=== PATIENT | female | born 1950 | race Caucasian/White ===

== ENCOUNTER 2020-04-21 12:29 | Observation (INO) | payer MEDICARE ==
[2020-04-21] MEDS ORDERED: SODIUM CHLORIDE 0.9% 1,000 ML IV STA (12:53)
[2020-04-21] MEDS ORDERED: TRIMETHOBENZAMIDE 100 MG/ML 2 ML VIAL IM STA (12:54)
--- NOTE | 2020-04-21 13:12 | ED ---
Dizziness HPI - General Chief Complaint: Syncope Stated Complaint: Near syncope Time Seen by Provider: 04/21/20 12:35 Source: patient Mode of arrival: ambulatory Limitations: no limitations - History of Present Illness Initial Comments: Patient is a 69-year-old female with past medical history of hypertension presents emergency department after she almost had a syncopal episode at home. She states she was earlier cutting grass and pulling weeds. She felt very faint and the head and therefore went inside. She was nauseated and started having episodes of dry heaving. She got a cool rag to put on her head is she felt extremely heated. She then sat down in the chair and continued to have nausea, dry heaving with some left-sided chest pain and left hand numbness. She denies any medical problems. Does not take any medications. Denies headaches or visual changes. No neck pain. Denies any recent fevers or chills. No cough or shortness of breath. Denies any abdominal pain or changes in her bowel or bladder habits. She has never had a cardiac workup. No other alleviating, precipitating or modifying factors - Related Data Previous Rx's Medication Instructions Recorded Aspirin 81 mg PO DAILY #30 chew 04/22/20 Atorvastatin [Lipitor] 40 mg PO HS #30 tab 04/22/20 Losartan [Cozaar] 25 mg PO DAILY #30 tab 04/22/20 Metoprolol Succinate (ER) [Toprol 50 mg PO HS #30 tab.er.24h 04/22/20 XL] Nitroglycerin Sl Tabs [Nitrostat] 0.4 mg SUBLINGUAL Q5M PRN #25 tab 04/22/20 Allergies Allergy/AdvReac Type Severity Reaction Status Date / Time No Known Allergies Allergy Verified 04/21/20 13:17 Review of Systems ROS Statement: Those systems with pertinent positive or pertinent negative responses have been documented in the HPI. ROS Other: All systems not noted in ROS Statement are negative. Past Medical History Past Medical History: Hypertension History of Any Multi-Drug Resistant Organisms: None Reported Past Surgical History: No Surgical Hx Reported Past Psychological History: No Psychological Hx Reported Smoking Status: Never smoker Past Alcohol Use History: Daily Past Drug Use History: None Reported - Past Family History Mother Family Medical History: Unable to Obtain General Exam Limitations: no limitations General appearance: alert, in no apparent distress Head exam: Present: atraumatic, normocephalic, normal inspection Eye exam: Present: normal appearance, PERRL, EOMI. Absent: scleral icterus, con junctival injection, periorbital swelling ENT exam: Present: normal exam, mucous membranes moist Neck exam: Present: normal inspection. Absent: tenderness, meningismus, lymphadenopathy Respiratory exam: Present: normal lung sounds bilaterally. Absent: respiratory distress, wheezes, rales, rhonchi, stridor Cardiovascular Exam: Present: normal rhythm, tachycardia, normal heart sounds. Absent: systolic murmur, diastolic murmur, rubs, gallop, clicks GI/Abdominal exam: Present: soft, normal bowel sounds. Absent: distended, tenderness, guarding, rebound, rigid Extremities exam: Present: normal inspection, full ROM, normal capillary refill. Absent: tenderness, pedal edema, joint swelling, calf tenderness Back exam: Present: normal inspection Neurological exam: Present: alert, oriented X3, CN II-XII intact Psychiatric exam: Present: normal affect, normal mood Skin exam: Present: warm, intact, normal color, diaphoretic. Absent: rash Course Vital Signs 04/21/20 04/21/20 04/21/20 12:32 12:45 13:00 Temperature 98 F Pulse Rate 118 H 125 H 112 H Respiratory 18 32 H 12 Rate Blood Pressure 124/74 134/86 O2 Sat by Pulse 100 95 Oximetry 04/21/20 04/21/20 04/21/20 13:30 13:53 14:00 Temperature Pulse Rate 113 H 113 H 95 Respiratory 18 14 Rate Blood Pressure 131/91 144/90 O2 Sat by Pulse 99 Oximetry 04/21/20 04/21/20 04/21/20 14:30 14:49 15:00 Temperature Pulse Rate 89 96 87 Respiratory 10 L 12 21 Rate Blood Pressure 161/103 147/95 147/95 O2 Sat by Pulse 98 97 97 Oximetry 04/21/20 04/21/20 04/21/20 15:30 16:00 16:30 Temperature Pulse Rate 90 83 87 Respiratory 23 17 16 Rate Blood Pressure 146/89 150/100 154/89 O2 Sat by Pulse 97 97 96 Oximetry 04/21/20 04/21/20 04/21/20 17:00 17:30 18:00 Temperature Pulse Rate 81 81 90 Respiratory 9 L 17 17 Rate Blood Pressure 165/95 159/92 173/98 O2 Sat by Pulse 98 97 97 Oximetry 04/21/20 18:11 Temperature 98 F Pulse Rate 90 Respiratory 17 Rate Blood Pressure 173/98 O2 Sat by Pulse 97 Oximetry EKG Findings - EKG Comments: EKG Findings:: EKG demonstrates a sinus tachycardia with a ventricular rate of 125. AK interval of 140. QRS 94. QTC 44. S1, Q3 T3 present. No acute ST segment elevations or depressions concerning for ischemic changes. Prolonged QTC Medical Decision Making - Medical Decision Making Arrival the patient is placed into room 1. A thorough history and physical exam was performed. She is hooked up to continuous pulse ox and cardiac monitoring. Peripheral IV is established. She was given a liter bolus of normal saline. I also provided her with 200 mg IM Tigan. Laboratory studies were conducted and the patient went for chest x-ray. Laboratory studies are unremarkable for an elevated troponin of 0.083. The patient has no contra indications to heparin. We did discuss results and recommendation for hepatization for which she did agree. Patient was given a full dose aspirin. Chest x-ray is negative for any acute process. I did call and discuss the case with Dr. Irene who accepted admission for the patient. I also notified Dr. Arechiga at 1525 PM. He does present to the emergency room and evaluate the patient himself. Patient is currently awaiting a bed on the floor - Lab Data Result diagrams: 04/22/20 10:53 04/22/20 10:53 Lab Results 04/21/20 04/21/20 04/21/20 Range/Units 13:28 13:28 13:28 WBC 9.4 (3.8-10.6) k/uL RBC 5.60 H (3.80-5.40) m/uL Hgb 15.8 (11.4-16.0) gm/dL Hct 49.7 H (34.0-46.0) % MCV 88.6 (80.0-100.0) fL MCH 28.3 (25.0-35.0) pg MCHC 31.9 (31.0-37.0) g/dL RDW 13.9 (11.5-15.5) % Plt Count 195 (150-450) k/uL Neutrophils % 77 % Lymphocytes % 16 % Monocytes % 5 % Eosinophils % 2 % Basophils % 1 % Neutrophils # 7.2 (1.3-7.7) k/uL Lymphocytes # 1.5 (1.0-4.8) k/uL Monocytes # 0.5 (0-1.0) k/uL Eosinophils # 0.1 (0-0.7) k/uL Basophils # 0.1 (0-0.2) k/uL PT 9.7 (9.0-12.0) sec INR 0.9 (<1.2) APTT 22.7 (22.0-30.0) sec D-Dimer 0.29 (<0.60) mg/L FEU Sodium (137-145) mmol/L Potassium (3.5-5.1) mmol/L Chloride (98-107) mmol/L Carbon Dioxide (22-30) mmol/L Anion Gap mmol/L BUN (7-17) mg/dL Creatinine (0.52-1.04) mg/dL Est GFR (CKD-EPI)AfAm (>60 ml/min/1.73 sqM) Est GFR (CKD-EPI)NonAf (>60 ml/min/1.73 sqM) Glucose (74-99) mg/dL Calcium (8.4-10.2) mg/dL Total Bilirubin (0.2-1.3) mg/dL AST (14-36) U/L ALT (4-34) U/L Alkaline Phosphatase (38-126) U/L Creatine Kinase (30-135) U/L Troponin I (0.000-0.034) ng/mL Total Protein (6.3-8.2) g/dL Albumin (3.5-5.0) g/dL TSH (0.465-4.680) mIU/L Urine Color Yellow Urine Appearance Clear (Clear) Urine pH 6.5 (5.0-8.0) Ur Specific [place] 1.013 (1.001-1.035) Urine Protein Trace H (Negative) Urine Glucose (UA) Negative (Negative) Urine Ketones Negative (Negative) Urine Blood Negative (Negative) Urine Nitrite Negative (Negative) Urine Bilirubin Negative (Negative) Urine Urobilinogen <2.0 (<2.0) mg/dL Ur Leukocyte Esterase Moderate H (Negative) Urine RBC <1 (0-5) /hpf Urine WBC 2 (0-5) /hpf Ur Squamous Epith Cells 1 (0-4) /hpf Hyaline Casts 11 H (0-2) /lpf Granular Casts 4 (0) /lpf Urine Mucus Rare H (None) /hpf 04/21/20 04/21/20 Range/Units 13:28 13:28 WBC (3.8-10.6) k/uL RBC (3.80-5.40) m/uL Hgb (11.4-16.0) gm/dL Hct (34.0-46.0) % MCV (80.0-100.0) fL MCH (25.0-35.0) pg MCHC (31.0-37.0) g/dL RDW (11.5-15.5) % Plt Count (150-450) k/uL Neutrophils % % Lymphocytes % % Monocytes % % Eosinophils % % Basophils % % Neutrophils # (1.3-7.7) k/uL Lymphocytes # (1.0-4.8) k/uL Monocytes # (0-1.0) k/uL Eosinophils # (0-0.7) k/uL Basophils # (0-0.2) k/uL PT (9.0-12.0) sec INR (<1.2) APTT (22.0-30.0) sec D-Dimer (<0.60) mg/L FEU Sodium 140 (137-145) mmol/L Potassium 3.8 (3.5-5.1) mmol/L Chloride 108 H (98-107) mmol/L Carbon Dioxide 22 (22-30) mmol/L Anion Gap 10 mmol/L BUN 14 (7-17) mg/dL Creatinine 1.01 (0.52-1.04) mg/dL Est GFR (CKD-EPI)AfAm 65 (>60 ml/min/1.73 sqM) Est GFR (CKD-EPI)NonAf 57 (>60 ml/min/1.73 sqM) Glucose 96 (74-99) mg/dL Calcium 9.6 (8.4-10.2) mg/dL Total Bilirubin 0.7 (0.2-1.3) mg/dL AST 31 (14-36) U/L ALT 20 (4-34) U/L Alkaline Phosphatase 89 (38-126) U/L Creatine Kinase 40 (30-135) U/L Troponin I 0.083 H* (0.000-0.034) ng/mL Total Protein 7.1 (6.3-8.2) g/dL Albumin 4.2 (3.5-5.0) g/dL TSH 2.170 (0.465-4.680) mIU/L Urine Color Urine Appearance (Clear) Urine pH (5.0-8.0) Ur Specific [place] (1.001-1.035) Urine Protein (Negative) Urine Glucose (UA) (Negative) Urine Ketones (Negative) Urine Blood (Negative) Urine Nitrite (Negative) Urine Bilirubin (Negative) Urine Urobilinogen (<2.0) mg/dL Ur Leukocyte Esterase (Negative) Urine RBC (0-5) /hpf Urine WBC (0-5) /hpf Ur Squamous Epith Cells (0-4) /hpf Hyaline Casts (0-2) /lpf Granular Casts (0) /lpf Urine Mucus (None) /hpf Critical Care Time Critical Care Time: Yes Critical Care Time: 32 minutes Disposition Clinical Impression: Chest pain, NSTEMI (non-ST elevated myocardial infarction) Disposition: ADMITTED IP TO THIS [facility] Condition: Stable Is patient prescribed a controlled substance at d/c from ED?: No Decision to Admit Reason: Admit from EC Decision Date: 04/21/20 Decision Time: 15:11
[2020-04-21 13:36] LABS: Basophils # (A) 0.1 k/uL (0-0.2); Basophils % (A) 1 %; Eosinophils # (A) 0.1 k/uL (0-0.7); Eosinophils % (A) 2 %; HCT 49.7 % (34.0-46.0); HGB 15.8 gm/dL (11.4-16.0); Lymphocytes # (A) 1.5 k/uL (1.0-4.8); Lymphocytes % (A) 16 %; MCH 28.3 pg (25.0-35.0); MCHC 31.9 g/dL (31.0-37.0); MCV 88.6 fL (80.0-100.0); Mean Platelet Volume 9.1; Monocytes # (A) 0.5 k/uL (0-1.0); Monocytes % (A) 5 %; Neutrophils # (A) 7.2 k/uL (1.3-7.7); Neutrophils % (A) 77 %; Platelet Count 195 k/uL (150-450); RDW 13.9 % (11.5-15.5); WBC 9.4 k/uL (3.8-10.6)
[2020-04-21 13:49] LABS: Albumin 4.2 g/dL (3.5-5.0); Calcium 9.6 mg/dL (8.4-10.2); Potassium 3.8 mmol/L (3.5-5.1); Total Bilirubin 0.7 mg/dL (0.2-1.3); Total Protein 7.1 g/dL (6.3-8.2)
[2020-04-21 13:50] LABS: D-Dimer 0.29 mg/L FEU (<0.60); INR 0.9 (<1.2); Partial Thromboplastin Time 22.7 sec (22.0-30.0); Prothrombin Time 9.7 sec (9.0-12.0)
[2020-04-21 14:00] LABS: Appearance,Urine Clear (Clear); Bilirubin,Urine Negative (Negative); Blood,Urine Negative (Negative); Color,Urine Yellow; Glucose,Urine (UA) Negative (Negative); Granular Casts,Urine 4 /lpf (0); Hyaline Casts,Urine 11 /lpf (0-2); Ketones,Urine Negative (Negative); Leukocyte Esterase,Urine Moderate (Negative); Mucus,Urine Rare /hpf; Nitrite,Urine Negative (Negative); PH, Urine 6.5 (5.0-8.0); Protein,Urine Trace (Negative); RBC,Urine <1 /hpf (0-5); Specific Gravity,Urine 1.013 (1.001-1.035); Squamous Epithelial Cell,Urine 1 /hpf (0-4); Urobilinogen,Urine <2.0 mg/dL (<2.0); WBC,Urine 2 /hpf (0-5)
--- NOTE | 2020-04-21 14:27 | XR ---
EXAMINATION TYPE: XR chest 2V DATE OF EXAM: 04/21/2020 COMPARISON: NONE HISTORY: Shortness of breath TECHNIQUE: Frontal and lateral views of the chest are obtained. FINDINGS: Scattered senescent parenchymal changes noted. Hyperinflation compatible with COPD. No evidence for infiltrate. No evidence for atelectasis. Heart size is stable. Mediastinal structures are stable and grossly unremarkable. No evidence for hilar prominence. Degenerative changes dorsal spine. IMPRESSION: 1. No evidence for acute pulmonary disease.
[2020-04-21] MEDS ORDERED: HEPARIN SODIUM,PORCINE 5,000 UNIT/ML 1 ML VIAL IV PRN (14:32)
[2020-04-21] MEDS ORDERED: HEPARIN SODIUM,PORCINE 5,000 UNIT/ML 1 ML VIAL IV ONE (14:32)
[2020-04-21] MEDS ORDERED: HEPARIN SOD,PORK IN 0.45% NACL 25,000 UNIT in 0.45% NACL 1 250ML.BAG IV SCH (14:45)
[2020-04-21] MEDS ORDERED: NALOXONE 0.4 MG/ML 1 ML VIAL IV PRN (15:11)
[2020-04-21] MEDS ORDERED: ASPIRIN 81 MG PO STA (15:12)
[2020-04-21] MEDS ORDERED: SODIUM CHLORIDE 0.9% 1,000 ML IV SCH (15:15)
[2020-04-21] MEDS ORDERED: NITROGLYCERIN OINT 1 INCH/GM PACKET TOPICAL STA (17:18)
--- NOTE | 2020-04-21 17:21 | P.HPIM ---
History of Present Illness H&P Date: 04/21/20 Chief Complaint: Chest discomfort History of presenting complaint: This is a pleasant 69-year-old patient has not followed with the family doctor for 5 years. Was diagnosed with hypertension and stopped taking her medications. Today she cut the grass and then came back and side in the nearly passed out. [place] nauseated started dry heaving. Also, some chest discomfort th at lasts for short time. No radiation. Was having/hot flashes. No perspiration. She did have some heartburn before going into contact grass. Initial troponin was 0.083 and the ER. Denies any chest pain currently. Laying in bed. Review of systems: GEN.: Tired EYES: None HEENT: None NECK: None RESPIRATORY: None CARDIOVASCULAR: As above GASTROINTESTINAL: None GENITOURINARY: None MUSCULOSKELETAL: [Some joint pains LYMPHATICS: None HEMATOLOGICAL: None PSYCHIATRY: None NEUROLOGICAL: None Past medical history to include: Hypertension patient stopped taking medications Social history: Lives alone. No smoking. Alcohol occasionally Physical examination: VITAL SIGNS: 98, 118, 18, 124/74, 100% on room air GENERAL: [BMI 30.9, laying in bed, awake. EYES: Pupils equal. Conjunctiva normal. HEENT: External appearance of nose and ears normal, oral cavity grossly normal. NECK: JVD not raised; masses not palpable. HEART: First and second heart sounds are normal; no edema. LUNGS: Respiratory rate normal; clear to auscultation. ABDOMEN: Soft, nontender, liver spleen not palpable, no masses palpable. PSYCH: Alert and oriented x3; mood and affect normal. NEUROLOGICAL: Cranial nerves grossly intact; no facial asymmetry, power and sensation grossly intact. LYMPHATICS: No lymph nodes palpable in the axilla and neck INVESTIGATIONS, reviewed in the clinical context: White count 9.4 hemoglobin 15.8 platelets 195 potassium 3.8 creatinine 1.01 Troponin I 0.083, 0.354 TSH 2.1 EKG tracing personally reviewed by me-sinus rhythm Q waves in lead 3 and aVF Chest x-ray film personally reviewed by me-cardiomegaly, portable Assessment: -Acute non-ST elevation myocardial infarction -Essential hypertension -Obesity BMI 30.9 -IV heparin monitoring Plan: Patient is put on IV heparin. Started the patient on beta haydee Lipitor and aspirin. Cartilage was informed. Will need a cardiac catheterization. Care was discussed with the patient. Questions were answered. We will do a 2-D echocardiogram and lipid profile. Past Medical History Past Medical History: Hypertension History of Any Multi-Drug Resistant Organisms: None Reported Past Surgical History: No Surgical Hx Reported Past Psychological History: No Psychological Hx Reported Smoking Status: Never smoker Past Alcohol Use History: Daily Past Drug Use History: None Reported Medications and Allergies Home Medications Medication Instructions Recorded Confirmed Type No Known Home Medications 04/21/20 04/21/20 History Allergies Allergy/AdvReac Type Severity Reaction Status Date / Time No Known Allergies Allergy Verified 04/21/20 13:17 Physical Exam Vitals: Vital Signs Temp Pulse Resp BP Pulse Ox 04/21/20 14:49 96 12 147/95 97 04/21/20 13:53 113 H 04/21/20 13:30 113 H 18 131/91 04/21/20 13:00 112 H 12 134/86 95 04/21/20 12:45 125 H 32 H 04/21/20 12:32 98 F 118 H 18 124/74 100 Intake and Output 04/21/20 04/21/20 04/21/20 06:59 14:59 22:59 Other: Weight 81.647 kg Results CBC & Chem 7: 04/21/20 13:28 04/21/20 13:28 Labs: Abnormal Lab Results - Last 24 Hours (Table) 04/21/20 04/21/20 04/21/20 Range/Units 13:28 13:28 13:28 RBC 5.60 H (3.80-5.40) m/uL Hct 49.7 H (34.0-46.0) % Chloride 108 H (98-107) mmol/L Troponin I (0.000-0.034) ng/mL Urine Protein Trace H (Negative) Ur Leukocyte Esterase Moderate H (Negative) Hyaline Casts 11 H (0-2) /lpf Urine Mucus Rare H (None) /hpf 04/21/20 04/21/20 Range/Units 13:28 16:08 RBC (3.80-5.40) m/uL Hct (34.0-46.0) % Chloride (98-107) mmol/L Troponin I 0.083 H* 0.354 H* (0.000-0.034) ng/mL Urine Protein (Negative) Ur Leukocyte Esterase (Negative) Hyaline Casts (0-2) /lpf Urine Mucus (None) /hpf
--- NOTE | 2020-04-21 20:10 | CONS ---
CONSULTATION CHIEF COMPLAINT: Chest tightness. This is a 69-year-old lady with history of hypertension who has not been taking her of herself, has not been taking any medications regularly. She came into hospital having had an episode of chest tightness, nausea and diaphoresis after she was out cutting her grass and then walked into the house. She had an episode of chest tightness a few days ago, and this is the second episode. She came to the ER, where she was found to be in sinus tachycardia and the troponins were mildly elevated. She denies leg edema, PND or orthopnea. There is no history of coronary artery disease or congestive heart failure. There is no family history of premature coronary artery disease. She is not a smoker. Drinks alcohol every day. MEDICATIONS: None. ALLERGIES: NONE. FAMILY HISTORY: Negative for premature coronary artery disease. SOCIAL HISTORY: Negative for smoking. REVIEW OF SYSTEMS: HEENT is unremarkable. CARDIAC: As described above. RESPIRATORY: As described above. GI: Negative. GENITOURINARY: Negative. ALLERGY: Negative. IMMUNOLOGY: Negative. SKIN: Negative. MUSCULOSKELETAL: DERMATOLOGY: Negative. CONSTITUTIONAL: Negative. ONCOLOGICAL: Negative. ENCAPSULATOR: Negative. Rest of system review is not relevant. PHYSICAL EXAMINATION: Comfortable at rest. Vital signs are stable. Blood pressure is elevated. Heart rate is elevated. There is no jugular venous distention. Carotid upstroke is normal. There is no bruit. Chest exam reveals good air entry bilaterally. Heart exam reveals first and second heart sounds. No gallop. No murmur. No rub. peripheral pulses are felt. ENCAPSULATOR exam does not reveal focal neurological deficits. ASSESSMENT: Acute fwb-[id number]-elevation myocardial infarction. PLAN: for cardiac catheterization tomorrow. In the meantime, will treat her with aspirin, intravenous heparin, nitrates, beta haydee MMODL / IJN: [id number] /
[2020-04-21] MEDS ORDERED: METOPROLOL TARTRATE 25 MG TAB PO SCH (21:00)
[2020-04-21] MEDS ORDERED: METOPROLOL SUCCINATE (ER) 50 MG TAB.ER.24H PO SCH (21:00)
[2020-04-21] MEDS ORDERED: ATORVASTATIN 40 MG TAB PO SCH (21:00)
[2020-04-21] MEDS ORDERED: ACETAMINOPHEN TAB 325 MG TAB PO PRN (22:51)
[2020-04-22 07:55] VITALS: TEMP 97.9
[2020-04-22] MEDS ORDERED: SODIUM CHLORIDE 0.9% 1,000 ML in EMPTY BAG 1 BAG IV ONE (08:09)
[2020-04-22] MEDS ORDERED: ALPRAZolam 0.5 MG TAB PO PRN (08:09)
[2020-04-22] MEDS ORDERED: ALPRAZolam 0.25 MG TAB PO PRN (08:09)
[2020-04-22] MEDS ORDERED: ATORVASTATIN 80 MG TAB PO STA (08:09)
[2020-04-22] MEDS ORDERED: NITROGLYCERIN SL TABS 0.4 MG TAB SUBLINGUAL PRN (08:09)
[2020-04-22] MEDS ORDERED: ASPIRIN 325 MG TAB PO STA (08:09)
[2020-04-22] MEDS ORDERED: ASPIRIN 81 MG PO SCH (09:00)
[2020-04-22] MEDS ORDERED: ASPIRIN 325 MG TAB PO SCH (09:00)
[2020-04-22] MEDS ORDERED: fentaNYL (PF) 50 MCG/ML 2 ML AMP ONE (09:01)
[2020-04-22] MEDS ORDERED: IV FLUID CONTINUATION 950 ML IV ONE (09:03)
[2020-04-22] MEDS ORDERED: fentaNYL (PF) 50 MCG/ML 2 ML AMP IVP ONE (09:05)
[2020-04-22] MEDS ORDERED: MIDAZOLAM 2 MG/2 ML VIAL IVP ONE (09:05)
[2020-04-22] MEDS ORDERED: LIDOCAINE 1% INJ 10MG/ML (20 ML MDV) SQ ONE (09:08)
[2020-04-22] MEDS ORDERED: IOPAMIDOL-370 125ML BTL INJ ONE (09:24)
[2020-04-22] MEDS ORDERED: RX INFO: IV CONTRAST WAS GIVEN 1 EACH MISC MISCELLANE PRN (09:33)
--- NOTE | 2020-04-22 09:47 | ECHOF ---
Referral Reason:Acute SC MEASUREMENTS -------- HEIGHT: 162.6 cm WEIGHT: 81.6 kg BP: IVSd: 1.4 cm (0.6 - 1.1) LVIDd: 3.5 cm (3.9 - 5.3) LVPWd: 1.5 cm (0.6 - 1.1) EDV(Teich): 51 ml IVSs: 1.5 cm LVIDs: 1.4 cm LVPWs: 1.6 cm %IVS Thck: 7 % ESV(Teich): 6 ml EF(Teich): 89 % %FS: 59 % SV(Teich): 46 ml RVIDd: 2.8 cm (< 3.3) IVC: 12.12 mm LALs A4C: 4.3 cm LAAs A4C: 9.1 cm LAESV A-L A4C: 17 ml LAESV MOD A4C: 15 ml LALs A2C: 4.7 cm LAAs A2C: 14.5 cm LAESV A-L A2C: 38 ml LAESV MOD A2C: 35 ml LAESV(A-L): 26 ml LAESV Index (A-L): 14.01 ml/m Ao Diam: 3.5 cm (2.0 - 3.7) LA Diam: 3.2 cm (2.7 - 3.8) AV Cusp: 2.2 cm (1.5 - 2.6) EPSS: 0.8 cm MV E Dejna: 1.00 m/s MV DecT: 133 ms MV Dec Isabela: 7.5 m/s MV A Dejan: 1.42 m/s MV E/A Ratio: 0.70 MV PHT: 39 ms MR Vmax: 1.03 m/s MR maxP.27 mmHg AV Vmax: 1.09 m/s AV maxP.71 mmHg TR Vmax: 1.22 m/s TR maxP.99 mmHg RAP: 5.00 mmHg RVSP: 10.99 mmHg MV EF SLOPE: 51.88 mm/s (70 - 150) MV EXCURSION: 14.92 mm (> 18.000) FINDINGS -------- This was a technically adequate study. The left ventricular size is normal. There is moderate concentric left ventricular hypertrophy. O verall left ventricular systolic function is normal with, an EF between 55 - 60 %. Normal LAP. Grad e 1 Diastolic Dysfunction. The right ventricle is normal in size. The left atrial size is normal. Normal LA size by volume 22+/-6 ml/m2. The right atrial size is normal. Interatrial and interventricular septum intact. The aortic valve is trileaflet and appears structurally normal. The mitral valve is normal. There is trace mitral regurgitation. The tricuspid valve appears structurally normal. Trace tricuspid regurgitation present. Right romy tricular systolic pressure is normal at < 35 mmHg. There is no pulmonic regurgitation present. The aortic root size is normal. Normal inferior vena cava with normal inspiratory collapse consistent with estimated right atrial pre ssure of 5 mmHg. There is no pericardial effusion. CONCLUSIONS -------- 1. The left ventricular size is normal. 2. There is moderate concentric left ventricular hypertrophy. 3. Overall left ventricular systolic function is normal with, an EF between 55 - 60 %. 4. Normal LAP. Grade 1 Diastolic Dysfunction. 5. There is trace mitral regurgitation. 6. Trace tricuspid regurgitation present. 7. There is no pericardial effusion. [employer]: Ashley Williamson, [facility]
[2020-04-22 10:28] VITALS: RESP 16
[2020-04-22] MEDS ORDERED: LOSARTAN 25 MG TAB PO SCH (11:13)
[2020-04-22 11:29] LABS: Basophils # (A) 0.1 k/uL (0-0.2); Basophils % (A) 1 %; Eosinophils # (A) 0.1 k/uL (0-0.7); Eosinophils % (A) 1 %; HCT 41.7 % (34.0-46.0); HGB 13.2 gm/dL (11.4-16.0); Lymphocytes # (A) 1.8 k/uL (1.0-4.8); Lymphocytes % (A) 26 %; MCH 28.5 pg (25.0-35.0); MCHC 31.7 g/dL (31.0-37.0); MCV 89.8 fL (80.0-100.0); Monocytes # (A) 0.4 k/uL (0-1.0); Monocytes % (A) 5 %; Neutrophils # (A) 4.5 k/uL (1.3-7.7); Neutrophils % (A) 66 %; Platelet Count 144 k/uL (150-450); RBC 4.64 m/uL (3.80-5.40); WBC 6.9 k/uL (3.8-10.6)
[2020-04-22 11:38] LABS: Calcium 8.5 mg/dL (8.4-10.2); Potassium 4.3 mmol/L (3.5-5.1)
--- NOTE | 2020-04-22 12:15 | CC ---
CARDIAC CATHETERIZATION REPORT INDICATION: Acute non ST-segment elevation ND. PROCEDURE NOTE: After obtaining informed consent, left heart catheterization and coronary angiogram were performed via the right femoral artery using standard Zeus catheters. The patient tolerated the procedure well without any obvious immediate complications. A femoral angiogram was performed and decision was made for manual hemostasis. Patient received moderate conscious sedation and total sedation time was 17 minutes. FINDINGS: HEMODYNAMICS: Left ventricular end-diastolic pressure is 16 mm. There is no significant gradient across the aortic valve. LEFT VENTRICULOGRAM: Not performed. ANGIOGRAPHIC DATA: LEFT MAIN CORONARY ARTERY: Left main coronary artery is a normal-sized vessel and is free of stenosis. Divides into left anterior descending coronary artery and circumflex coronary artery. LEFT ANTERIOR DESCENDING CORONARY ARTERY: LAD and its branches, circumflex coronary artery and its branches are free of significant stenosis. RIGHT CORONARY ARTERY: Right coronary artery is a large dominant vessel and is free of significant disease. CONCLUSIONS: Normal coronary arteries. PLAN: The exact etiology for troponin elevation is undetermined. The patient has uncontrolled hypertension. We will treat it aggressively. Will follow the echo results. Hopefully she can be discharged home in the morning. MMODL / IJN: [id number] /
[2020-04-22 12:23] LABS: INR 0.9 (<1.2); Partial Thromboplastin Time 26.7 sec (22.0-30.0); Prothrombin Time 9.9 sec (9.0-12.0)
[2020-04-22 16:36] VITALS: BP 148/80; PULSE 79
--- NOTE | 2020-04-22 22:25 | P.DS ---
Providers Date of admission: 04/21/20 15:15 Expected date of discharge: 04/22/20 Attending physician: Curtis Irene Consults: 04/21/20 15:11 Consult Physician Urgent Consulting Provider: [facility] Consult Reason/Comments: acute chest pain, NSTEMI Do you want consulting provider notified?: Yes Primary care physician: [facility] Course: Chief Complaint: Chest discomfort History of presenting complaint: This is a pleasant 69-year-old patient has not followed with the family doctor for 5 years. Was diagnosed with hypertension and stopped taking her medications. Today she cut the grass and then came back and side in the nearly passed out. [place] nauseated started dry heaving. Also, some chest discomfort that lasts for short time. No radiation. Was having/hot flashes. No perspiration. She did have some heartburn before going into contact grass. Initial troponin was 0.083 and the ER. Denies any chest pain currently. Laying in bed. Today-underwent cardiac catheterization. Coronary arteries normal. Possible patient may have had a plaque rupture. With a small area of infarct. 2-D echo results noted. No wall motion abnormality. Results were discussed in detail with the patient and daughter the bedside. Risk factor modification was discussed. Questions answered. Antihypertensive started Discussion and discharge planning more than 35 minutes Consultation: Dr. Jona Arechiga from cardiology Physical examination: VITAL SIGNS: 97.9, 68, 16, 140/85, GENERAL: [BMI 30.9, laying in bed, awake. EYES: Pupils equal. Conjunctiva normal. NECK: JVD not raised; masses not palpable. HEART: First and second heart sounds are normal; no edema. LUNGS: Respiratory rate normal; clear to auscultation. ABDOMEN: Soft, nontender, liver spleen not palpable, no masses palpable. PSYCH: Alert and oriented x3; mood and affect normal. INVESTIGATIONS, reviewed in the clinical context: White count 9.4 hemoglobin 15.8 platelets 195 potassium 3.8 creatinine 1.01 Troponin I 0.083, 0.354 TSH 2.1 EKG tracing personally reviewed by me-sinus rhythm Q waves in lead 3 and aVF Chest x-ray film personally reviewed by me-cardiomegaly, portable 2-D echocardiogram-EF 55-60%, moderate concentric LVH Assessment: -Acute non-ST elevation myocardial infarction-possibly from plaque rupture -Essential hypertension -Obesity BMI 30.9 -IV heparin monitoring -Cardiac catheterization with normal coronaries -Hypertensive heart disease Disposition: Home Patient Condition at Discharge: Stable Plan - Discharge Summary Discharge Rx Participant: No New Discharge Prescriptions: New Aspirin 81 mg PO DAILY #30 chew Losartan [Cozaar] 25 mg PO DAILY #30 tab Atorvastatin [Lipitor] 40 mg PO HS #30 tab Nitroglycerin Sl Tabs [Nitrostat] 0.4 mg SUBLINGUAL Q5M PRN #25 tab PRN Reason: Chest Pain Metoprolol Succinate (ER) [Toprol XL] 50 mg PO HS #30 tab.er.24h Discharge Medication List Aspirin 81 mg PO DAILY #30 chew 04/22/20 [Rx] Atorvastatin [Lipitor] 40 mg PO HS #30 tab 04/22/20 [Rx] Losartan [Cozaar] 25 mg PO DAILY #30 tab 04/22/20 [Rx] Metoprolol Succinate (ER) [Toprol XL] 50 mg PO HS #30 tab.er.24h 04/22/20 [Rx] Nitroglycerin Sl Tabs [Nitrostat] 0.4 mg SUBLINGUAL Q5M PRN #25 tab 04/22/20 [Rx] Follow up Appointment(s)/Referral(s): Chintan Fritz MD [Primary Care Provider] - 1 Week (Please call and schedule follow up appointment on Saturday. Office closed at this time. ) Mason Arechiga MD [STAFF PHYSICIAN] - 05/02/20 9:45 am Patient Instructions/Handouts: Left Heart Catheterization (DC), How to Stop Smoking (DC), Heart Healthy Diet (DC), Hypertension (DC) Activity/Diet/Wound Care/Special Instructions: CARDIAC CATH 1. Support your puncture site by applying firm, steady pressure whenever you cough, laugh, sneeze or bear down to have a bowel movement (2-day restriction). 2. Watch for any excessive bruising, active bleeding, a firm knot forming under your skin, extreme tenderness and signs of infection (redness, swelling, fever). 3. Shower daily, do not soak puncture in a tub bath, jacuzzi, pool, [place] etc. for 1 week. This is to prevent risk of infection. 4. Drink plenty of fluids the day of and day after your procedure to flush contrast dye out of your kidneys. 5. Take all medications as directed. Never stop any new medication without your physicians OK. 6. No driving for 2 days after procedure. 7. 10- pound weight lifting restriction for 1 week. 8. Low sodium/low fat diet. 9. Activity limited until follow up appointment with your construction analyst. In case of any problems, please call [facility] [place] @ [phone]. Discharge Disposition: HOME SELF-CARE
[2020-04-23] MEDS ORDERED: ASPIRIN 325 MG TAB PO SCH (09:00)
[2020-04-23] MEDS ORDERED: LOSARTAN 25 MG TAB PO SCH (09:00)
[2020-04-23] MEDS ORDERED: ASPIRIN 81 MG PO SCH (09:00)
== END 2020-04-22 18:10 | disposition home or self-care (01) ==
LOC: EC 12:29 → 3SCARD 15:15
PROVIDERS: ADMIT Hospitalist; ATTEND Hospitalist
DX: I21.4 Non-ST elevation (NSTEMI) myocardial infarction (principal); R55 Syncope and collapse; I10 Essential (primary) hypertension; I11.9 Hypertensive heart disease without heart failure; E66.9 Obesity, unspecified; Z68.30 Body mass index [BMI] 30.0-30.9, adult; Z91.14 Patient's other noncompliance with medication regimen; Z79.82 Long term (current) use of aspirin; Z79.899 Other long term (current) drug therapy
CPT/HCPCS: 96366 ×3; 93005 ×2; 96376; 96361; 96365; 96372; 99285; 36415; 93306; 93458; 85379; 80061; 80053; 80048; 84443; 82550; 84484; 85025 ×2; 85610 ×2; 85730 ×2; 81001; 71046; G0378 ×2; C1769 ×2; C1894; J2250; J1644 ×2; J3250; J2001; J3010; Q9967

== ENCOUNTER 2020-05-08 13:38 | Emergency (ER) | payer MEDICARE ==
[2020-05-08 13:45] VITALS: RESP 18; TEMP 98.4
--- NOTE | 2020-05-08 13:58 | ED ---
General Adult HPI - General Chief complaint: Chest Pain Stated complaint: chest pain Time Seen by Provider: 05/08/20 13:49 Source: patient Mode of arrival: ambulatory Limitations: no limitations - History of Present Illness Initial comments: Dictation was produced using SinglePlatform dictation software. please excuse any grammatical, word or spelling errors. This patient was cared for during a federal and state declared state of emergency secondary to Covid 19 Chief Complaint: 69-year-old female with past medical history of hypertension, myocardial infarction presents today with chest tightness. History of Present Illness: It is a 69-year-old female she presents today with chest tightness that began at 9 AM this morning. One week ago patient was admitted to the hospital for same complaint. At that time she was evaluated by cardiology and had a cardiac catheterization performed. She did not have any stents placed during that time. She is been sluggish consuming discharge from the hospital week ago. She is concerned about her symptoms today decided come to the emergency department. Patient denies any radiation of symptoms to her shoulders. No associated diaphoresis. She does report that she does have some associated nausea. The ROS documented in this emergency department record has been reviewed and confirmed by me. Those systems with pertinent positive or negative responses have been documented in the HPI. All other systems are other negative and/or noncontributory. PHYSICAL EXAM: General Impression: Alert and oriented x3, not in acute distress HEENT: Normocephalic atraumatic, extra-ocular movements intact, pupils equal and reactive to light bilaterally, mucous membranes moist. Cardiovascular: Heart regular rate and rhythm Chest: Able to complete full sentences, no retractions, no tachypnea Abdomen: abdomen soft, non-tender, non-distended, no organomegaly Musculoskeletal: Pulses present and equal in all extremities, no peripheral edema Motor: no focal deficits noted Neurological: CN II-XII grossly intact, no focal motor or sensory deficits noted Skin: Intact with no visualized rashes Psych: Normal affect and mood ED course: 69-year-old female presents with symptoms concerning for ACS. Signs upon arrival are within acceptable limits. Patient was seen 1 week ago and admitted to the hospital where she had cardiac cath, echocardiogram performed. She did not have any stent placement performed at that time. Cath report was reviewed. Patient had normal coronary artery angiograms. There is no obvious cause for patient's elevated troponin. Echocardiogram. Mostly unremarkable except for some trace regurgitation with mitral and tricuspid. Chart review shows that patient was here in our hospital 2 weeks ago. Her troponin was elevated 0.377 and decreased 2.083. She had a d-dimer performed upon initial evaluation of 0.29. Laboratory evaluation obtained. CBC unremarkable. Coag panel is negative. Metabolic panel is unremarkable. Troponin is negative. Creatinine is elevated which is above her baseline. Chest x-ray is nonacute. Disposition options were discussed with patient. She understands that it's difficult to exclude acute coronary syndrome with only one troponin. However she would like to be discharged. Patient was given another disposition options of waiting for a 3 hour troponin in the emergency department. She would prefer to be discharge and to follow-up with her primary care physician. Patient understands that we have not ruled out acute coronary syndrome with reasonable certainty if we do not have a second troponin. Nonetheless patient is low risk given recent cardiac catheterization and is negative and recent negative cardiac echocardiogram. Patient like some steroid for her ALLERGY-type symptoms. Patient is agreeable with plan. She knows to return or seek immediate medical attention if her symptoms acutely worsen. EKG interpretation: Ventricular rate 74, normal sinus rhythm, ID interval 1:30, QRS 96, QTC 448. No ID prolongation, no QTC prolongation, no ST or T-wave changes noted. Overall, this EKG is unremarkable - Related Data Home Medications Medication Instructions Recorded Confirmed Cholecalciferol [Vitamin D3 (25 1,000 unit PO DAILY 05/08/20 05/08/20 Mcg = 1000 Iu)] Losartan [Cozaar] 25 mg PO BID 05/08/20 05/08/20 Metoprolol Succinate (ER) [Toprol 50 mg PO HS 05/08/20 05/08/20 XL] Previous Rx's Medication Instructions Recorded Aspirin 81 mg PO DAILY #30 chew 04/22/20 Atorvastatin [Lipitor] 40 mg PO HS #30 tab 04/22/20 Nitroglycerin Sl Tabs [Nitrostat] 0.4 mg SUBLINGUAL Q5M PRN #25 tab 04/22/20 Allergies Allergy/AdvReac Type Severity Reaction Status Date / Time No Known Allergies Allergy Verified 05/08/20 15:04 Review of Systems ROS Statement: Those systems with pertinent positive or pertinent negative responses have been documented in the HPI. ROS Other: All systems not noted in ROS Statement are negative. Past Medical History Past Medical History: Hypertension, Myocardial Infarction ([place]) History of Any Multi-Drug Resistant Organisms: None Reported Past Surgical History: Heart Catheterization Past Psychological History: No Psychological Hx Reported Smoking Status: Never smoker Past Alcohol Use History: Occasional Past Drug Use History: None Reported - Past Family History Mother Family Medical History: Unable to Obtain General Exam Limitations: no limitations Course Vital Signs 05/08/20 05/08/20 13:42 15:01 Temperature 98.4 F Pulse Rate 85 84 Respiratory 18 18 Rate Blood Pressure 160/85 151/91 O2 Sat by Pulse 98 96 Oximetry Medical Decision Making - Lab Data Result diagrams: 05/08/20 14:03 05/08/20 14:03 Lab Results 05/08/20 05/08/20 05/08/20 Range/Units 14:03 14:03 14:03 WBC 8.1 (3.8-10.6) k/uL RBC 4.81 (3.80-5.40) m/uL Hgb 13.9 (11.4-16.0) gm/dL Hct 42.6 (34.0-46.0) % MCV 88.4 (80.0-100.0) fL MCH 28.8 (25.0-35.0) pg MCHC 32.6 (31.0-37.0) g/dL RDW 13.9 (11.5-15.5) % Plt Count 217 (150-450) k/uL Neutrophils % 66 % Lymphocytes % 23 % Monocytes % 6 % Eosinophils % 2 % Basophils % 1 % Neutrophils # 5.4 (1.3-7.7) k/uL Lymphocytes # 1.9 (1.0-4.8) k/uL Monocytes # 0.5 (0-1.0) k/uL Eosinophils # 0.2 (0-0.7) k/uL Basophils # 0.1 (0-0.2) k/uL PT 9.7 (9.0-12.0) sec INR 0.9 (<1.2) APTT 23.6 (22.0-30.0) sec Sodium 137 (137-145) mmol/L Potassium 4.2 (3.5-5.1) mmol/L Chloride 106 (98-107) mmol/L Carbon Dioxide 24 (22-30) mmol/L Anion Gap 7 mmol/L BUN 25 H (7-17) mg/dL Creatinine 1.47 H (0.52-1.04) mg/dL Est GFR (CKD-EPI)AfAm 41 (>60 ml/min/1.73 sqM) Est GFR (CKD-EPI)NonAf 36 (>60 ml/min/1.73 sqM) Glucose 107 H (74-99) mg/dL Calcium 9.3 (8.4-10.2) mg/dL Magnesium 2.0 (1.6-2.3) mg/dL Total Bilirubin 0.7 (0.2-1.3) mg/dL AST 31 (14-36) U/L ALT 27 (4-34) U/L Alkaline Phosphatase 91 (38-126) U/L Creatine Kinase 43 (30-135) U/L CK-MB (CK-2) (0.0-2.4) ng/mL Troponin I (0.000-0.034) ng/mL NT-Pro-B Natriuret Pep pg/mL Total Protein 6.6 (6.3-8.2) g/dL Albumin 3.9 (3.5-5.0) g/dL 05/08/20 05/08/20 Range/Units 14:03 14:03 WBC (3.8-10.6) k/uL RBC (3.80-5.40) m/uL Hgb (11.4-16.0) gm/dL Hct (34.0-46.0) % MCV (80.0-100.0) fL MCH (25.0-35.0) pg MCHC (31.0-37.0) g/dL RDW (11.5-15.5) % Plt Count (150-450) k/uL Neutrophils % % Lymphocytes % % Monocytes % % Eosinophils % % Basophils % % Neutrophils # (1.3-7.7) k/uL Lymphocytes # (1.0-4.8) k/uL Monocytes # (0-1.0) k/uL Eosinophils # (0-0.7) k/uL Basophils # (0-0.2) k/uL PT (9.0-12.0) sec INR (<1.2) APTT (22.0-30.0) sec Sodium (137-145) mmol/L Potassium (3.5-5.1) mmol/L Chloride (98-107) mmol/L Carbon Dioxide (22-30) mmol/L Anion Gap mmol/L BUN (7-17) mg/dL Creatinine (0.52-1.04) mg/dL Est GFR (CKD-EPI)AfAm (>60 ml/min/1.73 sqM) Est GFR (CKD-EPI)NonAf (>60 ml/min/1.73 sqM) Glucose (74-99) mg/dL Calcium (8.4-10.2) mg/dL Magnesium (1.6-2.3) mg/dL Total Bilirubin (0.2-1.3) mg/dL AST (14-36) U/L ALT (4-34) U/L Alkaline Phosphatase (38-126) U/L Creatine Kinase (30-135) U/L CK-MB (CK-2) 0.7 (0.0-2.4) ng/mL Troponin I <0.012 (0.000-0.034) ng/mL NT-Pro-B Natriuret Pep 125 pg/mL Total Protein (6.3-8.2) g/dL Albumin (3.5-5.0) g/dL Disposition Clinical Impression: Chest tightness Disposition: HOME SELF-CARE Condition: Good Instructions (If sedation given, give patient instructions): Chest Pain (ED) Is patient prescribed a controlled substance at d/c from ED?: No Referrals: Chintan Fritz MD [Primary Care Provider] - 1-2 days Time of Disposition: 15:41
[2020-05-08 14:23] LABS: Basophils # (A) 0.1 k/uL (0-0.2); Basophils % (A) 1 %; Eosinophils # (A) 0.2 k/uL (0-0.7); Eosinophils % (A) 2 %; HCT 42.6 % (34.0-46.0); HGB 13.9 gm/dL (11.4-16.0); Lymphocytes # (A) 1.9 k/uL (1.0-4.8); Lymphocytes % (A) 23 %; MCH 28.8 pg (25.0-35.0); MCHC 32.6 g/dL (31.0-37.0); MCV 88.4 fL (80.0-100.0); Mean Platelet Volume 9.1; Monocytes # (A) 0.5 k/uL (0-1.0); Monocytes % (A) 6 %; Neutrophils # (A) 5.4 k/uL (1.3-7.7); Neutrophils % (A) 66 %; Platelet Count 217 k/uL (150-450); RBC 4.81 m/uL (3.80-5.40); RDW 13.9 % (11.5-15.5); WBC 8.1 k/uL (3.8-10.6)
--- NOTE | 2020-05-08 14:29 | XR ---
EXAMINATION TYPE: XR chest 2V DATE OF EXAM: 05/08/2020 COMPARISON: 04/21/2020 HISTORY: Chest pain TECHNIQUE: 2 views FINDINGS: Heart is normal. Lungs are clear of infiltrate. Costophrenic angles are clear. There are ch est leads. Bony thorax is intact. IMPRESSION: No active cardiopulmonary disease. Normal heart.
[2020-05-08 14:31] LABS: INR 0.9 (<1.2); Partial Thromboplastin Time 23.6 sec (22.0-30.0); Prothrombin Time 9.7 sec (9.0-12.0)
[2020-05-08 14:32] LABS: Albumin 3.9 g/dL (3.5-5.0); Calcium 9.3 mg/dL (8.4-10.2); Potassium 4.2 mmol/L (3.5-5.1); Total Bilirubin 0.7 mg/dL (0.2-1.3); Total Protein 6.6 g/dL (6.3-8.2)
[2020-05-08 14:54] LABS: Creatine Kinase MB 0.7 ng/mL (0.0-2.4); Troponin I <0.012 ng/mL (0.000-0.034)
[2020-05-08 15:03] VITALS: PULSE 84
[2020-05-08 15:04] VITALS: BP 151/91
[2020-05-08] MEDS ORDERED: DEXAMETHASONE SOD PHOSPHATE 10 MG/ML 1 ML VIAL IV STA (15:42)
[2020-05-08] MEDS ORDERED: ASPIRIN 81 MG PO STA (15:42)
== END 2020-05-08 15:55 | disposition home or self-care (01) ==
LOC: EC 13:38
DX: R07.89 Other chest pain (principal); I10 Essential (primary) hypertension; R79.89 Other specified abnormal findings of blood chemistry; I25.2 Old myocardial infarction; Z79.899 Other long term (current) drug therapy
CPT/HCPCS: 36415; 93005; 83880; 80053; 82550; 82553; 83735; 84484; 85025; 85610; 85730; 71046; 99285; 96374; J1100

== ENCOUNTER → 2020-06-17 | Outpatient (CLI) | payer MEDICARE ==
--- NOTE | 2020-06-17 16:08 | US ---
EXAMINATION TYPE: US carotid duplex BILAT DATE OF EXAM: 06/17/2020 COMPARISON: NONE CLINICAL HISTORY: 70-year-old female R42 dizziness. No history of stroke, NE, dizzy TECHNIQUE: Carotid duplex ultrasound examination. Indirect Doppler criteria was utilized. FINDINGS: EXAM MEASUREMENTS: RIGHT: Peak Systolic Velocity (PSV) cm/sec ----- Right CCA: 86.1 ----- Right ICA: 76.4 ----- Right ECA: 107.9 ICA/CCA ratio: 0.9 RIGHT: End Diastole cm/sec ----- Right CCA: 25.6 ----- Right ICA: 25.8 ----- Right ECA: 27.2 LEFT: Peak Systolic Velocity (PSV) cm/sec ----- Left CCA: 91.9 ----- Left ICA: 91.3 ----- Left ECA: 61.7 ICA/CCA ratio: 1.0 LEFT: End Diastole cm/sec ----- Left CCA: 29.9 ----- Left ICA: 40.7 ----- Left ECA: 15.4 VERTEBRALS (direction of flow): Right Vertebral: Antegrade Left Vertebral: Antegrade Rhythm: Normal Loss Prevention Manager notes: Mild homogeneous plaque seen with no significant stenosis IMPRESSION: No hemodynamically significant internal carotid artery stenosis on either side. Criteria for Assigning % of Stenosis / Diameter reduction (Estimation based on the indirect measurements of the internal carotid artery velocities (ICA PSV). 1. Normal (no stenosis)=ICA PSV < 125 cm/s: ratio < 2.0: ICA EDV<40 cm/s. 2. Less than 50% stenosis=ICA PSV < 125 cm/s: ratio < 2.0: ICA EDV<40 cm/s. 3. 50 to 69% stenosis=ICA PSV of 125 to 230 cm/s: ration 2.0 ? 4.0: ICA EDV 40-100 cm/s. 4. Greater than 70% stenosis to near occlusion= ICA PSV > 230 cm/s: ratio > 4.0: ICA EDV > 100 cm/s. 5. Near occlusion= ICA PSV velocities may be low or undetectable: variable ratio and ICA EDV. 6. Total occlusion=unable to detect flow.
== END | disposition home or self-care (01) ==
LOC: RADUSWWP 15:33
PROVIDERS: ATTEND Family Medicine
DX: R42 Dizziness and giddiness (principal)
CPT/HCPCS: 93880

== ENCOUNTER 2020-11-11 12:36 | Emergency (ER) | payer MEDICARE ==
[2020-11-11 13:16] VITALS: TEMP 98.4
--- NOTE | 2020-11-11 13:17 | ED ---
General Adult HPI - General Source: patient, RN notes reviewed Mode of arrival: ambulatory Limitations: no limitations <Baltazar Evans - Last Filed: 11/11/20 13:14> <Lillie Linder - Last Filed: 11/11/20 17:10> - General Stated complaint: Hypertensive, abn EKG Time Seen by Provider: 11/11/20 13:10 - History of Present Illness Initial comments: This a 70-year-old female presents emergency Department chief complaint of hypertension. 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 Patient states that she was told her blood pressure medications were messed up. She was given 2 Prescription for losartan and metoprolol. Patient states that she went for recheck today in which she stopped at a pharmacy blood pressure was elevated and went to urgent care and sent here Patient was sent here for further evaluation. She states she feels slightly dizzy but otherwise no other complaints. (Baltazar Evans) 70-year-old feel presents today for chief complaint of elevated blood pressure reading. Patient states that on Saturday she was at her six-month follow-up with her dowel machine operator after an N STEMI. Patient states that she was told her blood pressure medications were not cracked and they were represcribed. Patient states that she was given a prescription for losartan and metoprolol. Patient states she was told to recheck it so she went to [facility] she states that the BP was high then she went to urgent care and was sent here for further evaluation. Pt states she feels "woozy", like a brain fog, but denies sensation room is spinning, presyncope, syncope, nausea, vomiting, abdominal pain, jaw pain, vision changes weakness sensation deficits, speech changes, difficulty ambulating. Patient appears well nontoxic on my history taking. (Lillie Linder) - Related Data Home Medications Medication Instructions Recorded Confirmed Cholecalciferol [Vitamin D3 (25 1,000 unit PO DAILY 05/08/20 05/08/20 Mcg = 1000 Iu)] Losartan [Cozaar] 25 mg PO BID 05/08/20 05/08/20 Metoprolol Succinate (ER) [Toprol 50 mg PO HS 05/08/20 05/08/20 XL] Previous Rx's Medication Instructions Recorded Aspirin 81 mg PO DAILY #30 chew 04/22/20 Atorvastatin [Lipitor] 40 mg PO HS #30 tab 04/22/20 Nitroglycerin Sl Tabs [Nitrostat] 0.4 mg SUBLINGUAL Q5M PRN #25 tab 04/22/20 Allergies Allergy/AdvReac Type Severity Reaction Status Date / Time No Known Allergies Allergy Verified 11/11/20 13:15 Review of Systems ROS Other: All systems not noted in ROS Statement are negative. <Baltazar Evans - Last Filed: 11/11/20 13:14> ROS Other: All systems not noted in ROS Statement are negative. <Lillie Linder - Last Filed: 11/11/20 17:10> ROS Statement: Those systems with pertinent positive or pertinent negative responses have been documented in the HPI. Past Medical History Past Medical History: Hypertension, Myocardial Infarction ([place]) History of Any Multi-Drug Resistant Organisms: None Reported Past Surgical History: Heart Catheterization Past Psychological History: No Psychological Hx Reported Smoking Status: Never smoker Past Alcohol Use History: Occasional Past Drug Use History: None Reported - Past Family History Mother Family Medical History: Unable to Obtain <Baltazar Evans - Last Filed: 11/11/20 13:14> General Exam General appearance: alert, in no apparent distress Head exam: Present: atraumatic, normocephalic, normal inspection Neck exam: Present: normal inspection, full ROM. Absent: tenderness, meningismus, lymphadenopathy Respiratory exam: Present: normal lung sounds bilaterally. Absent: respiratory distress, wheezes, rales, rhonchi, stridor Cardiovascular Exam: Present: regular rate, normal rhythm, normal heart sounds. Absent: systolic murmur, diastolic murmur, rubs, gallop, clicks <Baltazar Evans - Last Filed: 11/11/20 13:14> <Lillie Linder - Last Filed: 11/11/20 17:10> - General Exam Comments Initial Comments: General: The patient is awake and alert, in no distress, and does not appear acutely ill. Eye: Pupils are equal, round and reactive to light, extra-ocular movements are intact. No nystagmus. There is normal conjunctiva bilaterally. No signs of icterus. Ears, nose, mouth and throat: There are moist mucous membranes and no oral lesions. Neck: The neck is supple, there is no tenderness or JVD. Cardiovascular: There is a regular rate and rhythm. No murmur, rub or gallop is appreciated. Respiratory: Lungs are clear to auscultation, respirations are non-labored, breath sounds are equal. No wheezes, stridor, rales, or rhonchi. Gastrointestinal: Soft, non-distended, non-tender abdomen without masses or organomegaly noted. There is no rebound or guarding present. No pulsatile masses Musculoskeletal: Normal ROM, no tenderness. Strength 5/5. Sensation intact. Radial and Dp pulses equal bilaterally 2+. Neurological: A&O x 3. CN II-XII intact, There are no obvious motor or sensory deficits. Coordination appears grossly intact. Speech is normal. Skin: Skin is warm and dry and no rashes or lesions are noted. No LE edema or calf pain, Psychiatric: Cooperative, appropriate mood & affect, normal judgment. (Lillie Linder) Course <Lillie Linder - Last Filed: 11/11/20 17:10> Vital Signs 11/11/20 11/11/20 11/11/20 13:12 14:46 15:31 Temperature 98.4 F Pulse Rate 79 73 69 Respiratory 20 18 18 Rate Blood Pressure 168/108 157/97 149/80 O2 Sat by Pulse 97 97 98 Oximetry - Reevaluation(s) Reevaluation #1: daughter bedside states patient never had a heart attack, she has past chest pain with clean cath. 11/11/20 15:24 (Lillie Linder) EKG Findings - EKG Comments: EKG Findings:: Ventricular rate 77 bpm, IN interval 140 ms with QRS duration 90 ms the QT/QTC 408/461. This is normal sinus with a partial right bundle branch block which is evident no ST elevation or depression. nonspecific T-wave changes. <Lillie Linder - Last Filed: 11/11/20 17:10> Medical Decision Making - Lab Data Result diagrams: 11/11/20 13:30 11/11/20 13:30 <Lillie Linder - Last Filed: 11/11/20 17:10> - Medical Decision Making Labs stable. overall asymptomatic beside "brain fog" no severe headaches, stroke like symptoms. no chest pain or dyspnea. no extremity findings. or urinary changes. no pulsatile masses and pulses are WNL. CXR clear. troponin (-). pt will be discharged with pcp f/u, home monitoring of BP. Dr Brand agreeable to care plan. (Lillie Linder) - Lab Data Lab Results 11/11/20 11/11/20 11/11/20 Range/Units 13:30 13:30 13:30 WBC 8.2 (3.8-10.6) k/uL RBC 5.05 (3.80-5.40) m/uL Hgb 14.9 (11.4-16.0) gm/dL Hct 43.8 (34.0-46.0) % MCV 86.8 (80.0-100.0) fL MCH 29.4 (25.0-35.0) pg MCHC 33.9 (31.0-37.0) g/dL RDW 14.3 (11.5-15.5) % Plt Count 231 (150-450) k/uL MPV 9.0 Neutrophils % 68 % Lymphocytes % 22 % Monocytes % 6 % Eosinophils % 2 % Basophils % 1 % Neutrophils # 5.5 (1.3-7.7) k/uL Lymphocytes # 1.8 (1.0-4.8) k/uL Monocytes # 0.5 (0-1.0) k/uL Eosinophils # 0.2 (0-0.7) k/uL Basophils # 0.1 (0-0.2) k/uL Sodium 140 (137-145) mmol/L Potassium 4.8 (3.5-5.1) mmol/L Chloride 106 (98-107) mmol/L Carbon Dioxide 26 (22-30) mmol/L Anion Gap 8 mmol/L BUN 23 H (7-17) mg/dL Creatinine 1.03 (0.52-1.04) mg/dL Est GFR (CKD-EPI)AfAm 63 (>60 ml/min/1.73 sqM) Est GFR (CKD-EPI)NonAf 55 (>60 ml/min/1.73 sqM) Glucose 93 (74-99) mg/dL Calcium 9.6 (8.4-10.2) mg/dL Magnesium 2.2 (1.6-2.3) mg/dL Total Bilirubin 0.6 (0.2-1.3) mg/dL AST 24 (14-36) U/L ALT 19 (4-34) U/L Alkaline Phosphatase 95 (38-126) U/L Troponin I <0.012 (0.000-0.034) ng/mL Total Protein 7.0 (6.3-8.2) g/dL Albumin 4.3 (3.5-5.0) g/dL Disposition <Baltazar Evans - Last Filed: 11/11/20 13:14> Is patient prescribed a controlled substance at d/c from ED?: No Time of Disposition: 15:25 <Lillie Linder - Last Filed: 11/11/20 17:10> Clinical Impression: Elevated blood pressure reading Disposition: HOME SELF-CARE Condition: Good Instructions (If sedation given, give patient instructions): Heart Healthy Diet (ED), Hypertension (ED) Additional Instructions: Please use medication as discussed. Please follow-up with family doctor in the next 2 days. Keep blood pressure log at home as discussed :) Please return to emergency room if the symptoms increase or worsen or for any other concerns. Referrals: Chintan Fritz MD [Primary Care Provider] - 1-2 days
[2020-11-11 13:53] LABS: Basophils # (A) 0.1 k/uL (0-0.2); Basophils % (A) 1 %; Eosinophils # (A) 0.2 k/uL (0-0.7); Eosinophils % (A) 2 %; HCT 43.8 % (34.0-46.0); HGB 14.9 gm/dL (11.4-16.0); Lymphocytes # (A) 1.8 k/uL (1.0-4.8); Lymphocytes % (A) 22 %; MCH 29.4 pg (25.0-35.0); MCHC 33.9 g/dL (31.0-37.0); MCV 86.8 fL (80.0-100.0); Monocytes # (A) 0.5 k/uL (0-1.0); Monocytes % (A) 6 %; Neutrophils # (A) 5.5 k/uL (1.3-7.7); Neutrophils % (A) 68 %; Platelet Count 231 k/uL (150-450); RBC 5.05 m/uL (3.80-5.40); RDW 14.3 % (11.5-15.5); WBC 8.2 k/uL (3.8-10.6)
[2020-11-11 14:04] LABS: Albumin 4.3 g/dL (3.5-5.0); Calcium 9.6 mg/dL (8.4-10.2); Magnesium 2.2 mg/dL (1.6-2.3); Potassium 4.8 mmol/L (3.5-5.1); Total Bilirubin 0.6 mg/dL (0.2-1.3)
[2020-11-11] MEDS ORDERED: hydrALAZINE HCL 20 MG/ML 1 ML VIAL IVP STA (14:28)
[2020-11-11 14:48] VITALS: RESP 18
[2020-11-11 15:33] VITALS: BP 149/80; PULSE 69
--- NOTE | 2020-11-11 15:57 | XR ---
EXAMINATION TYPE: XR chest 2V DATE OF EXAM: 11/11/2020 COMPARISON: 05/08/2020 HISTORY: 70 year-old female elevated blood pressure, hypertension TECHNIQUE: PA and lateral views FINDINGS: Heart normal size. Aorta and pulmonary vasculature within normal limits. Some strandy atelectasis of the right midlung. Prominent epicardial fat pad at the cardiac apex. Moderate to large sized hiatal h ernia noted. IMPRESSION: Some strandy atelectasis. No acute cardiopulmonary process. Moderate to large sized hiatal hernia not ed.
== END 2020-11-11 15:37 | disposition home or self-care (01) ==
LOC: EC 12:36
DX: I10 Essential (primary) hypertension (principal); I25.2 Old myocardial infarction; Z79.82 Long term (current) use of aspirin
CPT/HCPCS: 36415; 71046; 80053; 83735; 84484; 85025; 93005; 99284

== ENCOUNTER 2020-12-27 12:12 | Inpatient (IN) | payer MEDICARE ==
[2020-12-27] MEDS ORDERED: ASPIRIN 81 MG PO STA (12:39)
[2020-12-27] MEDS ORDERED: NITROGLYCERIN OINT 1 INCH/GM PACKET TOPICAL STA (12:39)
--- NOTE | 2020-12-27 12:42 | ED ---
General Adult HPI - General Chief complaint: Chest Pain Stated complaint: Chest Pain Time Seen by Provider: 12/27/20 12:15 Source: patient, EMS, RN notes reviewed, old records reviewed Mode of arrival: EMS Limitations: no limitations - History of Present Illness Initial comments: This is a 70-year-old female presents emergency Department with a past medical history significant for a heart attack last April as well as high blood pressure. Patient states today after mowing her small lawn she started having chest pain that radiated to her jaw she became very short of breath. Patient states she had already taken a full aspirin today and she took one nitroglycerin. Patient states it made her nauseated but didn't seem to take away the pain. Patient got Zofran in the ambulance on the way here for the nausea. Patient denies any recent fever chills or cough per patient denies any abdominal pain patient denies any vomiting diarrhea. Patient denies any pain with deep breathing. Patient states currently she has no chest pain at all - Related Data Home Medications Medication Instructions Recorded Confirmed Cholecalciferol [Vitamin D3 (25 1,000 unit PO DAILY 05/08/20 05/08/20 Mcg = 1000 Iu)] Losartan [Cozaar] 25 mg PO BID 05/08/20 05/08/20 Metoprolol Succinate (ER) [Toprol 50 mg PO HS 05/08/20 05/08/20 XL] Previous Rx's Medication Instructions Recorded Aspirin 81 mg PO DAILY #30 chew 04/22/20 Atorvastatin [Lipitor] 40 mg PO HS #30 tab 04/22/20 Nitroglycerin Sl Tabs [Nitrostat] 0.4 mg SUBLINGUAL Q5M PRN #25 tab 04/22/20 Allergies Allergy/AdvReac Type Severity Reaction Status Date / Time No Known Allergies Allergy Verified 11/11/20 13:15 Review of Systems ROS Statement: Those systems with pertinent positive or pertinent negative responses have been documented in the HPI. ROS Other: All systems not noted in ROS Statement are negative. Past Medical History Past Medical History: Hypertension, Myocardial Infarction (NM) History of Any Multi-Drug Resistant Organisms: None Reported Past Surgical History: Heart Catheterization Past Psychological History: No Psychological Hx Reported Smoking Status: Former smoker Past Alcohol Use History: Occasional Past Drug Use History: None Reported - Past Family History Mother Family Medical History: Unable to Obtain General Exam - General Exam Comments Initial Comments: GENERAL: Patient is well-developed and well-nourished. Patient is nontoxic and well- hydrated and is in mild distress. ENT: Neck is soft and supple. No significant lymphadenopathy is noted. Oropharynx is clear. Moist mucous membranes. Neck has full range of motion without eliciting any pain. EYES: The sclera were anicteric and conjunctiva were pink and moist. Extraocular movements were intact and pupils were equal round and reactive to light. Eyelids were unremarkable. PULMONARY: Unlabored respirations. Good breath sounds bilaterally. No audible rales rhonchi or wheezing was noted. CARDIOVASCULAR: There is a regular rate and rhythm without any murmurs gallops or rubs. ABDOMEN: Soft and nontender with normal bowel sounds. SKIN: Skin is clear with no lesions or rashes and otherwise unremarkable. NEUROLOGIC: Patient is alert and oriented x3. Cranial nerves II through XII are grossly intact. Motor and sensory are also intact. Normal speech, volume and content. Symmetrical smile. MUSCULOSKELETAL: Normal extremities with adequate strength and full range of motion. No lower extremity swelling or edema. No calf tenderness. LYMPHATICS: No significant lymphadenopathy is noted PSYCHIATRIC: Normal psychiatric evaluation. Limitations: no limitations Course Vital Signs 12/27/20 12/27/20 12/27/20 12:15 12:30 13:00 Temperature 98.0 F Pulse Rate 93 94 91 Respiratory 18 20 18 Rate Blood Pressure 112/83 115/79 116/73 O2 Sat by Pulse 96 94 L 94 L Oximetry 12/27/20 13:30 Temperature Pulse Rate 88 Respiratory 19 Rate Blood Pressure 121/78 O2 Sat by Pulse 94 L Oximetry Medical Decision Making - Medical Decision Making EKG shows normal sinus rhythm at 89 bpm [place] interval is 142 QRS is 94 QT interval 386 QTC is 469. Patient's EKG shows no ST segment elevation or depression. Chest x-ray shows no acute abnormality. I started the patient on heparin. Patient remained chest pain-free in the emergency department. Patient was diagnosed unstable angina. I spoke with [facility] and he agreed with the patient admitted the patient I wrote admitting orders I continued heparin Nitropaste for and I consult cardiology. - Lab Data Result diagrams: 12/27/20 12:50 12/27/20 12:50 Lab Results 12/27/20 12/27/20 12/27/20 Range/Units 12:50 12:50 12:50 WBC 7.3 (3.8-10.6) k/uL RBC 4.89 (3.80-5.40) m/uL Hgb 14.1 (11.4-16.0) gm/dL Hct 42.7 (34.0-46.0) % MCV 87.4 (80.0-100.0) fL MCH 28.9 (25.0-35.0) pg MCHC 33.1 (31.0-37.0) g/dL RDW 14.5 (11.5-15.5) % Plt Count 199 (150-450) k/uL MPV 9.0 Neutrophils % 63 % Lymphocytes % 26 % Monocytes % 7 % Eosinophils % 2 % Basophils % 0 % Neutrophils # 4.6 (1.3-7.7) k/uL Lymphocytes # 1.9 (1.0-4.8) k/uL Monocytes # 0.5 (0-1.0) k/uL Eosinophils # 0.2 (0-0.7) k/uL Basophils # 0.0 (0-0.2) k/uL Sodium 137 (137-145) mmol/L Potassium 4.2 (3.5-5.1) mmol/L Chloride 106 (98-107) mmol/L Carbon Dioxide 22 (22-30) mmol/L Anion Gap 9 mmol/L BUN 19 H (7-17) mg/dL Creatinine 1.03 (0.52-1.04) mg/dL Est GFR (CKD-EPI)AfAm 63 (>60 ml/min/1.73 sqM) Est GFR (CKD-EPI)NonAf 55 (>60 ml/min/1.73 sqM) Glucose 92 (74-99) mg/dL Calcium 9.2 (8.4-10.2) mg/dL Magnesium 2.0 (1.6-2.3) mg/dL Total Bilirubin 0.6 (0.2-1.3) mg/dL AST 28 (14-36) U/L ALT 18 (4-34) U/L Alkaline Phosphatase 90 (38-126) U/L Troponin I <0.012 (0.000-0.034) ng/mL Total Protein 6.4 (6.3-8.2) g/dL Albumin 3.9 (3.5-5.0) g/dL Critical Care Time Critical Care Time: Yes Total Critical Care Time: 35 Disposition Clinical Impression: Unstable angina pectoris Disposition: ADMITTED IP TO THIS HOSP Referrals: Chintan Fritz MD [Primary Care Provider] - 1-2 days Time of Disposition: 14:21
[2020-12-27 13:15] LABS: Basophils % (A) 0 %; Eosinophils # (A) 0.2 k/uL (0-0.7); Eosinophils % (A) 2 %; HCT 42.7 % (34.0-46.0); HGB 14.1 gm/dL (11.4-16.0); Lymphocytes # (A) 1.9 k/uL (1.0-4.8); Lymphocytes % (A) 26 %; MCH 28.9 pg (25.0-35.0); MCHC 33.1 g/dL (31.0-37.0); MCV 87.4 fL (80.0-100.0); Monocytes # (A) 0.5 k/uL (0-1.0); Monocytes % (A) 7 %; Neutrophils # (A) 4.6 k/uL (1.3-7.7); Neutrophils % (A) 63 %; Platelet Count 199 k/uL (150-450); RBC 4.89 m/uL (3.80-5.40); RDW 14.5 % (11.5-15.5); WBC 7.3 k/uL (3.8-10.6)
[2020-12-27 13:25] LABS: Albumin 3.9 g/dL (3.5-5.0); Calcium 9.2 mg/dL (8.4-10.2); Potassium 4.2 mmol/L (3.5-5.1); Total Bilirubin 0.6 mg/dL (0.2-1.3); Total Protein 6.4 g/dL (6.3-8.2)
--- NOTE | 2020-12-27 13:53 | XR ---
EXAMINATION TYPE: XR chest 2V DATE OF EXAM: 12/27/2020 COMPARISON: NONE HISTORY: 70 year-old chest pain TECHNIQUE: PA and lateral views FINDINGS: Mild cardiomegaly. Atherosclerotic aorta. Mild bibasilar strandy air space opacities atelectasis or p neumonitis. No pneumothorax or pleural effusion. Large hiatal hernia. IMPRESSION: Mild strandy bibasilar airspace opacities suggestive of atelectasis or pneumonitis. 2. Mild cardiomegaly and atherosclerotic aorta. 3. Large hiatal hernia.
[2020-12-27] MEDS ORDERED: HEPARIN SODIUM 1,000 UN/ML (10ML VL) IV STA (14:15)
[2020-12-27] MEDS ORDERED: HEPARIN SOD,PORK IN 0.45% NACL 25,000 UNIT in 0.45% NACL 1 250ML.BAG IV SCH (14:15)
[2020-12-27] MEDS ORDERED: NITROGLYCERIN SL TABS 0.4 MG TAB SUBLINGUAL PRN (14:21)
[2020-12-27 14:25] LABS: INR 0.9 (<1.2); Prothrombin Time 9.6 sec (9.0-12.0)
[2020-12-27 14:30] LABS: Partial Thromboplastin Time 20.1 sec (22.0-30.0)
--- NOTE | 2020-12-27 17:44 | P.HPIM ---
<Curtis Lopes - Last Filed: 12/27/20 17:27> History of Present Illness H&P Date: 12/27/20 History of Presenting Illness: Patient is a 70-year-old female with a past medical history of CAD with previous MT and hypertension. She presented to the emergency department with a chief complaint of chest pain radiating up into her jaw. Patient reports she was out cutting her grass and having a typical normal day. Patient reports when she was finished she went inside got a glass of water and sat down on the couch. Patient reports it is when she sat down that she began to feel very lightheaded accompanied by shortness of breath and mild chest pain/tightness that radiated up into her neck and jaw. Patient reports this is the exact same way she felt when she had her previous heart attack back in April 2020. Patient reports she took one sublingual nitroglycerin and called EMS for transport to hospital. She was seen and fully evaluated in the emergency department. A chest x-ray was obtained revealing mild strandy bibasilar airspace opacities suggestive of atelectasis versus pneumonitis, a large hiatal hernia and mild cardiomegaly with atherosclerotic aorta. An EKG was completed revealing normal sinus rhythm at 89 bpm showing no noted signs of T-wave abnormalities, ST elevation or depression revealing no signs of acute ischemia. Initial troponin < 0.012 with repeat troponin elevating to 0.035. Patient was given aspirin 324 mg by mouth 1 dose along with heparin bolus followed by infusion. Patient admitted under our services for NSTEMI and cardiology has been consulted. Patient denies having any headache, changes in her vision or hearing, tinnitus, palpitations, abdominal pain, nausea, vomiting, or experiencing any numbness/tingling/weakness/swelling in her extremities. Review of systems: Pertinent positives and negatives as discussed in HPI, a complete review of systems was performed and all other systems are negative. Patient reports awakening today feeling great states that she was outside cutting the grass Physical exam: General: non toxic, no distress, appears at stated age Derm: warm, dry Head: atraumatic, normocephalic, symmetric Eyes: EOMI, no lid lag, anicteric sclera Mouth: no lip lesion, mucus membranes moist Cardiovascular: S1-S2 normal with regular rate and rhythm. No murmurs, gallops, or rubs noted. Posterior tibial pulses palpated bilaterally. Cap refill less than 2 seconds. Lungs: Respirations even, regular, and unlabored on room air. Lungs clear to auscultation bilaterally with no wheezes, rhonchi, or rales noted. No accessory muscle usage. Abdominal: soft, nontender to palpation, no guarding, no appreciable organomegaly Ext: no gross muscle atrophy, no edema, no contractures Neuro: GCS 15. Speech clear. CN II-XI grossly intact, no focal neuro deficits Psych: Alert, oriented, appropriate affect Assessment and Plan of Care: NSTEMI -EKG was completed revealing normal sinus rhythm at 89 bpm showing no noted signs of T-wave abnormalities, ST elevation or depression revealing no signs of acute ischemia. -Initial troponin < 0.012 with repeat troponin elevating to 0.035, will trend -Cardiology consult -Telemetry monitoring -Cardiac diet, nothing by mouth at midnight for possible cardiac cath -Continue heparin, pharmacy to dose. -Aspirin, atorvastatin, and metoprolol -Continuation of daily medications including: Losartan and PRN sublingual nitro glycerin -Lipid profile with a.m. labs. -Echocardiogram Hypertension Monitor vital signs and continue daily medication management.- The patient is admitted with an anticipated greater than 2 midnight stay for evaluation of NSTEMI. CODE STATUS: Full code DVT prophylaxis: Heparin Discussed with: Patient and RN Anticipated discharge date: Clinical course to determine Anticipated discharge place: Home A total of 45 minutes was spent on the care of this complex patient more than 50% of the time was spent in counseling and care coordination. Past Medical History Past Medical History: Hypertension, Myocardial Infarction (MT) History of Any Multi-Drug Resistant Organisms: None Reported Past Surgical History: Heart Catheterization Past Psychological History: No Psychological Hx Reported Smoking Status: Former smoker Past Alcohol Use History: Occasional Past Drug Use History: None Reported - Past Family History Mother Family Medical History: Unable to Obtain Medications and Allergies Home Medications Medication Instructions Recorded Confirmed Type Cholecalciferol [Vitamin D3 (25 25 mcg PO DAILY 05/08/20 12/27/20 History Mcg = 1000 Iu)] Metoprolol Succinate (ER) [Toprol 50 mg PO DAILY 05/08/20 12/27/20 History XL] Losartan [Cozaar] 50 mg PO DAILY 12/27/20 12/27/20 History Nitroglycerin Sl Tabs [Nitrostat] 0.4 mg SL Q5M PRN 05/25/21 05/25/21 History Allergies Allergy/AdvReac Type Severity Reaction Status Date / Time No Known Allergies Allergy Verified 12/27/20 14:19 Physical Exam Vitals: Vital Signs Temp Pulse Resp BP Pulse Ox 12/27/20 14:51 83 18 121/90 96 12/27/20 13:30 88 19 121/78 94 L 12/27/20 13:00 91 18 116/73 94 L 12/27/20 12:30 94 20 115/79 94 L 12/27/20 12:15 98.0 F 93 18 112/83 96 Intake and Output 12/27/20 12/27/20 12/27/20 06:59 14:59 22:59 Other: Weight 86.183 kg Results CBC & Chem 7: 12/27/20 12:50 12/27/20 12:50 Labs: Abnormal Lab Results - Last 24 Hours (Table) 12/27/20 12/27/20 Range/Units 12:50 14:00 APTT 20.1 L (22.0-30.0) sec BUN 19 H (7-17) mg/dL <Dania Willard - Last Filed: 12/27/20 18:50> Physical Exam Osteopathic Statement: *. No significant issues noted on an osteopathic structural exam other than those noted in the History and Physical/Consult. Vitals: Vital Signs Temp Pulse Resp BP Pulse Ox 12/27/20 18:19 75 16 122/73 96 12/27/20 17:00 84 16 124/75 96 12/27/20 16:00 84 7 L 127/83 93 L 12/27/20 15:30 77 15 95 12/27/20 15:00 75 13 95 12/27/20 14:51 83 18 121/90 96 12/27/20 13:30 88 19 121/78 94 L 12/27/20 13:00 91 18 116/73 94 L 12/27/20 12:30 94 20 115/79 94 L 12/27/20 12:15 98.0 F 93 18 112/83 96 Intake and Output 12/27/20 12/27/20 12/27/20 06:59 14:59 22:59 Other: Weight 86.183 kg Results CBC & Chem 7: 12/27/20 12:50 12/27/20 12:50 Labs: Abnormal Lab Results - Last 24 Hours (Table) 12/27/20 12/27/20 12/27/20 Range/Units 12:50 14:00 15:55 APTT 20.1 L (22.0-30.0) sec BUN 19 H (7-17) mg/dL Troponin I 0.035 H* (0.000-0.034) ng/mL Assessment and Plan Assessment: Patient seen and evaluated by me independently. Patient was also seen by ALEX, the original author of this note. I am in agreement with the subjective, physical exam, and assessment and plan as documented with the addition/changes of my exam and assessment below. Gen: awake, alert HEENT: normocephalic, atraumatic, good hearing acuity, moist mucous membranes Resp: good air exchange, breathing comfortably with no accessory muscle use CVS: good distal perfusion x 4, GI: soft, NTTP, ND : no SPT, no CVAT, corrales catheter not present MSK: no pitting edema, no clubbing Neuro: non-focal, moving all extremities Psych: cooperative, euthymic mood Plan: Cardiology consult Trend troponins Heparin drip Aspirin, statin Nitro when necessary Patient has non-STEMI, likely will require left heart cath
[2020-12-27] MEDS: NITROGLYCERIN OINT 1 INCH/GM PACKET TOPICAL SCH ×2 (18:19→23:36)
[2020-12-27] MEDS: ATORVASTATIN 40 MG TAB PO SCH (20:47)
[2020-12-28] MEDS: NITROGLYCERIN OINT 1 INCH/GM PACKET TOPICAL SCH ×3 (06:03→17:14)
[2020-12-28 07:29] LABS: HCT 35.9 % (34.0-46.0); HGB 12.3 gm/dL (11.4-16.0); MCH 29.8 pg (25.0-35.0); MCHC 34.2 g/dL (31.0-37.0); Mean Platelet Volume 8.4; Platelet Count 172 k/uL (150-450); RBC 4.13 m/uL (3.80-5.40); RDW 14.5 % (11.5-15.5); WBC 7.4 k/uL (3.8-10.6)
[2020-12-28] MEDS ORDERED: ACETAMINOPHEN TAB 325 MG TAB PO PRN (07:37)
[2020-12-28] MEDS: CHOLECALCIFEROL 25 MCG (1000 IU) TABLET PO SCH (07:49)
[2020-12-28] MEDS: LOSARTAN 50 MG TAB PO SCH (07:50)
[2020-12-28] MEDS: METOPROLOL SUCCINATE (ER) 50 MG TAB.ER.24H PO SCH (07:50)
[2020-12-28 08:09] LABS: Calcium 8.6 mg/dL (8.4-10.2); Potassium 4.3 mmol/L (3.5-5.1)
[2020-12-28] MEDS ORDERED: ASPIRIN 325 MG TAB PO SCH (09:00)
--- NOTE | 2020-12-28 11:01 | ECHOF ---
Referral Reason:NSTEMI MEASUREMENTS -------- HEIGHT: 162.6 cm WEIGHT: 88.5 kg BP: 119/64 IVSd: 1.2 cm (0.6 - 1.1) LVIDd: 4.2 cm (3.9 - 5.3) LVPWd: 1.3 cm (0.6 - 1.1) EDV(Teich): 80 ml IVSs: 1.4 cm LVIDs: 3.5 cm LVPWs: 0.9 cm %IVS Thck: 24 % ESV(Teich): 51 ml EF(Teich): 37 % %FS: 18 % SV(Teich): 30 ml RVIDd: 3.2 cm (< 3.3) LALs A4C: 5.0 cm LAAs A4C: 14.4 cm LAESV A-L A4C: 35 ml LAESV MOD A4C: 33 ml LALs A2C: 5.0 cm LAAs A2C: 17.6 cm LAESV A-L A2C: 52 ml LAESV MOD A2C: 50 ml LAESV(A-L): 43 ml LAESV Index (A-L): 22.12 ml/m Ao Diam: 3.3 cm (2.0 - 3.7) AV Cusp: 1.6 cm (1.5 - 2.6) EPSS: 0.4 cm MV E Dejan: 0.52 m/s MV DecT: 226 ms MV Dec [place]: 2.3 m/s MV A Dejan: 0.55 m/s MV E/A Ratio: 0.93 MV PHT: 65 ms TR Vmax: 1.66 m/s TR maxP.07 mmHg RAP: 5.00 mmHg RVSP: 16.07 mmHg MV EF SLOPE: 109.08 mm/s (70 - 150) MV EXCURSION: 17.70 mm (> 18.000) FINDINGS -------- Sinus rhythm. This was a technically good study. LV size, wall thickness and systolic function are normal, with an EF greater than 55%. The left romy tricular size is normal. The right ventricle is normal in size. Normal LA size by volume 22+/-6 ml/m2. The right atrial size is normal. The aortic valve is trileaflet, and appears structurally normal. No aortic stenosis or regurgitation. Mild mitral regurgitation is present. Mild tricuspid regurgitation present. Right ventricular systolic pressure is normal at < 35 mmHg. There is no pulmonic regurgitation present. There is no pericardial effusion. CONCLUSIONS -------- 1. LV size, wall thickness and systolic function are normal, with an EF greater than 55%. 2. The left ventricular size is normal. 3. The right ventricle is normal in size. 4. Normal LA size by volume 22+/-6 ml/m2. 5. The right atrial size is normal. 6. The aortic valve is trileaflet, and appears structurally normal. No aortic stenosis or regurgitati on. 7. Mild mitral regurgitation is present. 8. Mild tricuspid regurgitation present. 9. Right ventricular systolic pressure is normal at < 35 mmHg. 10. There is no pericardial effusion. FERMENTER CHAMPAGNE: Trupti Barnhart RDCS
[2020-12-28 12:09] LABS: Chol/HDL Ratio 3.16; LDL Cholesterol,Calculated 72.8 mg/dL (0.0-131.0); VLDL Calculation 20.2 mg/dL (5.00-40.00)
--- NOTE | 2020-12-28 13:11 | P.PN ---
Subjective Progress Note Date: 12/28/20 Patient is doing fairly well today. She denies any chest pain. No acute events overnight reported by nursing staff. Objective - Vital Signs Vital signs: Vital Signs Temp 97.4 F L 12/28/20 12:00 Pulse 76 12/28/20 12:00 Resp 18 12/28/20 12:00 BP 111/67 12/28/20 12:00 Pulse Ox 96 12/28/20 12:00 Intake & Output 12/27/20 12/28/20 12/28/20 18:59 06:59 18:59 Intake Total 73.645 420 Balance 73.645 420 Weight 86.183 kg 88.6 kg Intake: Intake, IV Titration 73.645 Amount Heparin Sod,Pork in 0.45% 73.645 NaCl 25,000 unit In 0.45 % NaCl 1 250ml.bag @ 11.6 UNITS/KG/HR 9.997 mls/hr IV .Q24H ANETTE Rx#: [id number] Oral 420 Other: Voiding Method Toilet # Voids 1 - Exam General: The patient is awake and alert, in no distress Eye: there is normal conjunctiva bilaterally. Neck: The neck is supple, there is no JVD. Cardiovascular: Normal S1-S2, no S3-S4, no murmurs. Respiratory: Lungs clear to auscultation bilaterally Gastrointestinal: Abdomen is soft, nontender Musculoskeletal: There is no pedal edema. Neurological:. Speech is normal. Skin: Skin is warm and dry - Labs CBC & Chem 7: 12/28/20 06:56 12/28/20 06:56 Labs: Abnormal Lab Results - Last 24 Hours (Table) 12/27/20 12/27/20 12/27/20 Range/Units 12:50 14:00 15:55 APTT 20.1 L (22.0-30.0) sec Chloride (98-107) mmol/L BUN 19 H (7-17) mg/dL Glucose (74-99) mg/dL Troponin I 0.035 H* (0.000-0.034) ng/mL 12/27/20 12/27/20 12/28/20 Range/Units 19:30 20:44 06:56 APTT 64.5 H (22.0-30.0) sec Chloride 110 H (98-107) mmol/L BUN 19 H (7-17) mg/dL Glucose 103 H (74-99) mg/dL Troponin I 0.036 H* (0.000-0.034) ng/mL 12/28/20 Range/Units 06:56 APTT 64.3 H (22.0-30.0) sec Chloride (98-107) mmol/L BUN (7-17) mg/dL Glucose (74-99) mg/dL Troponin I (0.000-0.034) ng/mL Assessment and Plan Assessment: Patient is a 70-year-old female with a past medical history of CAD with previous DE and hypertension. She presented to the emergency department with a chief complaint of chest pain radiating up into her jaw. She was fully evaluated in the emergency department. A chest x-ray was obtained revealing mild strandy bibasilar airspace opacities suggestive of atelectasis versus pneumonitis, a large hiatal hernia and mild cardiomegaly with atherosclerotic aorta. An EKG was completed revealing normal sinus rhythm at 89 bpm showing no noted signs of T-wave abnormalities, ST elevation or depression revealing no signs of acute ischemia. Initial troponin < 0.012 with repeat troponin elevating to 0.035. Patient was given aspirin 324 mg by mouth 1 dose along with heparin bolus followed by infusion. Patient admitted under our services for NSTEMI and cardiology has been consulted. Assessment and Plan of Care: NSTEMI -Continue optimal medical management, IV heparin, awaiting cardiology recommendations. -Echocardiogram showed preserved ejection fraction of 55% and no significant wall motion abnormalities Hyperlipidemia -Cholesterol level within acceptable range. Total cholesterol 136, LDL 72 Hypertension -Continue home regimen
--- NOTE | 2020-12-28 13:21 | P.CRDCN ---
History of Present Illness History of present illness: HISTORY OF PRESENTING ILLNESS This is a pleasant 70-year-old female past medical history significant for hypertension. She follows in the office with Dr. Arechiga. We have been asked to see in consultation for chest pain and elevated troponins. Yesterday morning she was doing yard work and cutting her grass. She was outside doing this for approximately 2 hours and she went to sit down in her back. He one drink some water. Upon sitting down she started feeling dizzy and short of breath. She had no real chest discomfort however she states it felt like it was hard to take a breath. She sat there for a couple of minutes and then started becoming nauseated. She does have a prescription for nitroglycerin so she went in the house and took one tablet. She became scared and called EMS. On arrival to the emergency department her symptoms had subsided. She had a similar type episode occur last year April. At that time she had troponin elevation underwent cardiac catheterization revealing normal coronary arteries. Etiology for elevated troponin of undetermined. Possibly related to small vessel ischemia. However at the time she also had severely uncontrolled hypertension. The patient states instructed to limit adjustments to her medication regimen she has been feeling great and the previous 6 months up until yesterday morning. DIAGNOSTICS EKG reveals sinus mechanism, incomplete right bundle branch block and non- specific flat T-waves inferiorly. Telemetry tracings indicate sinus mechanism. Chest xray mild bibasilar opacities and large hiatal hernia. Laboratory reviewed, WBC 7.4, hemoglobin 12.3, platelets 172, sodium 139, potassium 4.3, creatinine 1.01, magnesium 2.0, initial troponin negative then 0.035 and 0.036. Current cardiac medications include losartan 50 mg daily and Toprol 50 mg daily. Most recent echocardiogram obtained April 2020 revealed preserved LV systolic function with ejection fraction 55-60%, moderate concentric LVH, grade 1 diastolic dysfunction and trace tricuspid regurgitation. REVIEW OF SYSTEMS At the time of my exam: CONSTITUTIONAL: Denies fever or chills. CARDIOVASCULAR: Denies chest pain, shortness of breath, orthopnea, PND or palpitations. RESPIRATORY: Denies cough. GASTROINTESTINAL: Denies abdominal pain, diarrhea, constipation, nausea or vomiting. MUSCULOSKELETAL: Denies myalgias. NEUROLOGIC: Denies numbness, tingling, headacbe or weakness. ENDOCRINE: Denies fatigue, weight change, polydipsia or polyurina. GENITOURINARY: Denies burning, hematuria or urgency with micturation. HEMATOLOGIC: Denies history of anemia or bleeding. PHYSICAL EXAMINATION Blood pressure 119/73 heart rate 80 afebrile and maintaining oxygen saturation on room air. CONSTITUTIONAL: No apparent distress. HEENT: Head is normocephalic. Pupils are equal, round. Sclerae anicteric. Mucous membranes of the mouth are moist. No JVD. No carotid bruit. CHEST EXAMINATION: Lungs are clear to auscultation. No chest wall tenderness is noted on palpation or with deep breathing. HEART EXAMINATION: Regular rate and rhythm. S1, S2 heard. No murmurs, gallops or rub. ABDOMEN: Soft, nontender. Positive bowel sounds. EXTREMITIES: 2+ peripheral pulses, no lower extremity edema and no calf tenderness. NEUROLOGIC EXAMINATION: Patient is awake, alert and oriented x3. ASSESSMENT Chest pain and shortness of breath Hypertension PLAN Troponin elevation not indicative of an acute coronary event. No typical rise and fall pattern. Unclear etiology. Could be related to myocardial injury with no evidence of of ischemic damage per echo and ekg. Possibly due to vasospasm or microvascular ischemia. Obtain 2-D echocardiogram and Doppler study to assess cardiac structure and function. Continue maximum medical therapy and continue to monitor for another 24 hours. Thank you kindly for this consultation. Nurse Practitioner note has been reviewed, I agree with a documented findings and plan of care. Patient was seen and examined. Past Medical History Past Medical History: Hypertension, Myocardial Infarction ([place]) Last Myocardial Infarction Date:: 04/2020 History of Any Multi-Drug Resistant Organisms: None Reported Past Surgical History: Heart Catheterization Past Anesthesia/Blood Transfusion Reactions: No Reported Reaction Past Psychological History: No Psychological Hx Reported Smoking Status: Former smoker Past Alcohol Use History: Occasional Past Drug Use History: None Reported - Past Family History Mother Family Medical History: Unable to Obtain Additional Family Medical History / Comment(s): Low blood pressure Father Family Medical History: COPD Medications and Allergies Home Medications Medication Instructions Recorded Confirmed Type Cholecalciferol [Vitamin D3 (25 25 mcg PO DAILY 05/08/20 12/27/20 History Mcg = 1000 Iu)] Metoprolol Succinate (ER) [Toprol 50 mg PO DAILY 05/08/20 12/27/20 History XL] Losartan [Cozaar] 50 mg PO DAILY 12/27/20 12/27/20 History Nitroglycerin Sl Tabs [Nitrostat] 0.4 mg SL Q5M PRN 12/27/20 12/27/20 History Allergies Allergy/AdvReac Type Severity Reaction Status Date / Time No Known Allergies Allergy Verified 12/27/20 14:19 Physical Exam Vitals: Vital Signs Temp Pulse Pulse Resp BP BP Pulse Ox 12/28/20 07:52 97.5 F L 80 18 119/73 95 12/28/20 04:00 97.4 F L 83 16 119/64 93 L 12/28/20 00:00 98.2 F 79 16 115/67 94 L 12/27/20 19:52 97.7 F 78 16 125/77 92 L 12/27/20 18:19 75 16 122/73 96 12/27/20 17:00 84 16 124/75 96 12/27/20 16:00 84 7 L 127/83 93 L 12/27/20 15:30 77 15 95 12/27/20 15:00 75 13 95 12/27/20 14:51 83 18 121/90 96 12/27/20 13:30 88 19 121/78 94 L 12/27/20 13:00 91 18 116/73 94 L 12/27/20 12:30 94 20 115/79 94 L 12/27/20 12:15 98.0 F 93 18 112/83 96 Intake and Output 12/27/20 12/28/20 12/28/20 22:59 06:59 14:59 Intake Total 73.645 Balance 73.645 Intake: Intake, IV Titration 73.645 Amount Heparin Sod,Pork in 0.45% 73.645 NaCl 25,000 unit In 0.45 % NaCl 1 250ml.bag @ 11.6 UNITS/KG/HR 9.997 mls/hr IV .Q24H [facility] Rx#: [id number] Other: Voiding Method Toilet Toilet # Voids 1 1 Weight 86.183 kg 88.6 kg Results 12/28/20 06:56 12/28/20 06:56 Cardiac Enzymes 12/27/20 12/27/20 12/27/20 Range/Units 12:50 12:50 15:55 AST 28 (14-36) U/L Troponin I <0.012 0.035 H* (0.000-0.034) ng/mL 12/27/20 Range/Units 19:30 AST (14-36) U/L Troponin I 0.036 H* (0.000-0.034) ng/mL Coagulation 12/27/20 12/27/20 12/28/20 Range/Units 14:00 20:44 06:56 PT 9.6 (9.0-12.0) sec APTT 20.1 L 64.5 H 64.3 H (22.0-30.0) sec CBC 12/27/20 12/28/20 Range/Units 12:50 06:56 WBC 7.3 7.4 (3.8-10.6) k/uL RBC 4.89 4.13 (3.80-5.40) m/uL Hgb 14.1 12.3 (11.4-16.0) gm/dL Hct 42.7 35.9 (34.0-46.0) % Plt Count 199 172 (150-450) k/uL Comprehensive Metabolic Panel 12/27/20 Range/Units 12:50 Sodium 137 (137-145) mmol/L Potassium 4.2 (3.5-5.1) mmol/L Chloride 106 (98-107) mmol/L Carbon Dioxide 22 (22-30) mmol/L BUN 19 H (7-17) mg/dL Creatinine 1.03 (0.52-1.04) mg/dL Glucose 92 (74-99) mg/dL Calcium 9.2 (8.4-10.2) mg/dL AST 28 (14-36) U/L ALT 18 (4-34) U/L Alkaline Phosphatase 90 (38-126) U/L Total Protein 6.4 (6.3-8.2) g/dL Albumin 3.9 (3.5-5.0) g/dL Current Medications Generic Name Dose Route Start Last Admin Trade Name Freq PRN Reason Stop Dose Admin Acetaminophen 650 mg 12/28/20 07:37 12/28/20 07:49 Acetaminophen Tab 325 Mg Tab PO 650 mg Q6HR PRN Administration Fever and/ or Pain Aspirin 325 mg 12/28/20 09:00 12/28/20 07:49 Aspirin 325 Mg Tab PO 325 mg DAILY ANETTE Administration Atorvastatin Calcium 40 mg 12/27/20 21:00 12/27/20 20:47 Atorvastatin 40 Mg Tab PO 40 mg HS ANETTE Administration Cholecalciferol 25 mcg 12/28/20 09:00 12/28/20 07:49 Cholecalciferol 25 Mcg (1000 Iu) Tablet PO 25 mcg DAILY ANETTE Administration Heparin Sodium/Sodium Chloride 250 mls @ 9.997 mls/hr 12/27/20 14:15 12/27/20 22:22 25,000 unit/ Sodium Chloride IV 11.6 units/kg/hr .Q24H ANETTE 9.997 mls/hr Titration Protocol 11.6 UNITS/KG/HR Losartan Potassium 50 mg 12/28/20 09:00 12/28/20 07:50 Losartan 50 Mg Tab PO 50 mg DAILY ANETTE Administration Metoprolol Succinate 50 mg 12/28/20 09:00 12/28/20 07:50 Metoprolol Succinate (Er) 50 Mg Tab.Er.24h PO 50 mg DAILY ANETTE Administration Nitroglycerin 0.4 mg 12/27/20 14:21 Nitroglycerin Sl Tabs 0.4 Mg Tab SUBLINGUAL Q5M PRN Chest Pain Nitroglycerin 1 inch 12/27/20 18:00 12/28/20 06:03 Nitroglycerin Oint 1 Inch/Gm Packet TOPICAL 1 inch Q6HR ANETTE Administration Intake and Output 12/27/20 12/28/20 12/28/20 22:59 06:59 14:59 Intake Total 73.645 Balance 73.645 Intake: Intake, IV Titration 73.645 Amount Heparin Sod,Pork in 0.45% 73.645 NaCl 25,000 unit In 0.45 % NaCl 1 250ml.bag @ 11.6 UNITS/KG/HR 9.997 mls/hr IV .Q24H [facility] Rx#: [id number] Other: Voiding Method Toilet Toilet # Voids 1 1 Weight 86.183 kg 88.6 kg 12/28/20 06:56 12/27/20 12:50
[2020-12-28] MEDS: ATORVASTATIN 40 MG TAB PO SCH (20:47)
[2020-12-29] MEDS: NITROGLYCERIN OINT 1 INCH/GM PACKET TOPICAL SCH ×3 (02:08→11:44)
[2020-12-29 08:00] VITALS: RESP 18; TEMP 97.7
[2020-12-29 08:05] VITALS: PULSE 71
[2020-12-29] MEDS: CHOLECALCIFEROL 25 MCG (1000 IU) TABLET PO SCH (08:10)
[2020-12-29] MEDS: LOSARTAN 50 MG TAB PO SCH (08:10)
[2020-12-29] MEDS: METOPROLOL SUCCINATE (ER) 50 MG TAB.ER.24H PO SCH (08:10)
[2020-12-29] MEDS ORDERED: ASPIRIN 81 MG PO SCH (09:00)
--- NOTE | 2020-12-29 09:05 | P.DS ---
Providers Date of admission: 12/28/20 23:19 Expected date of discharge: 12/29/20 Attending physician: Dania Willard MD Consults: 12/27/20 14:21 Consult Physician Urgent Consulting Provider: [facility] Consult Reason/Comments: Unstable angina Do you want consulting provider notified?: Yes Primary care physician: [facility] Course: Patient is a 70-year-old female with a past medical history noted below. She presented to the emergency department with a chief complaint of chest pain radiating up into her jaw. She was fully evaluated in the emergency department. A chest x-ray was obtained revealing mild strandy bibasilar airspace opacities suggestive of atelectasis versus pneumonitis, a large hiatal hernia and mild cardiomegaly with atherosclerotic aorta. An EKG was completed revealing normal sinus rhythm at 89 bpm showing no noted signs of T-wave abnormalities, ST elevation or depression revealing no signs of acute ischemia. Initial troponin < 0.012 with repeat troponin elevating to 0.035. Patient was given aspirin 324 mg by mouth 1 dose along with heparin bolus followed by infusion. Patient admitted under our services for NSTEMI and cardiology has been consulted. NSTEMI -Treated with medical management and IV heparin -Echocardiogram showed preserved ejection fraction of 55% and no significant wall motion abnormalities -Seen and evaluated by cardiology, thought to be less likely an acute coronary event. -Patient had a left heart catheterization in April 2020 showing normal coronary arteries Hyperlipidemia -Cholesterol level within acceptable range. Total cholesterol 136, LDL 72 -Started on Lipitor 20 mg daily Hypertension -Blood pressure not well controlled. Home dose of losartan increased to 50 mg twice daily Patient will be discharged home in a stable condition. For further details about this hospitalization please refer to the electronic chart. Time spent on discharge > 30 minutes including counseling and coordination of care Plan - Discharge Summary Discharge Rx Participant: No New Discharge Prescriptions: New Losartan [Cozaar] 50 mg PO BID #60 tab Atorvastatin Calcium [Lipitor] 20 mg PO HS #30 tab Aspirin 81 mg PO DAILY #30 chew Continue Cholecalciferol [Vitamin D3 (25 Mcg = 1000 Iu)] 25 mcg PO DAILY Metoprolol Succinate (ER) [Toprol XL] 50 mg PO DAILY Nitroglycerin Sl Tabs [Nitrostat] 0.4 mg SL Q5M PRN PRN Reason: Chest Pain Discontinued Losartan [Cozaar] 50 mg PO DAILY Discharge Medication List Cholecalciferol [Vitamin D3 (25 Mcg = 1000 Iu)] 25 mcg PO DAILY 05/08/20 [History] Metoprolol Succinate (ER) [Toprol XL] 50 mg PO DAILY 05/08/20 [History] Nitroglycerin Sl Tabs [Nitrostat] 0.4 mg SL Q5M PRN 12/27/20 [History] Aspirin 81 mg PO DAILY #30 chew 12/29/20 [Rx] Atorvastatin Calcium [Lipitor] 20 mg PO HS #30 tab 12/29/20 [Rx] Losartan [Cozaar] 50 mg PO BID #60 tab 12/29/20 [Rx] Follow up Appointment(s)/Referral(s): Chintan Fritz MD [Primary Care Provider] - 1-2 days Mason Arechiga MD [Family Provider] - 1 Week Patient Instructions/Handouts: Angina (DC) Discharge Disposition: HOME SELF-CARE
--- NOTE | 2020-12-29 09:55 | P.PN ---
Subjective Progress Note Date: 12/29/20 Principal diagnosis: abnormal cardiac enzymes this is a very pleasant 70-year-old female patient who sees Dr. Arechiga is significant for hypertension and dyslipidemia who was admitted to the hospital with chest discomfort and shortness of breath. She underwent a heart catheterization less than a year ago and that revealed normal coronaries. I did review the heart catheterization by myself and that showed no evidence of obstructive CAD but the patient does have small arteries likely related to a component of coronary vasospasm. The patient was seen this morning. She is asymptomatic. She would like to go home. I am adding oral nitrates to the current medical regimen Objective - Vital Signs Vital signs: Vital Signs Temp 97.7 F 12/29/20 07:57 Pulse 71 12/29/20 08:00 Resp 18 12/29/20 08:00 BP 163/88 12/29/20 07:57 Pulse Ox 96 12/29/20 07:57 Intake & Output 12/28/20 12/29/20 12/29/20 18:59 06:59 18:59 Intake Total 600 360 Balance 600 360 Weight 87.3 kg Intake: Oral 600 360 Other: Voiding Method Toilet # Voids 2 - Constitutional General appearance: Present: no acute distress - Respiratory Respiratory: bilateral: CTA - Cardiovascular Rhythm: regular Heart sounds: normal: S1, S2 - Labs CBC & Chem 7: 12/28/20 06:56 12/28/20 06:56 Assessment and Plan Assessment: assessment Chest discomfort which has resolved Hypertension Dyslipidemia Plan Continue the current medical regimen Add oral nitrates The patient would like to go home
[2020-12-29 10:29] VITALS: BP 158/88
[2020-12-30] MEDS ORDERED: ISOSORBIDE MONONITRATE ER 30 MG TAB.ER.24H PO SCH (09:00)
== END 2020-12-29 12:36 | disposition home or self-care (01) | DRG 282 ==
LOC: EC 12:12 → 6NMEDSUR 15:00 → 3SCARD 18:20 → OBSVTOIN 12-28 23:19
PROVIDERS: ADMIT Internal Medicine; ATTEND Internal Medicine
DX: I21.4 Non-ST elevation (NSTEMI) myocardial infarction (principal); I25.110 Atherosclerotic heart disease of native coronary artery with unstable angina pectoris; I25.111 Atherosclerotic heart disease of native coronary artery with angina pectoris with documented spasm; I25.2 Old myocardial infarction; K44.9 Diaphragmatic hernia without obstruction or gangrene; I10 Essential (primary) hypertension; I45.19 Other right bundle-branch block; E78.5 Hyperlipidemia, unspecified; Z79.899 Other long term (current) drug therapy; Z87.891 Personal history of nicotine dependence; Z79.82 Long term (current) use of aspirin; Z20.822 Contact with and (suspected) exposure to COVID-19; R11.0 Nausea
CPT/HCPCS: 36415; 71046; 80048; 80053; 80061; 83735; 84484; 85025; 85027; 85610; 85730; 87635; 93005; 93306; 99291

== ENCOUNTER 2022-06-26 05:32 | Day surgery (SDC) | payer MEDICARE ==
[2022-06-22 15:58] VITALS: BMI 33.5
[2022-06-26] MEDS ORDERED: LIDOCAINE 1% (10MG/ML) FOR IV START INTRADERMA PRN (05:44)
[2022-06-26] MEDS ORDERED: LACTATED RINGERS 1,000 ML IV SCH (05:44)
[2022-06-26 05:56] VITALS: RESP 18; TEMP 97.8
[2022-06-26] MEDS ORDERED: LACTATED RINGERS 1,000 ML IV ONE (05:56)
[2022-06-26] MEDS ORDERED: PROPOFOL 10 MG/ML 20 ML VIAL IV ONE (06:33)
[2022-06-26] MEDS ORDERED: LIDOCAINE 2% INJ 20 MG/ML (2 ML VIAL) ONE (06:33)
--- NOTE | 2022-06-26 06:58 | P.PCN ---
Date of Procedure: 06/26/22 Procedure(s) Performed: Brief history: Patient is a pleasant 69-year-old white female scheduled for an elective upper endoscopy as well as colonoscopy as a part of evaluation of Iron deficiency anemia. Patient denies any GI symptoms. She had EGD or colonoscopy. Procedure performed: Esophagogastroduodenoscopy with biopsy Colonoscopy with snare polypectomy Preoperative diagnosis: Iron deficiency anemia. Anesthesia: MAC Procedure: After informed consent was obtained from the patient was brought into the endoscopy unit and IV sedation was administered by anesthesia under continuous monitoring. Initially upper endoscopy was done. The Olympus GF 160 video endoscope was inserted inserted into the mouth and esophagus intubated without any difficulty and was gradually advanced into the stomach and duodenum and carefully examined. The bulb and second part of the duodenum appeared normal. Biopsies were done from the duodenum to rule out celiac disease. The scope was then withdrawn into the stomach adequately insufflated with air and upon careful examination the antrum had scattered erosions and biopsies were done from this area. The body, cardia and fundus appeared normal. The scope was then withdrawn into the esophagus. Moderate to large size hiatal hernia noted. The diaphragmatic impression was located at 40 cm to the incisors and there were multiple Virgil erosions at the diaphragmatic impression. The GE junction was located at 33 cm to the incisors. It appeared regular with no erythema erosions or ulcerations. Rest of the esophagus appeared normal. Patient tolerated the procedure well. At this time the patient continued to remain sedation. Initial digital rectal examination was normal. Olympus CF 160 video colonoscope was then inserted into the rectum and gradually advanced to the cecum without any difficulty. Careful examination was performed as the scope was gradually being withdrawn. The prep was excellent. The cecum, appeared normal. Ascending colon there was a 1 cm broad-based polyp removed by snare polypectomy. Rest of the ascending colon, tr ansverse colon, descending colon appeared normal. The sigmoid colon there was another 1 cm polyp removed by snare polypectomy. Diffuse diverticulosis seen. Rest of the sigmoid colon and rectum appeared normal. Retroflexion was performed in the rectum and no lesions were noted. Patient tolerated the procedure well. Impression: 1. Upper endoscopy revealed erosive antral gastritis, moderate to large hiatal hernia with Erosions 2. Colonoscopy revealed 1 cm ascending colon polyp and 1 cm sigmoid: Polyp status post polypectomy and scattered diffuse diverticulosis Recommendations: Findings of this examination were discussed with the patient as well as her family. She was advised to follow with the biopsy results. The biopsy results adenoma she can have a repeat colonoscopy in 3 years.
[2022-06-26 07:26] VITALS: BP 154/90; PULSE 68
== END 2022-06-26 07:53 | disposition home or self-care (01) ==
LOC: ORWHC2ENDO 05:32
PROVIDERS: ATTEND Internal Medicine Gastroenterology
DX: Z12.11 Encounter for screening for malignant neoplasm of colon (principal); D12.5 Benign neoplasm of sigmoid colon; K29.50 Unspecified chronic gastritis without bleeding; K31.89 Other diseases of stomach and duodenum; K44.9 Diaphragmatic hernia without obstruction or gangrene; K57.30 Diverticulosis of large intestine without perforation or abscess without bleeding; Z79.899 Other long term (current) drug therapy
CPT/HCPCS: 88305; 45385; 43239; J2704; J2001

== ENCOUNTER 2022-12-20 10:37 | Emergency (ER) | payer MEDICARE ==
[2022-12-20 10:52] VITALS: RESP 18
--- NOTE | 2022-12-20 11:38 | ED ---
General Adult HPI - General Chief complaint: Dizziness Stated complaint: Dizziness,SOB Time Seen by Provider: 12/20/22 11:03 Source: patient, EMS, RN notes reviewed Mode of arrival: EMS Limitations: no limitations - History of Present Illness Initial comments: Patient is a 72-year-old female presenting to the emergency room via EMS from her primary care provider's office for complaints of "fogginess in the head," dizziness with near fall in which she was guided to the ground without any loss of consciousness, nausea without vomiting and palpitations. She also reports hypertension at the physician's office but heart rate and blood pressure are stable upon arrival to the emergency room. She denies any palpitations or dizziness at this time but reports that her head does feel foggy still and not her head is "under water". She denies any chest pain, shortness of breath, abdominal pain, diarrhea, flank pain, headache, blurred or double vision, localized weakness, fevers or chills. She has a past medical history significant for hypertension, hyperlipidemia, sleep apnea with CPAP usage and CAD with MO. - Related Data Home Medications Medication Instructions Recorded Confirmed Metoprolol Succinate (ER) [Toprol 50 mg PO DAILY 05/08/20 12/25/22 XL] Nitroglycerin Sl Tabs [Nitrostat] 0.4 mg SL Q5M PRN 12/27/20 12/25/22 Ferrous Sulfate [Feosol] 325 mg PO DAILY 06/22/22 12/25/22 Isosorbide Mononitrate ER [Imdur] 30 mg PO DAILY 06/22/22 12/25/22 Cholecalciferol [Vitamin D3 (25 50 mcg PO DAILY 12/20/22 12/25/22 Mcg = 1000 Iu)] Atorvastatin [Lipitor] 20 mg PO HS 12/25/22 12/25/22 Previous Rx's Medication Instructions Recorded Losartan [Cozaar] 50 mg PO BID #60 tab 12/29/20 Allergies Allergy/AdvReac Type Severity Reaction Status Date / Time No Known Allergies Allergy Verified 12/25/22 13:14 Review of Systems ROS Statement: Those systems with pertinent positive or pertinent negative responses have been documented in the HPI. ROS Other: All systems not noted in ROS Statement are negative. Past Medical History Past Medical History: Hyperlipidemia, Hypertension, Myocardial Infarction (MO), Sleep Apnea/CPAP/BIPAP Additional Past Medical History / Comment(s): uses cpap Last Myocardial Infarction Date:: 04/2020 History of Any Multi-Drug Resistant Organisms: None Reported Past Surgical History: Heart Catheterization Past Anesthesia/Blood Transfusion Reactions: No Reported Reaction Additional Past Anesthesia/Blood Transfusion Reaction / Comment(s): no known of hx blood transfusion Past Psychological History: No Psychological Hx Reported Smoking Status: Former smoker Past Alcohol Use History: Occasional Past Drug Use History: None Reported - Past Family History Mother Additional Family Medical History / Comment(s): Low blood pressure Father Family Medical History: COPD General Exam - General Exam Comments Initial Comments: GENERAL: No acute distress, well developed, well nourished. HEENT: Normocephalic, atraumatic. Pupils equal, round, reactive to light. Moist mucous membranes. No nystagmus. LUNGS: No respiratory distress. Clear to auscultation, no adventitious sounds, no use of accessory muscles. HEART: Regular rate and rhythm without murmur, rub, or gallop. ABDOMEN: Normal bowel sounds. Soft, non-tender, non-distended. BACK: Normal inspection. EXTREMITIES: No edema. No tenderness. Moves all extremities. NEUROLOGIC: Alert & oriented x 3. CN II-XII grossly intact. No focal weakness. Gait steady. PSYCHIATRIC: Normal affect and behavior. DERMATOLOGIC: Skin intact, without rashes or lesions noted. Limitations: no limitations Course Vital Signs 12/20/22 12/20/22 12/20/22 10:48 11:52 12:51 Pulse Rate 92 96 75 Pulse Rate [ Left Sitting Pulse Oximetery ] Pulse Rate [ Left Standing Pulse Oximetery ] Pulse Rate [ Left Supine Pulse Oximetery ] Respiratory 18 18 18 Rate Blood Pressure 135/89 133/89 144/96 Blood Pressure [Right Arm Sitting] Blood Pressure [Right Arm Standing] Blood Pressure [Right Arm Supine] O2 Sat by Pulse 95 96 94 L Oximetry 12/20/22 12/20/22 12/20/22 13:43 13:57 14:40 Pulse Rate 71 73 Pulse Rate [ 71 Left Sitting Pulse Oximetery ] Pulse Rate [ 86 Left Standing Pulse Oximetery ] Pulse Rate [ 74 Left Supine Pulse Oximetery ] Respiratory 18 18 Rate Blood Pressure 141/80 158/92 Blood Pressure 151/91 [Right Arm Sitting] Blood Pressure 138/108 [Right Arm Standing] Blood Pressure 148/86 [Right Arm Supine] O2 Sat by Pulse 96 97 96 Oximetry Medical Decision Making - Medical Decision Making Was pt. sent in by a medical professional or institution ([facility], [employer], urgent care, hospital, or senior living...) When possible be specific @ -No Did you speak to anyone other than the patient for history (EMS, parent, family, police, friend...)? What history was obtained from this source @ -Yes, spoke to nurse to obtain history from EMS. Did you review nursing and triage notes (agree or disagree)? Why? @ -I reviewed and agree with nursing and triage notes Were old charts reviewed (outside hosp., previous admission, EMS record, old EKG, old radiological studies, urgent care reports/EKG's, senior living records)? Report findings @ -Yes, I reviewed previous EKG on file. Differential Diagnosis (chest pain, altered mental status, abdominal pain women, abdominal pain men, vaginal bleeding, weakness, fever, dyspnea, syncope, headache, dizziness, GI bleed, back pain, seizure, CVA, palpatations, mental health, musculoskeletal)? @ -Differential Dizziness: Benign paroxysmal positional Vertigo, Menieres disease, otitis media, acoustic neuroma, vertebrobasilar insufficiency, cerebellar stroke, encephalitis, hypovolemic, arrhythmia, coronary artery syndrome, anemia, this is not meant to be an all-inclusive list EKG interpreted by me (3pts min.). @ -Sinus rhythm with bundle branch block, ventricular rate 86 bpm, IN interval 106 name of, QRS duration 90 ms, QT/QTC 391/435 ms, PRT axis 24, 3, 3 X-rays interpreted by me (1pt min.). @ -Chest x-ray: No acute cardiopulmonary process. No pleural effusion, consoli dation, infiltration. Hiatal hernia noted by radiologist. CT interpreted by me (1pt min.). @ -CT of the brain without contrast: No acute intracranial process. No intracranial hemorrhage, mass or acute ischemia. U/S interpreted by me (1pt. min.). @ -None done What testing was considered but not performed or refused? (CT, X-rays, U/S, labs)? Why? @ -None What meds were considered but not given or refused? Why? @ -No Did you discuss the management of the patient with other professionals (professionals i.e. , PA, [employer], lab, RT, psych nurse, director of social media marketing, vendor management associate, teacher, disability hearing officer, skilled nursing case manager)? Give summary @ -Yes, case discussed with Dr. Sanchez for possible observation admission and monitoring regarding dizziness and persistent lightheadedness. Per admission team in the setting of other lack of associated symptoms stable labs, normal orthostatic, normal EKG and no acute abnormalities CT brain. Was smoking cessation discussed for >3mins.? @ -No Was critical care preformed (if so, how long)? @ -No Were there social determinants of health that impacted care today? How? (Homelessness, low income, unemployed, alcoholism, drug addiction, transportation, low edu. Level, literacy, decrease access to med. care, usp, rehab)? @ -No Was there de-escalation of care discussed even if they declined (Discuss DNR or withdrawal of care, Hospice)? DNR status @ -No What co-morbidities impacted this encounter? (DM, HTN, Smoking, COPD, CAD, Cancer, CVA, ARF, Chemo, Hep., AIDS, mental health diagnosis, sleep apnea, morbid obesity)? @ -None Was patient admitted / discharged? Hospital course, mention meds given and route, prescriptions, significant lab abnormalities, going to OR and other p ertinent info. @ --72 year-old female presenting to the emergency room via EMS from her primary care provider's office for complaints of "fogginess in the head," dizziness with near fall in which she was guided to the ground without any loss of consciousness, nausea without vomiting and palpitations. She also reports hypertension at the physician's office but heart rate and blood pressure are stable upon arrival to the emergency room. Will start workup for dizziness and near syncope with EKG, CT of brain, CBC, CMP, urinalysis, lactic acid, coags and chest x-ray. Chest x-ray without any acute cardiopulmonary process, hiatal hernia noted. CT of the brain without any acute intracranial process. EKG shows sinus rhythm with bundle branch block. Laboratory studies show normal CBC and coags. Sodium slightly low 136 BUN elevated at 20 with normal creatinine. 1 L fluid bolus for mild dehydration ordered remaining electrolytes and liver function and alkaline phosphate all normal. Lactic acid normal at 1.4 urinalysis with trace leukocyte esterase and trace protein no bacteria, ketones or blood. Orthostatic blood pressures negative. Chest x-ray and CT of the brain both negative. Spoke with Dr. angle lemus regarding patient presentation and workup with direction to the emergency room from primary care office for further evaluation and treatment. Recommended possible observation stay for further monitoring per hospitalist transmission worker no admission criteria or observation criteria met advised recommend discharge home with close follow-up and friend or family member to stay with patient for 24 hours. Spoke with patient regarding these recommendations and workup results. Patient is agreeable for discharge home. She states that she will contact a friend to stay with her for 24 hours. Advised slow position changes, staying well hydrated. Strict return parameters to the emergency room discussed. Questions and concerns answered. Will discharge home in stable condition with slow position changes and good oral hydration for dizziness and dehydration advising follow-up with primary care provider. Undiagnosed new problem with uncertain prognosis? @ -No Drug Therapy requiring intensive monitoring for toxicity (Heparin, Nitro, Insulin, Cardizem)? @ -No Were any procedures done? @ -No Diagnosis/symptom? @ -Dizziness Acute, or Chronic, or Acute on Chronic? @ -Acute Uncomplicated (without systemic symptoms) or Complicated (systemic symptoms)? @ -Uncomplicated Side effects of treatment? @ -No Exacerbation, Progression, or Severe Exacerbation? @ -No Poses a threat to life or bodily function? How? (Chest pain, USA, MO, pneumonia, PE, COPD, DKA, ARF, appy, cholecystitis, CVA, Diverticulitis, Homicidal, Suicidal, threat to staff... and all critical care pts) @ -No. Diagnosis/symptom? @ -Dehydration Acute, or Chronic, or Acute on Chronic? @ -Acute Uncomplicated (without systemic symptoms) or Complicated (systemic symptoms)? @ -Uncomplicated Side effects of treatment? @ -none Exacerbation, Progression, or Severe Exacerbation] @ -no Poses a threat to life or bodily function? @ -no Case discussed with Dr. Sim - Lab Data Result diagrams: 12/20/22 11:52 12/20/22 11:52 Lab Results 12/20/22 12/20/22 12/20/22 Range/Units 11:52 11:52 11:52 WBC 5.5 (3.8-10.6) k/uL RBC 4.71 (3.80-5.40) m/uL Hgb 13.8 (11.4-16.0) gm/dL Hct 41.5 (34.0-46.0) % MCV 88.1 (80.0-100.0) fL MCH 29.4 (25.0-35.0) pg MCHC 33.4 (31.0-37.0) g/dL RDW 13.6 (11.5-15.5) % Plt Count 190 (150-450) k/uL MPV 9.5 Neutrophils % 63 % Lymphocytes % 25 % Monocytes % 6 % Eosinophils % 3 % Basophils % 1 % Neutrophils # 3.5 (1.3-7.7) k/uL Lymphocytes # 1.4 (1.0-4.8) k/uL Monocytes # 0.4 (0-1.0) k/uL Eosinophils # 0.2 (0-0.7) k/uL Basophils # 0.0 (0-0.2) k/uL PT 10.7 (9.0-12.0) sec INR 1.0 (<1.2) Sodium 136 L (137-145) mmol/L Potassium 4.1 (3.5-5.1) mmol/L Chloride 103 (98-107) mmol/L Carbon Dioxide 25 (22-30) mmol/L Anion Gap 8 mmol/L BUN 20 H (7-17) mg/dL Creatinine 0.98 (0.52-1.04) mg/dL Est GFR (CKD-EPI)AfAm 66 (>60 ml/min/1.73 sqM) Est GFR (CKD-EPI)NonAf 57 (>60 ml/min/1.73 sqM) Glucose 96 (74-99) mg/dL Plasma Lactic Acid [place] (0.7-2.0) mmol/L Calcium 8.4 (8.4-10.2) mg/dL Total Bilirubin 0.8 (0.2-1.3) mg/dL AST 24 (14-36) U/L ALT 21 (4-34) U/L Alkaline Phosphatase 103 (38-126) U/L Troponin I (0.000-0.034) ng/mL Total Protein 5.9 L (6.3-8.2) g/dL Albumin 3.4 L (3.5-5.0) g/dL Urine Color Urine Appearance (Clear) Urine pH (5.0-8.0) Ur Specific [place]da (1.001-1.035) Urine Protein (Negative) Urine Glucose (UA) (Negative) Urine Ketones (Negative) Urine Blood (Negative) Urine Nitrite (Negative) Urine Bilirubin (Negative) Urine Urobilinogen (<2.0) mg/dL Ur Leukocyte Esterase (Negative) Urine RBC (0-5) /hpf Urine WBC (0-5) /hpf Ur Squamous Epith Cells (0-4) /hpf Urine Mucus (None) /hpf 12/20/22 12/20/22 12/20/22 Range/Units 11:52 12:06 12:51 WBC (3.8-10.6) k/uL RBC (3.80-5.40) m/uL Hgb (11.4-16.0) gm/dL Hct (34.0-46.0) % MCV (80.0-100.0) fL MCH (25.0-35.0) pg MCHC (31.0-37.0) g/dL RDW (11.5-15.5) % Plt Count (150-450) k/uL MPV Neutrophils % % Lymphocytes % % Monocytes % % Eosinophils % % Basophils % % Neutrophils # (1.3-7.7) k/uL Lymphocytes # (1.0-4.8) k/uL Monocytes # (0-1.0) k/uL Eosinophils # (0-0.7) k/uL Basophils # (0-0.2) k/uL PT (9.0-12.0) sec INR (<1.2) Sodium (137-145) mmol/L Potassium (3.5-5.1) mmol/L Chloride (98-107) mmol/L Carbon Dioxide (22-30) mmol/L Anion Gap mmol/L BUN (7-17) mg/dL Creatinine (0.52-1.04) mg/dL Est GFR (CKD-EPI)AfAm (>60 ml/min/1.73 sqM) Est GFR (CKD-EPI)NonAf (>60 ml/min/1.73 sqM) Glucose (74-99) mg/dL Plasma Lactic Acid [place] 1.4 (0.7-2.0) mmol/L Calcium (8.4-10.2) mg/dL Total Bilirubin (0.2-1.3) mg/dL AST (14-36) U/L ALT (4-34) U/L Alkaline Phosphatase (38-126) U/L Troponin I <0.012 (0.000-0.034) ng/mL Total Protein (6.3-8.2) g/dL Albumin (3.5-5.0) g/dL Urine Color Yellow Urine Appearance Clear (Clear) Urine pH 6.0 (5.0-8.0) Ur Specific [place] 1.018 (1.001-1.035) Urine Protein Trace H (Negative) Urine Glucose (UA) Negative (Negative) Urine Ketones Negative (Negative) Urine Blood Negative (Negative) Urine Nitrite Negative (Negative) Urine Bilirubin Negative (Negative) Urine Urobilinogen <2.0 (<2.0) mg/dL Ur Leukocyte Esterase Trace H (Negative) Urine RBC <1 (0-5) /hpf Urine WBC 3 (0-5) /hpf Ur Squamous Epith Cells 2 (0-4) /hpf Urine Mucus Occasional H (None) /hpf - Radiology Data Radiology results: report reviewed, image reviewed Disposition Clinical Impression: Dehydration, Dizziness Disposition: HOME SELF-CARE Condition: Stable Instructions (If sedation given, give patient instructions): Dizziness (ED) Additional Instructions: It is encouraged that you have someone with you over the next 24 hours in case of recurrence of presyncopal events. Stay well hydrated with water and electrolyte sports drinks. Change positions slowly. Please follow-up with your primary care provider. Please return to the Emergency Department if symptoms worsen or any other concerns. Is patient prescribed a controlled substance at d/c from ED?: No Referrals: Chintan Fritz MD [Primary Care Provider] - 1-2 days Time of Disposition: 14:25
[2022-12-20 12:13] LABS: Basophils % (A) 1 %; Eosinophils # (A) 0.2 k/uL (0-0.7); Eosinophils % (A) 3 %; HCT 41.5 % (34.0-46.0); HGB 13.8 gm/dL (11.4-16.0); Lymphocytes # (A) 1.4 k/uL (1.0-4.8); Lymphocytes % (A) 25 %; MCH 29.4 pg (25.0-35.0); MCHC 33.4 g/dL (31.0-37.0); MCV 88.1 fL (80.0-100.0); Mean Platelet Volume 9.5; Monocytes # (A) 0.4 k/uL (0-1.0); Monocytes % (A) 6 %; Neutrophils # (A) 3.5 k/uL (1.3-7.7); Neutrophils % (A) 63 %; Platelet Count 190 k/uL (150-450); RBC 4.71 m/uL (3.80-5.40); RDW 13.6 % (11.5-15.5); WBC 5.5 k/uL (3.8-10.6)
[2022-12-20 12:21] LABS: Prothrombin Time 10.7 sec (9.0-12.0)
[2022-12-20 12:22] LABS: Albumin 3.4 g/dL (3.5-5.0); Calcium 8.4 mg/dL (8.4-10.2); Potassium 4.1 mmol/L (3.5-5.1); Total Bilirubin 0.8 mg/dL (0.2-1.3); Total Protein 5.9 g/dL (6.3-8.2)
--- NOTE | 2022-12-20 12:33 | CT ---
EXAMINATION TYPE: CT brain wo con DATE OF EXAM: 12/20/2022 COMPARISON: None INDICATION: Dizziness with near syncope and hypertension DLP: 1099.8 mGycm, Automated exposure control for dose reduction was used. CONTRAST: None CT of the brain is performed utilizing 3 mm thick sections through the posterior fossa and 3 mm thick sections through the remaining calvarium. Study is performed within 24 hours of arrival to the hosp ital. No abnormal hyperdensity is present to suggest an acute intracranial hemorrhage. No mass lesion is evident. No acute infarcts are evident. Ventricles and sulci are appropriate for the patient age. There is opacification of the right maxillary sinus. Remaining paranasal sinuses and mastoid air cell s appear clear. IMPRESSIONS: 1. No acute intracranial process. Follow-up MRI can be performed as clinically indicated.
--- NOTE | 2022-12-20 12:36 | XR ---
EXAMINATION TYPE: XR chest 2V DATE OF EXAM: 12/20/2022 COMPARISON: 12/27/2020 INDICATION: Dizziness TECHNIQUE: Frontal and lateral views of the chest are obtained. FINDINGS: The heart size is normal. The pulmonary vasculature is normal. The lungs are clear. There is a moderate size hiatal hernia with an air-fluid level. No significant interval change is evident. IMPRESSION: 1. No acute pulmonary process. 2. Moderate size hiatal hernia.
[2022-12-20] MEDS ORDERED: SODIUM CHLORIDE 0.9% 1,000 ML IV STA (12:48)
[2022-12-20] MEDS ORDERED: ACETAMINOPHEN TAB 500 MG TAB PO STA (12:50)
[2022-12-20 13:40] LABS: Appearance,Urine Clear (Clear); Bilirubin,Urine Negative (Negative); Blood,Urine Negative (Negative); Color,Urine Yellow; Glucose,Urine (UA) Negative (Negative); Ketones,Urine Negative (Negative); Leukocyte Esterase,Urine Trace (Negative); Mucus,Urine Occasional /hpf; Nitrite,Urine Negative (Negative); Protein,Urine Trace (Negative); RBC,Urine <1 /hpf (0-5); Specific Gravity,Urine 1.018 (1.001-1.035); Squamous Epithelial Cell,Urine 2 /hpf (0-4); Urobilinogen,Urine <2.0 mg/dL (<2.0); WBC,Urine 3 /hpf (0-5)
[2022-12-20 14:47] VITALS: BP 158/92; PULSE 73
== END 2022-12-20 14:50 | disposition home or self-care (01) ==
LOC: EC 10:37
DX: R42 Dizziness and giddiness (principal); E86.0 Dehydration; E78.5 Hyperlipidemia, unspecified; I10 Essential (primary) hypertension; I25.2 Old myocardial infarction; Z87.891 Personal history of nicotine dependence; Z79.899 Other long term (current) drug therapy
CPT/HCPCS: 36415; 70450; 71046; 80053; 81001; 83605; 84484; 85025; 85610; 93005; 96360; 99285

== ENCOUNTER 2022-12-25 12:13 | Emergency (ER) | payer MEDICARE ==
--- NOTE | 2022-12-25 12:35 | ED ---
General Adult HPI - General Chief complaint: Arrhythmia/Palpitations Stated complaint: Increase heart rate Time Seen by Provider: 12/25/22 12:16 Source: patient, EMS, RN notes reviewed Mode of arrival: EMS Limitations: no limitations - History of Present Illness Initial comments: Patient is a pleasant 72-year-old female presenting to the emergency department with concerns with increased heart rate. Patient did have similar symptoms once a couple weeks ago. Patient onset of symptoms was around 9:30 or 10 this morning. Patient did go to the clinic for schedule appointment with her heart rate was found to be fast. EMS was called. EMS did provide adenosine and heart rate converted. Patient has been symptom-free since that time. Patient did granado ve earlier complaints of palpitations, lightheadedness, mild dyspnea and chest discomfort. Currently patient is symptom-free other than mild lightheadedness. - Related Data Home Medications Medication Instructions Recorded Confirmed Metoprolol Succinate (ER) [Toprol 50 mg PO DAILY 05/08/20 12/25/22 XL] Nitroglycerin Sl Tabs [Nitrostat] 0.4 mg SL Q5M PRN 12/27/20 12/25/22 Ferrous Sulfate [Feosol] 325 mg PO DAILY 06/22/22 12/25/22 Isosorbide Mononitrate ER [Imdur] 30 mg PO DAILY 06/22/22 12/25/22 Cholecalciferol [Vitamin D3 (25 50 mcg PO DAILY 12/20/22 12/25/22 Mcg = 1000 Iu)] Atorvastatin [Lipitor] 20 mg PO HS 12/25/22 12/25/22 Previous Rx's Medication Instructions Recorded Losartan [Cozaar] 50 mg PO BID #60 tab 12/29/20 Allergies Allergy/AdvReac Type Severity Reaction Status Date / Time No Known Allergies Allergy Verified 12/25/22 13:14 Review of Systems ROS Statement: Those systems with pertinent positive or pertinent negative responses have been documented in the HPI. ROS Other: All systems not noted in ROS Statement are negative. Constitutional: Denies: fever Eyes: Denies: eye pain ENT: Denies: ear pain Respiratory: Reports: as per HPI. Denies: cough Cardiovascular: Reports: as per HPI, palpitations Endocrine: Denies: fatigue Gastrointestinal: Denies: nausea Genitourinary: Denies: urgency Musculoskeletal: Denies: back pain Past Medical History Past Medical History: Hyperlipidemia, Hypertension, Myocardial Infarction (MA), Sleep Apnea/CPAP/BIPAP Additional Past Medical History / Comment(s): uses cpap Last Myocardial Infarction Date:: 04/2020 History of Any Multi-Drug Resistant Organisms: None Reported Past Surgical History: Heart Catheterization Past Anesthesia/Blood Transfusion Reactions: No Reported Reaction Additional Past Anesthesia/Blood Transfusion Reaction / Comment(s): no known of hx blood transfusion Past Psychological History: No Psychological Hx Reported Smoking Status: Former smoker Past Alcohol Use History: Occasional Past Drug Use History: None Reported - Past Family History Mother Additional Family Medical History / Comment(s): Low blood pressure Father Family Medical History: COPD General Exam Limitations: no limitations General appearance: alert, in no apparent distress Head exam: Present: normocephalic Eye exam: Present: normal appearance Neck exam: Present: normal inspection Respiratory exam: Present: normal lung sounds bilaterally Cardiovascular Exam: Present: regular rate, normal rhythm, normal heart sounds Expanded Peripheral pulses: 2+: Radial (R), Radial (L), Dorsalis Pedis (R), Dorsalis Pedis (L) GI/Abdominal exam: Present: soft. Absent: tenderness Extremities exam: Present: normal inspection. Absent: pedal edema, calf tenderness Neurological exam: Present: alert, oriented X3, CN II-XII intact. Absent: motor sensory deficit Psychiatric exam: Present: normal affect, normal mood Skin exam: Present: normal color Course Vital Signs 12/25/22 12/25/22 12:20 13:46 Pulse Rate 87 85 Respiratory 18 16 Rate Blood Pressure 127/91 169/96 O2 Sat by Pulse 95 97 Oximetry - Reevaluation(s) Reevaluation #1: 12/25/22 12:34 2 outside EKGs reviewed, one with narrow complex tachycardia. Second one with sinus rhythm. EKG Findings - EKG Results: EKG: interpreted by ERMD (Incomplete right bundle-branch block. Q wave in lead III.), sinus rhythm, normal axis, normal ST/T Medical Decision Making - Medical Decision Making Was pt. sent in by a medical professional or institution (, PA, CATALYST OPERATOR CHIEF, urgent care, hospital, or care home...) When possible be specific @ -No Did you speak to anyone other than the patient for history (EMS, parent, family, police, friend...)? What history was obtained from this source @ -EMS helps provide history including medication given Did you review nursing and triage notes (agree or disagree)? Why? @ -I reviewed and agree with nursing and triage notes Were old charts reviewed (outside hosp., previous admission, EMS record, old EKG, old radiological studies, urgent care reports/EKG's, care home records)? Report findings @ -Previous record and EKG reviewed Differential Diagnosis (chest pain, altered mental status, abdominal pain women, abdominal pain men, vaginal bleeding, weakness, fever, dyspnea, syncope, headache, dizziness, GI bleed, back pain, seizure, CVA, palpatations, mental health)? @ Differential Chest Pain: Stable Angina, Unstable Angina, STEMI, NSTEMI Aortic Dissection, Pneumothorax, Musculoskeletal, Esophageal Spasm GERD, Cholecystitis, Pancreatitis, Zoster, this is not meant to be an all-inclusive list. EKG interpreted by me (3pts min.). @ -As above X-rays interpreted by me (1pt min.). @ -Chest x-ray reveals no acute process CT interpreted by me (1pt min.). @ -None done U/S interpreted by me (1pt. min.). @ -None done What testing was considered but not performed or refused? (CT, X-rays, U/S, labs)? Why? @ -None What meds were considered but not given or refused? Why? @ -None Did you discuss the management of the patient with other professionals (professionals i.e. , PA, CATALYST OPERATOR CHIEF, lab, RT, psych nurse, medical social consultant, electronic court recorder, teacher, community service officer coordinator, correctional casework specialist)? Give summary @ -No Was smoking cessation discussed for >3mins.? @ -No Was critical care preformed (if so, how long)? @ -No Were there social determinants of health that impacted care today? How? (Homelessness, low income, unemployed, alcoholism, drug addiction, transportation, low edu. Level, literacy, decrease access to med. care, [facility], rehab)? @ -No Was there de-escalation of care discussed even if they declined (Discuss DNR or withdrawal of care, Hospice)? DNR status @ -No What co-morbidities impacted this encounter? (DM, HTN, Smoking, COPD, CAD, Cancer, CVA, ARF, Chemo, Hep., AIDS, mental health diagnosis, sleep apnea, morbid obesity)? @ -None Was patient admitted / discharged? Hospital course, mention meds given and route, prescriptions, significant lab abnormalities, going to OR and other pertinent info. @ -Patient reevaluated and remained symptom-free. Patient is updated on results and need for follow-up. Patient previously states she is seeing Dr. Chew and will follow-up with him as well. A jimenes is advised to check her heart rate frequently Undiagnosed new problem with uncertain prognosis? @ -No Drug Therapy requiring intensive monitoring for toxicity (Heparin, Nitro, Insulin, Cardizem)? @ -No Were any procedures done? @ -No Diagnosis/symptom? @ -SVT Acute, or Chronic, or Acute on Chronic? @ -Acute Uncomplicated (without systemic symptoms) or Complicated (systemic symptoms)? @ -default Side effects of treatment? @ -No Exacerbation, Progression, or Severe Exacerbation? @ -No Poses a threat to life or bodily function? How? (Chest pain, USA, MA, pneumonia, PE, COPD, DKA, ARF, appy, cholecystitis, CVA, Diverticulitis, Homicidal, Suicidal, threat to staff... and all critical care pts) @ -No - Lab Data Result diagrams: 12/25/22 12:34 12/25/22 12:34 Lab Results 12/25/22 12/25/22 12/25/22 Range/Units 12:34 12:34 12:34 WBC 7.1 (3.8-10.6) k/uL RBC 5.05 (3.80-5.40) m/uL Hgb 15.2 (11.4-16.0) gm/dL Hct 45.7 (34.0-46.0) % MCV 90.5 (80.0-100.0) fL MCH 30.1 (25.0-35.0) pg MCHC 33.3 (31.0-37.0) g/dL RDW 13.6 (11.5-15.5) % Plt Count 219 (150-450) k/uL MPV 9.0 Neutrophils % 74 % Lymphocytes % 16 % Monocytes % 6 % Eosinophils % 3 % Basophils % 0 % Neutrophils # 5.3 (1.3-7.7) k/uL Lymphocytes # 1.1 (1.0-4.8) k/uL Monocytes # 0.4 (0-1.0) k/uL Eosinophils # 0.2 (0-0.7) k/uL Basophils # 0.0 (0-0.2) k/uL PT 9.9 (9.0-12.0) sec INR 0.9 (<1.2) APTT 22.7 (22.0-30.0) sec Sodium 136 L (137-145) mmol/L Potassium 4.8 (3.5-5.1) mmol/L Chloride 105 (98-107) mmol/L Carbon Dioxide 22 (22-30) mmol/L Anion Gap 9 mmol/L BUN 17 (7-17) mg/dL Creatinine 0.97 (0.52-1.04) mg/dL Est GFR (CKD-EPI)AfAm 67 (>60 ml/min/1.73 sqM) Est GFR (CKD-EPI)NonAf 58 (>60 ml/min/1.73 sqM) Glucose 104 H (74-99) mg/dL Calcium 8.6 (8.4-10.2) mg/dL Magnesium 2.0 (1.6-2.3) mg/dL Total Bilirubin 0.6 (0.2-1.3) mg/dL AST 29 (14-36) U/L ALT 25 (4-34) U/L Alkaline Phosphatase 98 (38-126) U/L Troponin I (0.000-0.034) ng/mL Total Protein 6.5 (6.3-8.2) g/dL Albumin 3.8 (3.5-5.0) g/dL TSH 2.120 (0.465-4.680) mIU/L Free T4 1.28 (0.78-2.19) ng/dL Free T3 pg/mL 5.1 (2.8-5.3) pg/ml 12/25/22 Range/Units 12:34 WBC (3.8-10.6) k/uL RBC (3.80-5.40) m/uL Hgb (11.4-16.0) gm/dL Hct (34.0-46.0) % MCV (80.0-100.0) fL MCH (25.0-35.0) pg MCHC (31.0-37.0) g/dL RDW (11.5-15.5) % Plt Count (150-450) k/uL MPV Neutrophils % % Lymphocytes % % Monocytes % % Eosinophils % % Basophils % % Neutrophils # (1.3-7.7) k/uL Lymphocytes # (1.0-4.8) k/uL Monocytes # (0-1.0) k/uL Eosinophils # (0-0.7) k/uL Basophils # (0-0.2) k/uL PT (9.0-12.0) sec INR (<1.2) APTT (22.0-30.0) sec Sodium (137-145) mmol/L Potassium (3.5-5.1) mmol/L Chloride (98-107) mmol/L Carbon Dioxide (22-30) mmol/L Anion Gap mmol/L BUN (7-17) mg/dL Creatinine (0.52-1.04) mg/dL Est GFR (CKD-EPI)AfAm (>60 ml/min/1.73 sqM) Est GFR (CKD-EPI)NonAf (>60 ml/min/1.73 sqM) Glucose (74-99) mg/dL Calcium (8.4-10.2) mg/dL Magnesium (1.6-2.3) mg/dL Total Bilirubin (0.2-1.3) mg/dL AST (14-36) U/L ALT (4-34) U/L Alkaline Phosphatase (38-126) U/L Troponin I 0.018 (0.000-0.034) ng/mL Total Protein (6.3-8.2) g/dL Albumin (3.5-5.0) g/dL TSH (0.465-4.680) mIU/L Free T4 (0.78-2.19) ng/dL Free T3 pg/mL (2.8-5.3) pg/ml Disposition Clinical Impression: Supraventricular tachycardia Disposition: HOME SELF-CARE Condition: Stable Instructions (If sedation given, give patient instructions): Heart Palpitations (ED) Additional Instructions: Please monitor your heart rate several times per day. Please do follow-up to primary care physician in the next day or 2 for recheck. Please also follow-up with your broadcast operations technician in the next day or 2 for recheck. You will need further evaluation including monitoring and possible echo. Return for increased heart rate, chest pain or shortness of breath, worsening or changing symptoms or other concerns. Is patient prescribed a controlled substance at d/c from ED?: No Referrals: Chintan Fritz MD [Primary Care Provider] - 1-2 days Mason Arechiga MD [STAFF PHYSICIAN] - 1-2 days Time of Disposition: 13:52
[2022-12-25 12:42] LABS: Basophils % (A) 0 %; Eosinophils # (A) 0.2 k/uL (0-0.7); Eosinophils % (A) 3 %; HCT 45.7 % (34.0-46.0); HGB 15.2 gm/dL (11.4-16.0); Lymphocytes # (A) 1.1 k/uL (1.0-4.8); Lymphocytes % (A) 16 %; MCH 30.1 pg (25.0-35.0); MCHC 33.3 g/dL (31.0-37.0); MCV 90.5 fL (80.0-100.0); Monocytes # (A) 0.4 k/uL (0-1.0); Monocytes % (A) 6 %; Neutrophils # (A) 5.3 k/uL (1.3-7.7); Neutrophils % (A) 74 %; Platelet Count 219 k/uL (150-450); RBC 5.05 m/uL (3.80-5.40); RDW 13.6 % (11.5-15.5); WBC 7.1 k/uL (3.8-10.6)
--- NOTE | 2022-12-25 12:47 | XR ---
EXAMINATION TYPE: XR chest 2V DATE OF EXAM: 12/25/2022 COMPARISON: 12/20/2022 HISTORY: 72-year-old female dysrhythmia, chest tightness TECHNIQUE: PA and lateral views FINDINGS: Low lung volumes and cardiovascular markings. This accentuates heart size, likely upper limits of nor mal. Large rounded lucency projecting behind the heart. Mild patchy left basilar opacity, likely atel ectasis. No other consolidation or pleural effusion seen. IMPRESSION: Hypoventilatory changes and suspected underlying large hiatal hernia. No definite acute process.
[2022-12-25 12:52] LABS: INR 0.9 (<1.2); Partial Thromboplastin Time 22.7 sec (22.0-30.0); Prothrombin Time 9.9 sec (9.0-12.0)
[2022-12-25 13:01] LABS: Albumin 3.8 g/dL (3.5-5.0); Calcium 8.6 mg/dL (8.4-10.2); Potassium 4.8 mmol/L (3.5-5.1); Total Bilirubin 0.6 mg/dL (0.2-1.3); Total Protein 6.5 g/dL (6.3-8.2)
[2022-12-25 13:17] LABS: T4, Free (Free Thyroxine) 1.28 ng/dL (0.78-2.19)
[2022-12-25 14:05] VITALS: BP 134/95; PULSE 80; RESP 18; TEMP 98.2
== END 2022-12-25 14:12 | disposition home or self-care (01) ==
LOC: EC 12:13
DX: I47.1 Supraventricular tachycardia (principal); I10 Essential (primary) hypertension; I25.2 Old myocardial infarction; G47.30 Sleep apnea, unspecified; E78.5 Hyperlipidemia, unspecified; Z79.899 Other long term (current) drug therapy; Z87.891 Personal history of nicotine dependence
CPT/HCPCS: 36415; 71046; 80053; 83735; 84439; 84443; 84481; 84484; 85025; 85610; 85730; 99285

== ENCOUNTER 2023-01-03 21:27 | Emergency (ER) | payer MEDICARE ==
--- NOTE | 2023-01-03 21:42 | ED ---
General Adult HPI - General Chief complaint: Arrhythmia/Palpitations Stated complaint: Palpitations Time Seen by Provider: 01/03/23 21:38 Source: patient, EMS Mode of arrival: EMS Limitations: no limitations - History of Present Illness Initial comments: 's patient is 72-year-old woman who presents with complaint of having lightheadedness and shortness of breath that has been coming in episodes going back 3 weeks now. She has been seen here on 2 previous occasions for similar symptoms. The episodes seem to be associated with elevated blood pressure. She states that she is to have follow-up with cardiology to have echocardiogram, possibly other testing. She denies chest pain, diaphoresis, nausea vomiting. -: week(s) Severity scale (1-10): 0 Consistency: intermittent Improves with: none Worsens with: none Associated Symptoms: other (Dizzy/lightheaded) Treatments Prior to Arrival: none - Related Data Home Medications Medication Instructions Recorded Confirmed Metoprolol Succinate (ER) [Toprol 50 mg PO DAILY 05/08/20 01/03/23 XL] Nitroglycerin Sl Tabs [Nitrostat] 0.4 mg SL Q5M PRN 12/27/20 01/03/23 Ferrous Sulfate [Feosol] 325 mg PO DAILY 06/22/22 01/03/23 Isosorbide Mononitrate ER [Imdur] 30 mg PO DAILY 06/22/22 01/03/23 Cholecalciferol [Vitamin D3 (25 50 mcg PO DAILY 12/20/22 01/03/23 Mcg = 1000 Iu)] Atorvastatin [Lipitor] 20 mg PO HS 12/25/22 01/03/23 Previous Rx's Medication Instructions Recorded Losartan [Cozaar] 50 mg PO BID #60 tab 12/29/20 Allergies Allergy/AdvReac Type Severity Reaction Status Date / Time No Known Allergies Allergy Verified 01/03/23 21:57 Review of Systems ROS Statement: Those systems with pertinent positive or pertinent negative responses have been documented in the HPI. ROS Other: All systems not noted in ROS Statement are negative. Constitutional: Denies: fever, chills Respiratory: Reports: dyspnea. Denies: cough Cardiovascular: Denies: chest pain, palpitations, dyspnea on exertion, edema, syncope Gastrointestinal: Denies: abdominal pain, nausea, vomiting Genitourinary: Denies: dysuria, hematuria Musculoskeletal: Denies: back pain Skin: Denies: rash Neurological: Denies: headache, weakness, numbness Psychiatric: Reports: anxiety. Denies: auditory hallucinations Past Medical History Past Medical History: Hyperlipidemia, Hypertension, Myocardial Infarction ([place]), Sleep Apnea/CPAP/BIPAP Additional Past Medical History / Comment(s): uses cpap Last Myocardial Infarction Date:: 04/2020 History of Any Multi-Drug Resistant Organisms: None Reported Past Surgical History: Heart Catheterization Past Anesthesia/Blood Transfusion Reactions: No Reported Reaction Additional Past Anesthesia/Blood Transfusion Reaction / Comment(s): no known of hx blood transfusion Past Psychological History: No Psychological Hx Reported Smoking Status: Former smoker Past Alcohol Use History: Occasional Past Drug Use History: None Reported - Past Family History Mother Additional Family Medical History / Comment(s): Low blood pressure Father Family Medical History: COPD General Exam Limitations: no limitations General appearance: alert, in no apparent distress Head exam: Present: atraumatic, normocephalic Eye exam: Present: normal appearance. Absent: scleral icterus, conjunctival injection ENT exam: Present: normal oropharynx Neck exam: Present: normal inspection Respiratory exam: Present: normal lung sounds bilaterally. Absent: respiratory distress, wheezes, rales, rhonchi, stridor Cardiovascular Exam: Present: regular rate, normal rhythm, normal heart sounds. Absent: systolic murmur, diastolic murmur, rubs, gallop GI/Abdominal exam: Present: soft. Absent: distended, tenderness, guarding, rebound, rigid, mass Extremities exam: Present: normal inspection, normal capillary refill. Absent: pedal edema, calf tenderness Back exam: Present: normal inspection. Absent: CVA tenderness (R), CVA tenderness (L) Neurological exam: Present: alert Skin exam: Present: warm, dry, intact, normal color. Absent: rash Course Vital Signs 01/03/23 01/03/23 01/03/23 21:28 22:33 22:40 Temperature Pulse Rate 67 79 63 Respiratory 18 21 16 Rate Blood Pressure 202/102 202/102 229/108 O2 Sat by Pulse 97 95 99 Oximetry 01/03/23 01/03/23 01/03/23 23:05 23:10 23:13 Temperature Pulse Rate 71 60 78 Respiratory 18 11 L 16 Rate Blood Pressure 212/93 212/93 182/94 O2 Sat by Pulse 97 98 98 Oximetry 01/03/23 01/03/23 01/04/23 23:20 23:40 00:00 Temperature Pulse Rate 69 68 68 Respiratory 14 17 12 Rate Blood Pressure 182/94 173/85 168/89 O2 Sat by Pulse 96 95 96 Oximetry 01/04/23 01/04/23 01/04/23 00:10 00:20 00:30 Temperature Pulse Rate 73 67 71 Respiratory 19 23 11 L Rate Blood Pressure 182/94 161/88 164/88 O2 Sat by Pulse 96 95 96 Oximetry 01/04/23 01/04/23 01/04/23 00:50 01:00 01:30 Temperature Pulse Rate 76 68 Respiratory 17 20 Rate Blood Pressure 155/90 155/90 161/97 O2 Sat by Pulse 95 96 97 Oximetry 01/04/23 01/04/23 01/04/23 01:50 02:06 02:30 Temperature Pulse Rate 69 67 Respiratory 14 17 Rate Blood Pressure 173/105 191/80 184/92 O2 Sat by Pulse 97 95 Oximetry 01/04/23 01/04/23 01/04/23 02:40 03:00 03:10 Temperature Pulse Rate 68 65 70 Respiratory 13 20 17 Rate Blood Pressure 184/92 170/85 O2 Sat by Pulse 95 97 95 Oximetry 01/04/23 01/04/23 01/04/23 03:20 03:30 03:40 Temperature Pulse Rate 64 65 64 Respiratory 15 13 13 Rate Blood Pressure 147/82 O2 Sat by Pulse 93 L 93 L 70 L Oximetry 01/04/23 01/04/23 01/04/23 03:50 05:00 05:10 Temperature Pulse Rate 61 Respiratory 14 Rate Blood Pressure 117/71 105/64 106/61 O2 Sat by Pulse 93 L 97 Oximetry 01/04/23 05:36 Temperature 98.6 F Pulse Rate 69 Respiratory 18 Rate Blood Pressure 108/69 O2 Sat by Pulse 94 L Oximetry EKG Findings - EKG Results: EKG: interpreted by ERMD, sinus rhythm (Rate 63 bpm), normal axis - Blocks, [place], Hypertrophy, ST Abn: AV and intraventricular conduction: right bundle branch block (fixed/intermittent, complete/incomplete) (Possible incomplete right bundle branch block) QRS axis and voltage: low voltage (<0.5 MV total QRS and <1.0 MV in each precordial lead) Medical Decision Making - Medical Decision Making This patient is 72-year-old woman presenting with episode of hypertension and lightheadedness/dizziness. The physical exam and the studies are unremarkable. Given that this is third episode I did discuss case with the sound physician regarding admission, he reviewed the chart and states that the rest of the workup will be outpatient, and he elected the patient obtaining her echocardiogram and then also follow with neurology as outpatient. Discussed this with the patient was feeling better following antihypertensives and will complete the workup as outpatient. Discussed appropriate further care and follow-up as well as return parameters The patient had chest x-ray which I interpreted as being negative for acute infiltrate, congestive heart failure, pneumothorax Was pt. sent in by a medical professional or institution (, PA, EQUIPMENT TECHNICIAN, urgent care, hospital, or fpc...) When possible be specific @ -[No] Did you speak to anyone other than the patient for history (EMS, parent, family, police, friend...)? What history was obtained from this source @ -[No] Did you review nursing and triage notes (agree or disagree)? Why? @ -[I reviewed and agree with nursing and triage notes] Were old charts reviewed (outside hosp., previous admission, EMS record, old EKG, old radiological studies, urgent care reports/EKG's, fpc records)? Report findings @ -[old charts were reviewed] Differential Diagnosis (chest pain, altered mental status, abdominal pain women, abdominal pain men, vaginal bleeding, weakness, fever, dyspnea, syncope, headache, dizziness, GI bleed, back pain, seizure, CVA, palpatations, mental health, musculoskeletal)? @ -[Differential Dyspnea: Coronary syndrome, arrhythmia, tamponade, asthma, COPD, pulmonary embolism, pneumonia, pneumothorax, pulmonary effusion, anaphylaxis, diabetic ketoacidosis, flailed chest, pulmonary contusion, diaphragmatic rupture, anemia, neuromuscular, this is not meant to be an all-inclusive list. EKG interpreted by me (3pts min.). @ -[As above] X-rays interpreted by me (1pt min.). @ -[As above CT interpreted by me (1pt min.). @ -[None done] U/S interpreted by me (1pt. min.). @ -[None done] What testing was considered but not performed or refused? (CT, X-rays, U/S, labs)? Why? @ -[None] What meds were considered but not given or refused? Why? @ -[None] Did you discuss the management of the patient with other professionals (vladislav sutherland i.eSotero Figueroa, PA, EQUIPMENT TECHNICIAN, lab, RT, psych nurse, medical social consultant, plater production, teacher, commissary officer, high risk case manager)? Give summary @ -[Case discussed with the sound physician, as above Was smoking cessation discussed for >3mins.? @ -[No] Was critical care preformed (if so, how long)? @ -[No] Were there social determinants of health that impacted care today? How? (Homelessness, low income, unemployed, alcoholism, drug addiction, transportation, low edu. Level, literacy, decrease access to med. care, half-way, rehab)? @ -[No] Was there de-escalation of care discussed even if they declined (Discuss DNR or withdrawal of care, Hospice)? DNR status @ -[No] What co-morbidities impacted this encounter? (DM, HTN, Smoking, COPD, CAD, Cancer, CVA, ARF, Chemo, Hep., AIDS, mental health diagnosis, sleep apnea, morbid obesity)? @ -[Hypertension Was patient admitted / discharged? Hospital course, mention meds given and route, prescriptions, significant lab abnormalities, going to OR and other pertinent info. @ -[Discharged Undiagnosed new problem with uncertain prognosis? @ -[No] Drug Therapy requiring intensive monitoring for toxicity (Heparin, Nitro, Insulin, Cardizem)? @ -[No] Were any procedures done? @ -[No] Diagnosis/symptom? @ -[Acute on chronic hypertension Acute, or Chronic, or Acute on Chronic? @ -[default] Uncomplicated (without systemic symptoms) or Complicated (systemic symptoms)? @ -[default] Side effects of treatment? @ -[No] Exacerbation, Progression, or Severe Exacerbation? @ -[No] Poses a threat to life or bodily function? How? (Chest pain, [place], [place], pneumonia, PE, COPD, DKA, ARF, appy, cholecystitis, CVA, Diverticulitis, Homicidal, Suicidal, threat to staff... and all critical care pts) @ -[No] - Lab Data Result diagrams: 01/03/23 22:23 01/03/23 22:23 Lab Results 01/03/23 01/03/23 01/03/23 Range/Units 21:46 22:23 22:23 WBC 6.7 (3.8-10.6) k/uL RBC 4.76 (3.80-5.40) m/uL Hgb 14.3 (11.4-16.0) gm/dL Hct 42.8 (34.0-46.0) % MCV 90.0 (80.0-100.0) fL MCH 30.1 (25.0-35.0) pg MCHC 33.5 (31.0-37.0) g/dL RDW 13.5 (11.5-15.5) % Plt Count 171 (150-450) k/uL MPV 9.0 Neutrophils % 57 % Lymphocytes % 29 % Monocytes % 8 % Eosinophils % 3 % Basophils % 1 % Neutrophils # 3.8 (1.3-7.7) k/uL Lymphocytes # 1.9 (1.0-4.8) k/uL Monocytes # 0.5 (0-1.0) k/uL Eosinophils # 0.2 (0-0.7) k/uL Basophils # 0.1 (0-0.2) k/uL PT 9.7 (9.0-12.0) sec INR 0.9 (<1.2) APTT 23.0 (22.0-30.0) sec Sodium (137-145) mmol/L Potassium (3.5-5.1) mmol/L Chloride (98-107) mmol/L Carbon Dioxide (22-30) mmol/L Anion Gap mmol/L BUN (7-17) mg/dL Creatinine (0.52-1.04) mg/dL Est GFR (CKD-EPI)AfAm (>60 ml/min/1.73 sqM) Est GFR (CKD-EPI)NonAf (>60 ml/min/1.73 sqM) Glucose (74-99) mg/dL Plasma Lactic Acid [place] 1.1 (0.7-2.0) mmol/L Calcium (8.4-10.2) mg/dL Magnesium (1.6-2.3) mg/dL Total Bilirubin (0.2-1.3) mg/dL AST (14-36) U/L ALT (4-34) U/L Alkaline Phosphatase (38-126) U/L Troponin I (0.000-0.034) ng/mL Total Protein (6.3-8.2) g/dL Albumin (3.5-5.0) g/dL Urine Color Urine Appearance (Clear) Urine pH (5.0-8.0) Ur Specific [place] (1.001-1.035) Urine Protein (Negative) Urine Glucose (UA) (Negative) Urine Ketones (Negative) Urine Blood (Negative) Urine Nitrite (Negative) Urine Bilirubin (Negative) Urine Urobilinogen (<2.0) mg/dL Ur Leukocyte Esterase (Negative) 01/03/23 01/03/23 01/03/23 Range/Units 22:23 22:23 22:38 WBC (3.8-10.6) k/uL RBC (3.80-5.40) m/uL Hgb (11.4-16.0) gm/dL Hct (34.0-46.0) % MCV (80.0-100.0) fL MCH (25.0-35.0) pg MCHC (31.0-37.0) g/dL RDW (11.5-15.5) % Plt Count (150-450) k/uL MPV Neutrophils % % Lymphocytes % % Monocytes % % Eosinophils % % Basophils % % Neutrophils # (1.3-7.7) k/uL Lymphocytes # (1.0-4.8) k/uL Monocytes # (0-1.0) k/uL Eosinophils # (0-0.7) k/uL Basophils # (0-0.2) k/uL PT (9.0-12.0) sec INR (<1.2) APTT (22.0-30.0) sec Sodium 135 L (137-145) mmol/L Potassium 3.9 (3.5-5.1) mmol/L Chloride 103 (98-107) mmol/L Carbon Dioxide 25 (22-30) mmol/L Anion Gap 7 mmol/L BUN 20 H (7-17) mg/dL Creatinine 1.03 (0.52-1.04) mg/dL Est GFR (CKD-EPI)AfAm 62 (>60 ml/min/1.73 sqM) Est GFR (CKD-EPI)NonAf 54 (>60 ml/min/1.73 sqM) Glucose 92 (74-99) mg/dL Plasma Lactic Acid [place] (0.7-2.0) mmol/L Calcium 8.9 (8.4-10.2) mg/dL Magnesium 2.2 (1.6-2.3) mg/dL Total Bilirubin 0.6 (0.2-1.3) mg/dL AST 25 (14-36) U/L ALT 25 (4-34) U/L Alkaline Phosphatase 103 (38-126) U/L Troponin I <0.012 (0.000-0.034) ng/mL Total Protein 6.3 (6.3-8.2) g/dL Albumin 3.6 (3.5-5.0) g/dL Urine Color Colorless Urine Appearance Clear (Clear) Urine pH 5.5 (5.0-8.0) Ur Specific [place] 1.004 (1.001-1.035) Urine Protein Negative (Negative) Urine Glucose (UA) Negative (Negative) Urine Ketones Negative (Negative) Urine Blood Negative (Negative) Urine Nitrite Negative (Negative) Urine Bilirubin Negative (Negative) Urine Urobilinogen <2.0 (<2.0) mg/dL Ur Leukocyte Esterase Negative (Negative) 01/04/23 Range/Units 03:03 WBC (3.8-10.6) k/uL RBC (3.80-5.40) m/uL Hgb (11.4-16.0) gm/dL Hct (34.0-46.0) % MCV (80.0-100.0) fL MCH (25.0-35.0) pg MCHC (31.0-37.0) g/dL RDW (11.5-15.5) % Plt Count (150-450) k/uL MPV Neutrophils % % Lymphocytes % % Monocytes % % Eosinophils % % Basophils % % Neutrophils # (1.3-7.7) k/uL Lymphocytes # (1.0-4.8) k/uL Monocytes # (0-1.0) k/uL Eosinophils # (0-0.7) k/uL Basophils # (0-0.2) k/uL PT (9.0-12.0) sec INR (<1.2) APTT (22.0-30.0) sec Sodium (137-145) mmol/L Potassium (3.5-5.1) mmol/L Chloride (98-107) mmol/L Carbon Dioxide (22-30) mmol/L Anion Gap mmol/L BUN (7-17) mg/dL Creatinine (0.52-1.04) mg/dL Est GFR (CKD-EPI)AfAm (>60 ml/min/1.73 sqM) Est GFR (CKD-EPI)NonAf (>60 ml/min/1.73 sqM) Glucose (74-99) mg/dL Plasma Lactic Acid [place] (0.7-2.0) mmol/L Calcium (8.4-10.2) mg/dL Magnesium (1.6-2.3) mg/dL Total Bilirubin (0.2-1.3) mg/dL AST (14-36) U/L ALT (4-34) U/L Alkaline Phosphatase (38-126) U/L Troponin I <0.012 (0.000-0.034) ng/mL Total Protein (6.3-8.2) g/dL Albumin (3.5-5.0) g/dL Urine Color Urine Appearance (Clear) Urine pH (5.0-8.0) Ur Specific [place] (1.001-1.035) Urine Protein (Negative) Urine Glucose (UA) (Negative) Urine Ketones (Negative) Urine Blood (Negative) Urine Nitrite (Negative) Urine Bilirubin (Negative) Urine Urobilinogen (<2.0) mg/dL Ur Leukocyte Esterase (Negative) Disposition Clinical Impression: Hypertension Disposition: HOME SELF-CARE Condition: Fair Instructions (If sedation given, give patient instructions): Hypertension (ED) Is patient prescribed a controlled substance at d/c from ED?: No Referrals: Chintan Fritz MD [Primary Care Provider] - 1-2 days Ary Bae MD [REFERRING] - 1-2 days Andrei Isabel MD [STAFF PHYSICIAN] - 1-2 days
[2023-01-03 22:30] LABS: Basophils # (A) 0.1 k/uL (0-0.2); Basophils % (A) 1 %; Eosinophils # (A) 0.2 k/uL (0-0.7); Eosinophils % (A) 3 %; HCT 42.8 % (34.0-46.0); HGB 14.3 gm/dL (11.4-16.0); Lymphocytes # (A) 1.9 k/uL (1.0-4.8); Lymphocytes % (A) 29 %; MCH 30.1 pg (25.0-35.0); MCHC 33.5 g/dL (31.0-37.0); Monocytes # (A) 0.5 k/uL (0-1.0); Monocytes % (A) 8 %; Neutrophils # (A) 3.8 k/uL (1.3-7.7); Neutrophils % (A) 57 %; Platelet Count 171 k/uL (150-450); RBC 4.76 m/uL (3.80-5.40); RDW 13.5 % (11.5-15.5); WBC 6.7 k/uL (3.8-10.6)
[2023-01-03 22:33] LABS: Albumin 3.6 g/dL (3.5-5.0); Calcium 8.9 mg/dL (8.4-10.2); Magnesium 2.2 mg/dL (1.6-2.3); Potassium 3.9 mmol/L (3.5-5.1); Total Bilirubin 0.6 mg/dL (0.2-1.3); Total Protein 6.3 g/dL (6.3-8.2)
[2023-01-03 22:36] LABS: INR 0.9 (<1.2); Prothrombin Time 9.7 sec (9.0-12.0)
--- NOTE | 2023-01-03 22:37 | XR ---
EXAMINATION TYPE: XR chest 1V portable DATE OF EXAM: 01/03/2023 10:30 PM COMPARISON: Chest radiographs from 12/25/2022 TECHNIQUE: XR chest 1V portable Frontal view of the chest. CLINICAL INDICATION:Female, 72 years old with history of dysrhythmia; FINDINGS: Lungs/Pleura: There is no evidence of pleural effusion, focal consolidation, or pneumothorax. Pulmonary vascularity: Unremarkable. Heart/mediastinum: Cardiomediastinal silhouette is unremarkable. Musculoskeletal: No acute osseous pathology. Other findings: Large lucency again demonstrated projecting behind the heart. IMPRESSION: 1. No acute cardiopulmonary disease/process. 2. Suspected large hiatal hernia again.
[2023-01-03 22:44] LABS: Appearance,Urine Clear (Clear); Bilirubin,Urine Negative (Negative); Blood,Urine Negative (Negative); Color,Urine Colorless; Glucose,Urine (UA) Negative (Negative); Ketones,Urine Negative (Negative); Leukocyte Esterase,Urine Negative (Negative); Nitrite,Urine Negative (Negative); PH, Urine 5.5 (5.0-8.0); Protein,Urine Negative (Negative); Specific Gravity,Urine 1.004 (1.001-1.035); Urobilinogen,Urine <2.0 mg/dL (<2.0)
[2023-01-03] MEDS ORDERED: LABETALOL 5 MG/ML VIAL MDV IVP STA (22:56)
[2023-01-03] MEDS ORDERED: NITROGLYCERIN OINT 1 INCH/GM PACKET TOPICAL STA (22:56)
[2023-01-03] MEDS ORDERED: LOSARTAN 50 MG TAB PO STA (23:47)
[2023-01-04] MEDS ORDERED: cloNIDine HCL 0.2 MG TAB PO STA (02:38)
[2023-01-04 05:42] VITALS: BP 108/69; PULSE 69; RESP 18; TEMP 98.6
== END 2023-01-04 05:42 | disposition home or self-care (01) ==
LOC: EC 21:27
DX: I10 Essential (primary) hypertension (principal); E78.5 Hyperlipidemia, unspecified; I25.2 Old myocardial infarction; Z87.891 Personal history of nicotine dependence; Z79.899 Other long term (current) drug therapy
CPT/HCPCS: 36415; 71045; 80053; 81003; 83605; 83735; 84484; 85025; 85610; 85730; 93005; 96374; 99285

== ENCOUNTER 2023-05-11 18:27 | Inpatient (IN) | payer MEDICARE ==
[2023-05-11] MEDS ORDERED: DILTIAZEM DRIP BOLUS FROM BAG 1 MG SOLN IV ONE (18:58)
[2023-05-11] MEDS ORDERED: SODIUM CHLORIDE 0.9% 500 ML 500 ML IV ONE (18:58)
[2023-05-11] MEDS ORDERED: DILTIAZEM 125 MG in SODIUM CHLORIDE 0.9% 100 ML IV SCH (19:00)
--- NOTE | 2023-05-11 19:02 | ED ---
General Adult HPI - General Chief complaint: Arrhythmia/Palpitations Stated complaint: A-Fib Time Seen by Provider: 05/11/23 18:38 Source: patient, EMS, RN notes reviewed, old records reviewed Mode of arrival: EMS Limitations: no limitations - History of Present Illness Initial comments: 72 -year-old female presenting with palpitation, chest tightness. Patient was noted to be in nature fibrillation by paramedics. She does have history of atrial fibrillation currently on Coreg. She denies current anticoagulation. She denies central chest pain or dyspnea. No fever. No cough. No vomiting. - Related Data Home Medications Medication Instructions Recorded Confirmed Nitroglycerin Sl Tabs [Nitrostat] 0.4 mg SL Q5M PRN 12/27/20 05/11/23 Ferrous Sulfate [Feosol] 325 mg PO DAILY 06/22/22 05/11/23 Isosorbide Mononitrate ER [Imdur] 30 mg PO DAILY 06/22/22 05/11/23 Cholecalciferol [Vitamin D3 (25 50 mcg PO DAILY 12/20/22 05/11/23 Mcg = 1000 Iu)] Atorvastatin [Lipitor] 20 mg PO HS 12/25/22 05/11/23 Aspirin EC [Ecotrin Low Dose] 81 mg PO DAILY 05/11/23 05/11/23 Losartan Potassium 100 mg PO DAILY 05/11/23 05/11/23 carvediloL [Coreg] 12.5 mg PO BID 05/11/23 05/11/23 Allergies Allergy/AdvReac Type Severity Reaction Status Date / Time No Known Allergies Allergy Verified 05/11/23 19:21 Review of Systems ROS Statement: Those systems with pertinent positive or pertinent negative responses have been documented in the HPI. ROS Other: All systems not noted in ROS Statement are negative. Past Medical History Past Medical History: Hyperlipidemia, Hypertension, Myocardial Infarction ([place]), Sleep Apnea/CPAP/BIPAP Additional Past Medical History / Comment(s): uses cpap Last Myocardial Infarction Date:: 04/2020 History of Any Multi-Drug Resistant Organisms: None Reported Past Surgical History: Heart Catheterization Past Anesthesia/Blood Transfusion Reactions: No Reported Reaction Additional Past Anesthesia/Blood Transfusion Reaction / Comment(s): no known of hx blood transfusion Past Psychological History: No Psychological Hx Reported Smoking Status: Former smoker Past Alcohol Use History: Occasional Past Drug Use History: None Reported - Past Family History Mother Additional Family Medical History / Comment(s): Low blood pressure Father Family Medical History: COPD General Exam Limitations: no limitations General appearance: alert, in no apparent distress Head exam: Present: atraumatic, normocephalic Eye exam: Present: normal appearance, PERRL ENT exam: Present: normal exam Neck exam: Present: normal inspection. Absent: tenderness, meningismus Respiratory exam: Present: normal lung sounds bilaterally. Absent: respiratory distress, wheezes Cardiovascular Exam: Present: normal rhythm, tachycardia GI/Abdominal exam: Present: soft. Absent: distended, tenderness, guarding Extremities exam: Present: normal inspection, normal capillary refill Neurological exam: Present: alert, oriented X3, CN II-XII intact. Absent: motor sensory deficit Psychiatric exam: Present: normal affect, normal mood Skin exam: Present: warm, dry, intact. Absent: cyanosis, diaphoretic Course Vital Signs 05/11/23 05/11/23 05/11/23 18:39 18:42 19:00 Temperature 98.1 F Pulse Rate 160 H 160 H Respiratory 20 18 Rate Blood Pressure 101/76 101/76 O2 Sat by Pulse 96 97 Oximetry 05/11/23 19:30 Temperature Pulse Rate 79 Respiratory 18 Rate Blood Pressure O2 Sat by Pulse 97 Oximetry Medical Decision Making - Medical Decision Making Was pt. sent in by a medical professional or institution ([facility], CUSTODIAL AIDE, urgent care, hospital, or half-way...) When possible be specific @ -[No] Did you speak to anyone other than the patient for history (EMS, parent, family, police, friend...)? What history was obtained from this source @ -[No] Did you review nursing and triage notes (agree or disagree)? Why? @ -[I reviewed and agree with nursing and triage notes] Were old charts reviewed (outside hosp., previous admission, EMS record, old EKG, old radiological studies, urgent care reports/EKG's, half-way records)? Report findings @ -[No old charts were reviewed] Differential Diagnosis (chest pain, altered mental status, abdominal pain women, abdominal pain men, vaginal bleeding, weakness, fever, dyspnea, syncope, headache, dizziness, GI bleed, back pain, seizure, CVA, palpatations, mental health, musculoskeletal)? @ Differential Palpitations Ventricular arrhythmias, atrial arrhythmias, myocardial infarction, anemia, thyrotoxicosis, electrolyte imbalance, hypokalemia, pulmonary embolism, pulmonary disease, drugs, alcohol, anxiety, stress.... This is not meant to be an all-inclusive list. EKG interpreted by me (3pts min.). @ EKG: Atrial flutter with 2-1 conduction rate of 160, QRS duration 88, QTC 364, no ST segment elevation. X-rays interpreted by me (1pt min.). @ -Chest x-ray negative for acute cardiac or follow with Meng CT interpreted by me (1pt min.). @ -[None done] U/S interpreted by me (1pt. min.). @ -[None done] What testing was considered but not performed or refused? (CT, X-rays, U/S, labs)? Why? @ -[None] What meds were considered but not given or refused? Why? @ -[None] Did you discuss the management of the patient with other professionals (professionals i.e. , PA, CUSTODIAL AIDE, lab, RT, psych nurse, child welfare social worker, oracle soa developer, teacher, disbursing officer, showcase maker)? Give summary @ -[No] Was smoking cessation discussed for >3mins.? @ -[No] Was critical care preformed (if so, how long)? @ -Yes, 35 minutes Were there social determinants of health that impacted care today? How? (Homelessness, low income, unemployed, alcoholism, drug addiction, tr ansportation, low edu. Level, literacy, decrease access to med. care, assisted, rehab)? @ -[No] Was there de-escalation of care discussed even if they declined (Discuss DNR or withdrawal of care, Hospice)? DNR status @ -[No] What co-morbidities impacted this encounter? (DM, HTN, Smoking, COPD, CAD, Cancer, CVA, ARF, Chemo, Hep., AIDS, mental health diagnosis, sleep apnea, morbid obesity)? @ -Hypertension Was patient admitted / discharged? Hospital course, mention meds given and route, prescriptions, significant lab abnormalities, going to OR and other pertinent info. @ -[72 -year-old female presenting with palpitations and chest tightness. Patient is in atrial flutter with 21 conduction rate of 160. She is on Coreg and has not taken her nighttime dose. She states she's had issues with palpitations in the past but has never been formally diagnosed with atrial fibrillation flutter. Patient has a normal CBC, normal CMP, negative troponin. TSH pending. Patient continued on Cardizem and started on heparin in the emergency department. She will be admitted with cardiology on consult. Echo has been ordered. Undiagnosed new problem with uncertain prognosis? @ -[No] Drug Therapy requiring intensive monitoring for toxicity (Heparin, Nitro, Insulin, Cardizem)? @ -[No] Were any procedures done? @ -[No] Diagnosis/symptom? @ -[default] Acute, or Chronic, or Acute on Chronic? @ -[default] Uncomplicated (without systemic symptoms) or Complicated (systemic symptoms)? @ -[default] Side effects of treatment? @ -[No] Exacerbation, Progression, or Severe Exacerbation? @ -[No] Poses a threat to life or bodily function? How? (Chest pain, [place], [place], pneumonia, PE, COPD, DKA, ARF, appy, cholecystitis, CVA, Diverticulitis, Homicidal, [place] le[place], threat to staff... and all critical care pts) @ -[No] - Lab Data Result diagrams: 05/11/23 18:56 05/11/23 18:56 Lab Results 05/11/23 05/11/23 05/11/23 Range/Units 18:56 18:56 18:56 WBC 8.4 (3.8-10.6) k/uL RBC 4.52 (3.80-5.40) m/uL Hgb 13.5 (11.4-16.0) gm/dL Hct 41.2 (34.0-46.0) % MCV 91.1 (80.0-100.0) fL MCH 29.9 (25.0-35.0) pg MCHC 32.8 (31.0-37.0) g/dL RDW 13.6 (11.5-15.5) % Plt Count 215 (150-450) k/uL MPV 9.6 Neutrophils % 69 % Lymphocytes % 20 % Monocytes % 6 % Eosinophils % 3 % Basophils % 0 % Neutrophils # 5.8 (1.3-7.7) k/uL Lymphocytes # 1.7 (1.0-4.8) k/uL Monocytes # 0.5 (0-1.0) k/uL Eosinophils # 0.3 (0-0.7) k/uL Basophils # 0.0 (0-0.2) k/uL PT 10.0 (9.0-12.0) sec INR 0.9 (<1.2) APTT 23.5 (22.0-30.0) sec Sodium 137 (137-145) mmol/L Potassium 4.6 (3.5-5.1) mmol/L Chloride 108 H (98-107) mmol/L Carbon Dioxide 20 L (22-30) mmol/L Anion Gap 9 mmol/L BUN 24 H (7-17) mg/dL Creatinine 1.08 H (0.52-1.04) mg/dL Est GFR (CKD-EPI)AfAm 59 (>60 ml/min/1.73 sqM) Est GFR (CKD-EPI)NonAf 51 (>60 ml/min/1.73 sqM) Glucose 107 H (74-99) mg/dL Calcium 9.5 (8.4-10.2) mg/dL Magnesium 2.1 (1.6-2.3) mg/dL Total Bilirubin 0.4 (0.2-1.3) mg/dL AST 26 (14-36) U/L ALT 24 (4-34) U/L Alkaline Phosphatase 93 (38-126) U/L Troponin I (0.000-0.034) ng/mL Total Protein 6.1 L (6.3-8.2) g/dL Albumin 3.6 (3.5-5.0) g/dL 05/11/23 Range/Units 18:56 WBC (3.8-10.6) k/uL RBC (3.80-5.40) m/uL Hgb (11.4-16.0) gm/dL Hct (34.0-46.0) % MCV (80.0-100.0) fL MCH (25.0-35.0) pg MCHC (31.0-37.0) g/dL RDW (11.5-15.5) % Plt Count (150-450) k/uL MPV Neutrophils % % Lymphocytes % % Monocytes % % Eosinophils % % Basophils % % Neutrophils # (1.3-7.7) k/uL Lymphocytes # (1.0-4.8) k/uL Monocytes # (0-1.0) k/uL Eosinophils # (0-0.7) k/uL Basophils # (0-0.2) k/uL PT (9.0-12.0) sec INR (<1.2) APTT (22.0-30.0) sec Sodium (137-145) mmol/L Potassium (3.5-5.1) mmol/L Chloride (98-107) mmol/L Carbon Dioxide (22-30) mmol/L Anion Gap mmol/L BUN (7-17) mg/dL Creatinine (0.52-1.04) mg/dL Est GFR (CKD-EPI)AfAm (>60 ml/min/1.73 sqM) Est GFR (CKD-EPI)NonAf (>60 ml/min/1.73 sqM) Glucose (74-99) mg/dL Calcium (8.4-10.2) mg/dL Magnesium (1.6-2.3) mg/dL Total Bilirubin (0.2-1.3) mg/dL AST (14-36) U/L ALT (4-34) U/L Alkaline Phosphatase (38-126) U/L Troponin I 0.017 (0.000-0.034) ng/mL Total Protein (6.3-8.2) g/dL Albumin (3.5-5.0) g/dL Critical Care Time Critical Care Time: Yes Total Critical Care Time: 35 Disposition Clinical Impression: Chest pain, Atrial flutter, Atrial flutter with rapid ventricular response Disposition: ADMITTED IP TO THIS HOSP Condition: Stable Is patient prescribed a controlled substance at d/c from ED?: No Referrals: Chintan Fritz MD [Primary Care Provider] - 1-2 days Time of Disposition: 20:26
[2023-05-11 19:14] LABS: Basophils % (A) 0 %; Eosinophils # (A) 0.3 k/uL (0-0.7); Eosinophils % (A) 3 %; HCT 41.2 % (34.0-46.0); HGB 13.5 gm/dL (11.4-16.0); Lymphocytes # (A) 1.7 k/uL (1.0-4.8); Lymphocytes % (A) 20 %; MCH 29.9 pg (25.0-35.0); MCHC 32.8 g/dL (31.0-37.0); MCV 91.1 fL (80.0-100.0); Mean Platelet Volume 9.6; Monocytes # (A) 0.5 k/uL (0-1.0); Monocytes % (A) 6 %; Neutrophils # (A) 5.8 k/uL (1.3-7.7); Neutrophils % (A) 69 %; Platelet Count 215 k/uL (150-450); RBC 4.52 m/uL (3.80-5.40); RDW 13.6 % (11.5-15.5); WBC 8.4 k/uL (3.8-10.6)
[2023-05-11 19:23] LABS: INR 0.9 (<1.2); Partial Thromboplastin Time 23.5 sec (22.0-30.0)
--- NOTE | 2023-05-11 19:30 | XR ---
EXAMINATION TYPE: XR chest 2V DATE OF EXAM: 05/11/2023 7:12 PM CLINICAL INDICATION:Female, 72 years old with history of dysrhythmia; H COMPARISON: Chest radiographs from 01/03/2023 TECHNIQUE: XR chest 2V Frontal and lateral views of the chest. FINDINGS: Lungs/Pleura: There is no evidence of pleural effusion, focal consolidation, or pneumothorax. Pulmonary vascularity: Unremarkable. Heart/mediastinum: Cardiomediastinal silhouette is prominent in size. Musculoskeletal: No acute osseous pathology. Other findings: None Lines/Tubes: IMPRESSION: Low lung volumes with a generalized hazy appearance which could represent atelectasis. No significant change from prior.
[2023-05-11 19:51] LABS: ALT 24 U/L (4-34); AST 26 U/L (14-36); African American GFR (CKD) 59 (>60 ml/min/1.73 sqM); Albumin 3.6 g/dL (3.5-5.0); Alkaline Phosphatase 93 U/L (38-126); Anion Gap 9 mmol/L; Blood Urea Nitrogen 24 mg/dL (7-17); Calcium 9.5 mg/dL (8.4-10.2); Carbon Dioxide 20 mmol/L (22-30); Chloride 108 mmol/L (98-107); Glucose 107 mg/dL (74-99); Magnesium 2.1 mg/dL (1.6-2.3); Non-African American GFR(CKD) 51 (>60 ml/min/1.73 sqM); Potassium 4.6 mmol/L (3.5-5.1); Sodium 137 mmol/L (137-145); Total Bilirubin 0.4 mg/dL (0.2-1.3); Total Protein 6.1 g/dL (6.3-8.2)
[2023-05-11] MEDS ORDERED: HEPARIN SODIUM 1,000 UN/ML (10ML VL) IV PRN (20:01)
[2023-05-11] MEDS ORDERED: HEPARIN SODIUM 1,000 UN/ML (10ML VL) IV ONE (20:01)
[2023-05-11] MEDS ORDERED: HEPARIN SOD,PORK IN 0.45% NACL 25,000 UNIT in 0.45% NACL 1 250ML.BAG IV SCH (20:15)
[2023-05-11] MEDS ORDERED: ACETAMINOPHEN TAB 325 MG TAB PO PRN (20:21)
[2023-05-11] MEDS ORDERED: NALOXONE 0.4 MG/ML 1 ML VIAL IV PRN (20:21)
[2023-05-11] MEDS ORDERED: ONDANSETRON 4 MG/2 ML VIAL IVP PRN (20:21)
--- NOTE | 2023-05-12 02:18 | P.HPIM ---
History of Present Illness H&P Date: 05/11/23 Patient is a 72-year-old female with a PMH of A. fib not on anticoagulation, CAD with MIs, hypertension, and hyperlipidemia who presents to the emergency room with complaints of palpitations and shortness of breath. The patient reports that her symptoms started this afternoon with sudden onset of palpitations. She denied experiencing chest discomfort, nausea, vomiting, diaphoresis, or dizziness. Also denied fever, chills, cough. Reports that her palpitations are resolved at time of interview. She reports previously being on "blood thinners" for A. fib and flutter but could not recall the name. Medication list is reconciled did not have any anticoagulants listed. In the emergency room, EKG revealed a flutter with 2:1 conduction at 160 bpm as reviewed by me. Chest x-ray was unremarkable. Laboratory evaluation revealed a troponin of 0.017, TSH 3.08, BUN 24, creatinine 1.08. Repeat troponin was 0.089 ED documentation reviewed and case discussed with ED provider. Review of systems: Pertinent positives and negatives as discussed in HPI, a complete review of systems was performed and all other systems are negative. Physical examination: Vital signs reviewed General: non toxic, no distress, appears at stated age, obese Derm: no unusual rashes/lesions, warm Head: atraumatic, normocephalic, symmetric Eyes: EOMI, no lid lag, anicteric sclera, pupils equal round reactive to light ENT: Nose and ears atraumatic Neck: No cervical lymphadenopathy, trachea midline, supple Mouth: no lip lesion, mucus membranes moist Cardiovascular: S1S2 reg, no murmur, positive dorsalis pedis pulse bilateral, no edema Lungs: CTA bilateral, no rhonchi, no rales, no accessory muscle use Abdominal: soft, nontender to palpation, no guarding Ext: muscle strength 5 out of 5 in all 4 extremities grossly, no gross muscle atrophy, no contractures, Neuro: CN II-XI grossly intact, no gross focal neuro deficits Psych: Alert, oriented, appropriate affect Assessment: A flutter with RVR Elevated troponin, suspect secondary to ongoing a flutter, patient denying chest discomfort Chronic conditions: Hypertension, CAD, hyperlipidemia Imaging: In the emergency room, EKG revealed a flutter with 2:1 conduction at 160 bpm as reviewed by me. Chest x-ray was unremarkable. Data Review: Laboratory evaluation revealed a troponin of 0.017, TSH 3.08, BUN 24, creatinine 1.08. Repeat troponin was 0.089 Plan: Continue Cardizem infusion and heparin infusion Cardiac monitoring Cardiology consulted Monitor APTT levels Echocardiogram Increase the patient's home Coreg dose to 25 mg by mouth twice a day from 12.5 Resume the following home medications: -Losartan 100 mg by mouth daily -Imdur 30 mg by mouth daily -Lipitor 20 mg by mouth daily at bedtime -Aspirin 81 mg by mouth daily DVT prophylaxis: Heparin infusion The patient is admitted with an anticipated greater than 2 midnight stay for evaluation of a flutter CODE STATUS: Full Code Discussed with: Patient Anticipated discharge place: Home Past Medical History Past Medical History: Atrial Fibrillation, Hyperlipidemia, Hypertension, Myocardial Infarction ([place]), Sleep Apnea/CPAP/BIPAP Additional Past Medical History / Comment(s): uses cpap Last Myocardial Infarction Date:: 04/2020 History of Any Multi-Drug Resistant Organisms: None Reported Past Surgical History: Heart Catheterization Past Anesthesia/Blood Transfusion Reactions: No Reported Reaction Additional Past Anesthesia/Blood Transfusion Reaction / Comment(s): no known of hx blood transfusion Past Psychological History: No Psychological Hx Reported Smoking Status: Former smoker Past Alcohol Use History: Occasional Additional Past Alcohol Use History / Comment(s): quit smoking at age 42,started smoking at age 19s,social smoker Past Drug Use History: None Reported - Past Family History Mother Additional Family Medical History / Comment(s): Low blood pressure Father Family Medical History: COPD Medications and Allergies Home Medications Medication Instructions Recorded Confirmed Type Nitroglycerin Sl Tabs [Nitrostat] 0.4 mg SL Q5M PRN 12/27/20 05/11/23 History Ferrous Sulfate [Feosol] 325 mg PO DAILY 06/22/22 05/11/23 History Isosorbide Mononitrate ER [Imdur] 30 mg PO DAILY 06/22/22 05/11/23 History Cholecalciferol [Vitamin D3 (25 50 mcg PO DAILY 12/20/22 05/11/23 History Mcg = 1000 Iu)] Atorvastatin [Lipitor] 20 mg PO HS 12/25/22 05/11/23 History Aspirin EC [Ecotrin Low Dose] 81 mg PO DAILY 05/11/23 05/11/23 History Losartan Potassium 100 mg PO DAILY 05/11/23 05/11/23 History carvediloL [Coreg] 12.5 mg PO BID 05/11/23 05/11/23 History Allergies Allergy/AdvReac Type Severity Reaction Status Date / Time No Known Allergies Allergy Verified 05/11/23 19:21 Physical Exam Vitals: Vital Signs Temp Pulse Pulse Resp BP BP Pulse Ox 05/11/23 22:10 97.8 F 73 20 156/82 99 05/11/23 22:00 71 18 140/91 96 05/11/23 21:30 72 19 143/89 94 L 05/11/23 20:30 84 18 145/88 96 05/11/23 20:00 18 116/65 96 05/11/23 19:30 79 18 97 05/11/23 19:00 160 H 18 101/76 97 05/11/23 18:42 98.1 F 05/11/23 18:39 160 H 20 101/76 96 Intake and Output 05/11/23 05/11/23 05/12/23 14:59 22:59 06:59 Output Total 200 Balance -200 Output: Urine 200 Other: Weight 86.183 kg Results CBC & Chem 7: 05/11/23 18:56 05/11/23 18:56 Labs: Abnormal Lab Results - Last 24 Hours (Table) 05/11/23 05/11/23 Range/Units 18:56 21:46 Chloride 108 H (98-107) mmol/L Carbon Dioxide 20 L (22-30) mmol/L BUN 24 H (7-17) mg/dL Creatinine 1.08 H (0.52-1.04) mg/dL Glucose 107 H (74-99) mg/dL Troponin I 0.089 H* (0.000-0.034) ng/mL Total Protein 6.1 L (6.3-8.2) g/dL Thrombosis Risk Factor Assmnt - Choose All That Apply Any of the Below Risk Factors Present?: Yes Each Factor Represents 1 point: Medical pt on bed rest, Obesity (BMI >25), Swollen legs (current) Each Risk Factor Represents 2 Points: Age 61-74 years Other congenital or acquired thrombophilia - If yes, enter type in comment: No Thrombosis Risk Factor Assessment Total Risk Factor Score: 5 Thrombosis Risk Factor Assessment Level: High Risk
[2023-05-12 04:03] LABS: Basophils % (A) 0 %; Eosinophils # (A) 0.2 k/uL (0-0.7); Eosinophils % (A) 3 %; HCT 38.1 % (34.0-46.0); HGB 12.7 gm/dL (11.4-16.0); Lymphocytes # (A) 2.1 k/uL (1.0-4.8); Lymphocytes % (A) 37 %; MCH 30.4 pg (25.0-35.0); MCHC 33.3 g/dL (31.0-37.0); MCV 91.5 fL (80.0-100.0); Mean Platelet Volume 9.5; Monocytes # (A) 0.4 k/uL (0-1.0); Monocytes % (A) 7 %; Neutrophils # (A) 2.9 k/uL (1.3-7.7); Neutrophils % (A) 51 %; Platelet Count 160 k/uL (150-450); RBC 4.16 m/uL (3.80-5.40); RDW 13.8 % (11.5-15.5); WBC 5.7 k/uL (3.8-10.6)
[2023-05-12 04:20] LABS: Prothrombin Time 10.3 sec (9.0-12.0)
[2023-05-12 04:27] LABS: Partial Thromboplastin Time 112.3 sec (22.0-30.0)
[2023-05-12] MEDS: ISOSORBIDE MONONITRATE ER 30 MG TAB.ER.24H PO SCH (09:39)
[2023-05-12] MEDS: LOSARTAN 50 MG TAB PO SCH (09:39)
[2023-05-12] MEDS: ASPIRIN 81 MG PO SCH (09:39)
[2023-05-12] MEDS: carvediloL 12.5 MG TAB PO SCH ×2 (09:39→20:05)
[2023-05-12] MEDS: DILTIAZEM ORAL 30 MG TAB PO SCH ×3 (10:24→20:05)
--- NOTE | 2023-05-12 11:00 | P.CRDCN ---
History of Present Illness History of present illness: HISTORY OF PRESENT ILLNESS: This is a 72-year-old female with a past medical history significant for hypertension, hyperlipidemia, SVT, and anxiety. Patient follows in the office with Dr. Arechiga. We have been asked to see the patient in consultation for atrial flutter. Patient examined at the bedside. Patient presented to the hospital with chief complaint of palpitations. Patient was found to be in SVT. Initial EKG on arrival revealed possible atrial flutter and patient was started on IV heparin and IV Cardizem. This morning she is maintaining sinus mechanism. She denies chest pain or pressure. She denies shortness of breath. It is noted that when the patient saw Dr. Chew in the office in January 2023 he discussed with her about referral to EP and ablation. However patient states she does not remember talking about this and has not been evaluated by an EP physician. Additionally, there is documentation that the patient has a history of atrial fibrillation. When this was discussed with the patient this morning she states that she was told by the ER physician, Dr. Benjamin, yesterday that she has atrial fibrillation. She states that she has not been told prior to this that she has atrial fibrillation. She is not prescribed anticoagulation on an outpatient basis. * EKG reveals AVNRT * Chest xray low lung volumes with a generalized hazy appearance which could represent atelectasis. * Current home cardiac medications include atorvastatin 20 mrem at night, aspirin 81 mg daily, Imdur 30 mg daily, losartan 100 mg daily, and carvedilol 12.5 F twice a day. * Most recent echocardiogram obtained in December 2020 revealed ejection fraction 55%, mild MR, mild TR * Cardiac catheterization history: April 2020 revealing normal coronary arteries REVIEW OF SYSTEMS: At the time of my exam: CONSTITUTIONAL: Denies fever or chills. HEENT: Denies blurred vision, vision changes, or eye pain. Denies hemoptysis CARDIOVASCULAR: Denies chest pain. Denies orthopnea. Denies PND. Denies palpitations RESPIRATORY: Denies shortness of breath. GASTROINTESTINAL: Denies abdominal pain. Denies nausea or vomiting. HEMATOLOGIC: Denies bleeding disorders. GENITOURINARY: Denies any blood in urine. SKIN: Denies pruitis. Denies rash. PHYSICAL EXAM: VITAL SIGNS: Reviewed. GENERAL: Well-developed in no acute distress. HEENT: Head is normocephalic. Pupils are equal, round. Sclerae anicteric. Mucous membranes of the mouth are moist. Neck supple. No JVD or thyromegaly LUNGS: Respirations even and unlabored. Lungs essentially clear to auscultation bilaterally. HEART: Regular rate and rhythm. S1 and S2 heard. ABDOMEN: Soft. Nondistended. Nontender. EXTREMITIES: Normal range of motion. No clubbing or cyanosis. Peripheral pulses intact. No lower extremity edema NEUROLOGIC: Awake and alert. Oriented x 3. ASSESSMENT: Palpitations Paroxysmal AVNRT Elevated troponins, suspect secondary to above, no evidence of acute coronary syndrome History of SVT, recommended to have an EP evaluation and ablation on an outpatient basis Hypertension Hyperlipidemia Anxiety Normal coronary arteries, per cardiac catheterization in 2019 PLAN: 2-D echo has been ordered. Await results. No evidence of atrial flutter or fibrillation at this time. Discontinue IV heparin Continue home cardiac medications Continue current dose of carvedilol Add Cardizem 30 mg 3 times a day Continue telemetry monitoring Reinforced with patient that she needs to have EP evaluation for possible ablation on an outpatient basis. Patient verbalized understanding. Further recommendations pending patient course Nurse practitioner note has been reviewed by physician. Signing provider agrees with the documented findings, assessment, and plan of care. Past Medical History Past Medical History: Atrial Fibrillation, Hyperlipidemia, Hypertension, Myocardial Infarction (CT), Sleep Apnea/CPAP/BIPAP Additional Past Medical History / Comment(s): uses cpap Last Myocardial Infarction Date:: 04/2020 History of Any Multi-Drug Resistant Organisms: None Reported Past Surgical History: Heart Catheterization Past Anesthesia/Blood Transfusion Reactions: No Reported Reaction Additional Past Anesthesia/Blood Transfusion Reaction / Comment(s): no known of hx blood transfusion Past Psychological History: No Psychological Hx Reported Smoking Status: Former smoker Past Alcohol Use History: Occasional Additional Past Alcohol Use History / Comment(s): quit smoking at age 42,started smoking at age 19s,social smoker Past Drug Use History: None Reported - Past Family History Mother Additional Family Medical History / Comment(s): Low blood pressure Father Family Medical History: COPD Medications and Allergies Home Medications Medication Instructions Recorded Confirmed Type Nitroglycerin Sl Tabs [Nitrostat] 0.4 mg SL Q5M PRN 12/27/20 05/11/23 History Ferrous Sulfate [Feosol] 325 mg PO DAILY 11/18/22 10/07/23 History Isosorbide Mononitrate ER [Imdur] 30 mg PO DAILY 06/22/22 05/11/23 History Cholecalciferol [Vitamin D3 (25 50 mcg PO DAILY 12/20/22 05/11/23 History Mcg = 1000 Iu)] Atorvastatin [Lipitor] 20 mg PO HS 12/25/22 05/11/23 History Aspirin EC [Ecotrin Low Dose] 81 mg PO DAILY 05/11/23 05/11/23 History Losartan Potassium 100 mg PO DAILY 05/11/23 05/11/23 History carvediloL [Coreg] 12.5 mg PO BID 05/11/23 05/11/23 History Allergies Allergy/AdvReac Type Severity Reaction Status Date / Time No Known Allergies Allergy Verified 05/11/23 19:21 Physical Exam Vitals: Vital Signs Temp Pulse Pulse Resp BP BP Pulse Ox 05/12/23 09:28 98.0 F 73 18 145/83 94 L 05/12/23 08:56 97 05/12/23 03:22 98.1 F 64 18 150/80 98 05/11/23 22:10 97.8 F 73 20 156/82 99 05/11/23 22:00 71 18 140/91 96 05/11/23 21:30 72 19 143/89 94 L 05/11/23 20:30 84 18 145/88 96 05/11/23 20:00 18 116/65 96 05/11/23 19:30 79 18 97 05/11/23 19:00 160 H 18 101/76 97 05/11/23 18:42 98.1 F 05/11/23 18:39 160 H 20 101/76 96 FiO2 05/12/23 09:28 05/12/23 08:56 21 05/12/23 03:22 05/11/23 22:10 05/11/23 22:00 05/11/23 21:30 05/11/23 20:30 05/11/23 20:00 05/11/23 19:30 05/11/23 19:00 05/11/23 18:42 05/11/23 18:39 Intake and Output 05/11/23 05/12/23 05/12/23 22:59 06:59 14:59 Intake Total 82.142 Output Total 200 800 200 Balance -200 -717.858 -200 Intake: Intake, IV Titration 82.142 Amount Heparin Sod,Pork in 0.45% 82.142 NaCl 25,000 unit In 0.45 % NaCl 1 250ml.bag @ 11.6 UNITS/KG/HR 9.997 mls/hr IV .Q24H [facility] Rx#: [id number] Output: Urine 200 800 200 Other: Voiding Method Toilet Weight 86.183 kg 90 kg Results 05/12/23 03:19 05/11/23 18:56 Cardiac Enzymes 05/11/23 05/11/23 05/11/23 Range/Units 18:56 18:56 21:46 AST 26 (14-36) U/L Troponin I 0.017 0.089 H* (0.000-0.034) ng/mL 05/12/23 Range/Units 03:19 AST (14-36) U/L Troponin I 0.108 H* (0.000-0.034) ng/mL Coagulation 05/11/23 05/12/23 Range/Units 18:56 03:19 PT 10.0 10.3 (9.0-12.0) sec APTT 23.5 112.3 H* (22.0-30.0) sec CBC 05/11/23 05/12/23 Range/Units 18:56 03:19 WBC 8.4 5.7 (3.8-10.6) k/uL RBC 4.52 4.16 (3.80-5.40) m/uL Hgb 13.5 12.7 (11.4-16.0) gm/dL Hct 41.2 38.1 (34.0-46.0) % Plt Count 215 160 (150-450) k/uL Comprehensive Metabolic Panel 05/11/23 Range/Units 18:56 Sodium 137 (137-145) mmol/L Potassium 4.6 (3.5-5.1) mmol/L Chloride 108 H (98-107) mmol/L Carbon Dioxide 20 L (22-30) mmol/L BUN 24 H (7-17) mg/dL Creatinine 1.08 H (0.52-1.04) mg/dL Glucose 107 H (74-99) mg/dL Calcium 9.5 (8.4-10.2) mg/dL AST 26 (14-36) U/L ALT 24 (4-34) U/L Alkaline Phosphatase 93 (38-126) U/L Total Protein 6.1 L (6.3-8.2) g/dL Albumin 3.6 (3.5-5.0) g/dL Current Medications Generic Name Dose Route Start Last Admin Trade Name Freq PRN Reason Stop Dose Admin Acetaminophen 650 mg 05/11/23 20:21 Acetaminophen Tab 325 Mg Tab PO Q6HR PRN Mild Pain or Fever > 100.5 Aspirin 81 mg 05/12/23 09:00 05/12/23 09:39 Aspirin 81 Mg PO 81 mg DAILY ANETTE Administration Atorvastatin Calcium 20 mg 05/12/23 21:00 Atorvastatin 20 Mg Tab PO HS [facility] Carvedilol 25 mg 05/12/23 09:00 10 09:39 Carvedilol 12.5 Mg Tab PO 25 mg BID ANETTE Administration Diltiazem HCl 30 mg 05/12/23 10:30 05/12/23 10:24 Diltiazem Oral 30 Mg Tab PO 30 mg TID [facility] Administration Heparin Sodium (Porcine) 0 unit 05/11/23 20:01 Heparin Sodium 1,000 Un/Ml (10ml Vl) IV PER PROTOCOL PRN Low PTT Protocol Isosorbide Mononitrate 30 mg 05/12/23 09:00 05/12/23 09:39 Isosorbide Mononitrate Er 30 Mg Tab.Er.24h PO 30 mg DAILY ANETTE Administration Losartan Potassium 100 mg 05/12/23 09:00 05/12/23 09:39 Losartan 50 Mg Tab PO 100 mg DAILY ANETTE Administration Naloxone HCl 0.2 mg 05/11/23 20:21 Naloxone 0.4 Mg/Ml 1 Ml Vial IV Q2M PRN Opioid Reversal Ondansetron HCl 4 mg 05/11/23 20:21 Ondansetron 4 Mg/2 Ml Vial IVP Q8HR PRN Nausea And Vomiting Intake and Output 05/11/23 05/12/23 05/12/23 22:59 06:59 14:59 Intake Total 82.142 Output Total 200 800 200 Balance -200 -717.858 -200 Intake: Intake, IV Titration 82.142 Amount Heparin Sod,Pork in 0.45% 82.142 NaCl 25,000 unit In 0.45 % NaCl 1 250ml.bag @ 11.6 UNITS/KG/HR 9.997 mls/hr IV .Q24H [facility] Rx#: [id number] Output: Urine 200 800 200 Other: Voiding Method Toilet Weight 86.183 kg 90 kg 05/12/23 03:19 05/11/23 18:56
--- NOTE | 2023-05-12 14:32 | P.PN ---
Subjective Progress Note Date: 05/12/23 Hospital Course: 72-year-old female with a PMH of ASotero taylor not on anticoagulation, CAD with MIs, hypertension, and hyperlipidemia who presents to the emergency room with complaints of palpitations and shortness of breath. In the emergency room, EKG revealed SVT. Chest x-ray was unremarkable. Laboratory evaluation revealed a troponin of 0.017, TSH 3.08, BUN 24, creatinine 1.08. Repeat troponin was 0.089. Cardiology consulted. Subjective: Patient seen and examined at bedside. No acute events overnight. Denies any further palpitations. Pertinent positives and negatives as discussed above, a complete review of systems was performed and all other systems are negative. Vitals Signs Reviewed. General: nontoxic, no distress, appears at stated age Derm: warm, dry Head: atraumatic, normocephalic, symmetric Eyes: EOMI, no lid lag, anicteric sclera Mouth: no lip lesion, mucus membranes moist Cardiovascular: S1S2 reg, no murmur Lungs: CTA bilateral, no rhonchi, no rales , no accessory muscle use Abdominal: soft, nontender to palpation, no guarding, no appreciable organom egaly Ext: no gross muscle atrophy, no edema, no contractures Neuro: CN II-XI grossly intact, no focal neuro deficits Psych: Alert, oriented, anxious. Data Reviewed Today: Pertinent Labs: WBC 5.7, hemoglobin 12.7, troponin elevated to 0.108 Imaging: No new imaging Assessment and Plan: Active: Supraventricular tachycardia, likely AVNRT, currently in sinus rhythm History of SVT, no prior ablation NSTEMI, likely type 2 -Radiology reviewed, increase Coreg, also started on Cardizem, will likely need outpatient ablation -No need for anticoagulation - echocardiogram, pending -Continue telemetry -Likely discharge tomorrow Chronic: Hypertension Dyslipidemia DVT ppx: Subcu heparin Code status: Full code Anticipated discharge place: Home Anticipated discharge time: Likely tomorrow Objective - Vital Signs Vital signs: Vital Signs Temp 98.1 F 05/12/23 11:24 Pulse 67 05/12/23 11:24 Resp 18 05/12/23 11:24 BP 107/66 05/12/23 11:24 Pulse Ox 92 L 05/12/23 11:24 FiO2 21 05/12/23 08:56 Intake & Output 05/11/23 05/12/23 05/12/23 18:59 06:59 18:59 Intake Total 82.142 410 Output Total 1000 600 Balance -917.858 -190 Weight 86.183 kg 90 kg Intake: IV 10 Invasive Line 1 10 Intake, IV Titration 82.142 Amount Heparin Sod,Pork in 0.45% 82.142 NaCl 25,000 unit In 0.45 % NaCl 1 250ml.bag @ 11.6 UNITS/KG/HR 9.997 mls/hr IV .Q24H [facility] Rx#: [id number] Oral 400 Output: Urine 1000 600 Other: Voiding Method Toilet - Labs CBC & Chem 7: 05/12/23 03:19 05/11/23 18:56 Labs: Abnormal Lab Results - Last 24 Hours (Table) 05/11/23 05/11/23 05/12/23 Range/Units 18:56 21:46 03:19 APTT 112.3 H* (22.0-30.0) sec Chloride 108 H (98-107) mmol/L Carbon Dioxide 20 L (22-30) mmol/L BUN 24 H (7-17) mg/dL Creatinine 1.08 H (0.52-1.04) mg/dL Glucose 107 H (74-99) mg/dL Troponin I 0.089 H* (0.000-0.034) ng/mL Total Protein 6.1 L (6.3-8.2) g/dL 05/12/23 Range/Units 03:19 APTT (22.0-30.0) sec Chloride (98-107) mmol/L Carbon Dioxide (22-30) mmol/L BUN (7-17) mg/dL Creatinine (0.52-1.04) mg/dL Glucose (74-99) mg/dL Troponin I 0.108 H* (0.000-0.034) ng/mL Total Protein (6.3-8.2) g/dL
[2023-05-12] MEDS: HEPARIN SODIUM,PORCINE 5,000 UNIT/ML 1 ML VIAL SQ SCH ×2 (15:15→23:53)
[2023-05-12] MEDS ORDERED: ATORVASTATIN 20 MG TAB PO SCH (21:00)
[2023-05-13] MEDS: ISOSORBIDE MONONITRATE ER 30 MG TAB.ER.24H PO SCH (08:08)
[2023-05-13] MEDS: ASPIRIN 81 MG PO SCH (08:08)
[2023-05-13] MEDS: carvediloL 12.5 MG TAB PO SCH (08:08)
[2023-05-13] MEDS: DILTIAZEM ORAL 30 MG TAB PO SCH (08:08)
[2023-05-13] MEDS: LOSARTAN 50 MG TAB PO SCH (08:08)
[2023-05-13] MEDS: HEPARIN SODIUM,PORCINE 5,000 UNIT/ML 1 ML VIAL SQ SCH (08:09)
[2023-05-13 09:33] VITALS: RESP 17; TEMP 98.5
[2023-05-13 12:51] VITALS: BP 129/81; PULSE 62
[2023-05-13 13:00] LABS: African American GFR (CKD) 81 (>60 ml/min/1.73 sqM); Anion Gap 6 mmol/L; Blood Urea Nitrogen 15 mg/dL (7-17); Calcium 8.7 mg/dL (8.4-10.2); Carbon Dioxide 24 mmol/L (22-30); Chloride 106 mmol/L (98-107); Glucose 85 mg/dL (74-99); Non-African American GFR(CKD) 71 (>60 ml/min/1.73 sqM); Potassium 4.3 mmol/L (3.5-5.1); Sodium 136 mmol/L (137-145)
--- NOTE | 2023-05-13 14:29 | P.PN ---
Subjective Progress Note Date: 05/13/23 HISTORY OF PRESENT ILLNESS: This is a 72-year-old female with a past medical history significant for hy pertension, hyperlipidemia, SVT, and anxiety. Patient follows in the office with Dr. Arechiga. We have been asked to see the patient in consultation for atrial flutter. Patient examined at the bedside. Patient presented to the hospital with chief complaint of palpitations. Patient was found to be in SVT. Initial EKG on arrival revealed possible atrial flutter and patient was started on IV heparin and IV Cardizem. This morning she is maintaining sinus mechanism. She denies chest pain or pressure. She denies shortness of breath. It is noted that when the patient saw Dr. Chew in the office in January 2023 he discussed with her about referral to EP and ablation. However patient states she does not remember talking about this and has not been evaluated by an EP physician. Additionally, there is documentation that the patient has a history of atrial fibrillation. When this was discussed with the patient this morning she states that she was told by the ER physician, Dr. Benjamin, yesterday that she has atrial fibrillation. She states that she has not been told prior to this that she has atrial fibrillation. She is not prescribed anticoagulation on an outpatient basis. * EKG reveals AVNRT * Chest xray low lung volumes with a generalized hazy appearance which could represent atelectasis. * Current home cardiac medications include atorvastatin 20 mrem at night, aspirin 81 mg daily, Imdur 30 mg daily, losartan 100 mg daily, and carvedilol 12.5 F twice a day. * Most recent echocardiogram obtained in December 2020 revealed ejection fraction 55%, mild MR, mild TR * Cardiac catheterization history: April 2020 revealing normal coronary arteries 05/13 Patient states that she has no issues and no issues overnight. She denies any shortness of breath no palpitations. She feels that she is back to normal. During her stay, Coreg was increased to 25 mg twice daily and Cardizem was added. She is in a sinus rhythm running in the 60s, blood pressure 129/81, pulse ox 96% on room air. Echocardiogram has been obtained but report is pending PHYSICAL EXAM: VITAL SIGNS: Reviewed. GENERAL: Well-developed in no acute distress. HEENT: Head is normocephalic. Pupils are equal, round. Sclerae anicteric. Mucous membranes of the mouth are moist. Neck supple. No JVD or thyromegaly LUNGS: Respirations even and unlabored. Lungs essentially clear to auscultation bilaterally. HEART: Regular rate and rhythm. S1 and S2 heard. EXTREMITIES: Normal range of motion. No clubbing or cyanosis. Peripheral pulses intact. No lower extremity edema NEUROLOGIC: Awake and alert. Oriented x 3. ASSESSMENT: Palpitations Paroxysmal AVNRT Elevated troponins, suspect secondary to above, no evidence of acute coronary syndrome History of SVT, recommended to have an EP evaluation and ablation on an outpatient basis Hypertension Hyperlipidemia Anxiety Normal coronary arteries, per cardiac catheterization in 2020 PLAN: Continue home cardiac medications Continue current dose of carvedilol Add Cardizem 30 mg 3 times a day Patient would benefit from EP evaluation for possible ablation on an outpatient basis. Patient verbalized understanding. Patient is cleared from cardiology for discharge and may follow-up with Dr. Jona Arechiga in 1-2 weeks. Nurse practitioner note has been reviewed by physician. Signing provider agrees with the documented findings, assessment, and plan of care. Objective - Vital Signs Vital signs: Vital Signs Temp 98.5 F 05/13/23 08:05 Pulse 63 05/13/23 08:05 Resp 17 05/13/23 08:05 BP 132/81 05/13/23 08:05 Pulse Ox 95 05/13/23 08:14 FiO2 21 05/12/23 08:56 Intake & Output 05/12/23 05/13/23 05/13/23 18:59 06:59 18:59 Intake Total 650 Output Total 600 200 Balance 50 -200 Weight 88.1 kg Intake: IV 10 Invasive Line 1 10 Oral 640 Output: Urine 600 200 Other: Voiding Method Toilet Toilet Toilet - Labs CBC & Chem 7: 05/12/23 03:19 05/13/23 11:41
--- NOTE | 2023-05-13 14:58 | P.DS ---
Providers Date of admission: 05/11/23 20:21 Expected date of discharge: 05/13/23 Attending physician: Wandy Draper MD Consults: 05/11/23 20:21 Consult Physician Routine Consulting Provider: Alec Mcnulty Consult Reason/Comments: New a-flutter RVR Do you want consulting provider notified?: Yes Primary care physician: Chintan [facility] Hospital Course: Discharge Diagnosis: Supraventricular tachycardia, likely AVNRT, currently in sinus rhythm History of SVT NSTEMI, likely type 2 Hypertension Dyslipidemia Hospital Course: 72-year-old female with a PMH of A. fib not on anticoagulation, CAD with MIs, hypertension, and hyperlipidemia who presents to the emergency room with complaints of palpitations and shortness of breath. In the emergency room, EKG revealed SVT. Chest x-ray was unremarkable. Laboratory evaluation revealed a troponin of 0.017, TSH 3.08, BUN 24, creatinine 1.08. Repeat troponin was 0.089. Cardiology consulted. Patient will likely benefit from outpatient ablation. Follow-up with cardiology outpatient. Patient seen and examined at bedside. Vital signs reviewed and stable. General: nontoxic, no distress, appears at stated age Derm: warm, dry Head: atraumatic, normocephalic, symmetric Eyes: EOMI, no lid lag, anicteric sclera Mouth: no lip lesion, mucus membranes moist Cardiovascular: S1S2 reg, no murmur Lungs: CTA bilateral, no rhonchi, no rales , no accessory muscle use Abdominal: soft, nontender to palpation, no guarding, no appreciable organomegaly Ext: no gross muscle atrophy, no edema, no contractures Neuro: CN II-XI grossly intact, no focal neuro deficits Psych: Alert, oriented, appropriate affect A total of 36 minutes of time were spent preparing this complex discharge summary. Patient was discharged on 05/13/23 at 14:33. Patient Condition at Discharge: Stable Plan - Discharge Summary Discharge Rx Participant: No New Discharge Prescriptions: New Diltiazem Oral [Cardizem*] 30 mg PO TID #90 tab Continue Ferrous Sulfate [Iron (65 MG Elemental)] 325 mg PO DAILY Isosorbide Mononitrate ER [Imdur] 30 mg PO DAILY Atorvastatin [Lipitor] 20 mg PO HS Losartan Potassium 100 mg PO DAILY carvediloL [Coreg] 12.5 mg PO BID Nitroglycerin Sl Tabs [Nitrostat] 0.4 mg SL Q5M PRN PRN Reason: Chest Pain Cholecalciferol [Vitamin D3 (25 Mcg = 1000 Iu)] 50 mcg PO DAILY Aspirin EC [Ecotrin Low Dose] 81 mg PO DAILY Discharge Medication List Nitroglycerin Sl Tabs [Nitrostat] 0.4 mg SL Q5M PRN 12/27/20 [History] Ferrous Sulfate [Iron (65 MG Elemental)] 325 mg PO DAILY 06/22/22 [History] Isosorbide Mononitrate ER [Imdur] 30 mg PO DAILY 06/22/22 [History] Cholecalciferol [Vitamin D3 (25 Mcg = 1000 Iu)] 50 mcg PO DAILY 12/20/22 [History] Atorvastatin [Lipitor] 20 mg PO HS 12/25/22 [History] Aspirin EC [Ecotrin Low Dose] 81 mg PO DAILY 05/11/23 [History] Losartan Potassium 100 mg PO DAILY 05/11/23 [History] carvediloL [Coreg] 12.5 mg PO BID 05/11/23 [History] Diltiazem Oral [Cardizem*] 30 mg PO TID #90 tab 05/13/23 [Rx] Follow up Appointment(s)/Referral(s): Chintan Fritz MD [Primary Care Provider] - 1-2 days Mason Arechiga MD [STAFF PHYSICIAN] - 05/29/23 3:45 pm Patient Instructions/Handouts: Supraventricular Tachycardia (DC) Activity/Diet/Wound Care/Special Instructions: Please see your micro computer data processor. Discharge Disposition: HOME SELF-CARE
--- NOTE | 2023-05-13 17:37 | CA ---
Transthoracic Echo Report Name: Nanci Concepcion Age: 72 Gender: F : 1950 Exam Date: 05/13/2023 10:27 Exam Location: [facility] Ht (in): 64 Wt (lb): 190 Ordering Physician: Won Brand MD Attending/Referring Phys: [id number], Cathie Wool Shearer Guero Roe Procedure CPT: Indications: New A-Fib Cardiac Hx: Technical Quality: Fair Contrast 1: Total Dose (mL): Contrast 2: Total Dose (mL): MEASUREMENTS (Male / Female) Normal Values 2D ECHO LV Diastolic Diameter PLAX 3.7 cm 4.2 - 5.9 / 3.9 - 5.3 cm IVS Diastolic Thickness 1.3 cm 0.6 - 1.0 / 0.6 - 0.9 cm LVPW Diastolic Thickness 1.2 cm 0.6 - 1.0 / 0.6 - 0.9 cm LV Relative Wall Thickness 0.7 RV Internal Dim ED PLAX 2.0 cm LVOT Diameter 2.0 cm Aortic Root Diameter 3.3 cm LA Systolic Diameter LX 1.8 cm 3.0 - 4.0 / 2.7 - 3.8 cm LV Diastolic Volume MOD BP 42.4 cm??? 67 - 155 / 56 - 104 cm??? LV Systolic Volume MOD BP 12.9 cm??? - 58 / 19 - 49 cm??? LV Ejection Fraction MOD BP 69.5 % >= 55 % LV Cardiac Index MOD BP 985.3 cm???/min???m??? LV Diastolic Volume MOD 4C 38.9 cm??? LV Systolic Volume MOD 4C 13.1 cm??? LV Ejection Fraction MOD 4C 66.4 % LV Cardiac Index MOD 4C 862.9 cm???/min???m??? LV Diastolic Length 4C 6.5 cm LV Systolic Length 4C 5.9 cm LV Diastolic Volume MOD 2C 43.1 cm??? LV Systolic Volume MOD 2C 12.4 cm??? LV Ejection Fraction MOD 2C 71.2 % LV Cardiac Index MOD 2C 1024.0 cm???/min???m??? LV Diastolic Length 2C 7.0 cm LV Systolic Length 2C 5.7 cm LA Volume 38.5 cm??? 18 - 58 / 22 - 52 cm??? LA Volume Index 19.2 cm???/m??? 16 - 28 cm???/m??? DOPPLER AV Peak Velocity 104.6 cm/s AV Peak Gradient 4.4 mmHg LVOT Peak Velocity 90.0 cm/s LVOT Peak Gradient 3.2 mmHg LVOT Velocity Time Integral 21.7 cm LVOT Stroke Volume 66.0 cm??? LVOT Stroke Volume Index 34.5 ml/m??? LVOT Cardiac Index 2203.1 cm???/min???m??? AV Area Cont Eq pk 2.6 cm??? MV Peak Velocity 125.3 cm/s MV Peak Gradient 6.3 mmHg MV Mean Velocity 57.7 cm/s MV Mean Gradient 1.8 mmHg MV Velocity Time Integral 46.6 cm Mitral E Point Velocity 84.9 cm/s Mitral A Point Velocity 110.3 cm/s Mitral E to A Ratio 0.8 MV Deceleration Time 309.5 ms MV E' Velocity 5.0 cm/s Mitral E to MV E' Ratio 17.0 PV Peak Velocity 80.9 cm/s PV Peak Gradient 2.6 mmHg FINDINGS Left Ventricle Normal LV size. Mild concentric LVH. Left ventricular ejection fraction is estimated at 55-60 %. Right Ventricle Normal right ventricular size. Right Atrium Normal right atrial size. Left Atrium Normal left atrial size. LA volume index= 20ml/m2 Mitral Valve Structurally normal mitral valve. No mitral regurgitation. Aortic Valve Aortic valve not well visualized but grossly normal. No aortic valve stenosis or regurgitation. Tricuspid Valve Tricuspid valve not well visualized. Trace TR. Pulmonic Valve Pulmonic valve not well visualized. Mild PI. Pericardium Normal pericardium. Aorta Normal size aortic root and proximal ascending aorta. CONCLUSIONS LVH with preserved systolic function Previewed by: Dr. Alec Mcnulty MD (Electronically Signed) Final Date: 13 May 2023 17:36
== END 2023-05-13 16:27 | disposition home or self-care (01) | DRG 282 ==
LOC: EC 18:27 → 3SCARD 20:21
PROVIDERS: ADMIT Internal Medicine; ATTEND Internal Medicine
DX: I47.19 Other supraventricular tachycardia (principal); I21.A1 Myocardial infarction type 2; I48.92 Unspecified atrial flutter; I10 Essential (primary) hypertension; E78.5 Hyperlipidemia, unspecified; F41.9 Anxiety disorder, unspecified; I25.10 Atherosclerotic heart disease of native coronary artery without angina pectoris; I08.1 Rheumatic disorders of both mitral and tricuspid valves; I25.2 Old myocardial infarction; I45.89 Other specified conduction disorders; I48.91 Unspecified atrial fibrillation; Z79.82 Long term (current) use of aspirin; Z79.899 Other long term (current) drug therapy; Z87.891 Personal history of nicotine dependence
CPT/HCPCS: 36415; 71046; 80048; 80053; 83735; 84443; 84484; 85025; 85610; 85730; 93005; 93306; 94760; 96361; 96365; 96366; 96375; 99291

== ENCOUNTER 2024-04-10 11:21 | Emergency (ER) | payer MEDICARE ==
--- NOTE | 2024-04-10 12:49 | ED ---
General Adult HPI - General Chief complaint: Shortness of Breath Stated complaint: Hypertension Time Seen by Provider: 04/10/24 11:28 Source: patient, EMS Mode of arrival: EMS Limitations: no limitations - History of Present Illness Initial comments: Dictation was produced using [employer] Bur[employer] dictation software. please excuse any grammatical, word or spelling errors. Chief Complaint: 73-year-old female presents to the emergency department with hypertension palpitations History of Present Illness: Patient 73-year-old female presents to the emergency department hypertension palpitations she did not feel well. States that her symptoms reminded her of when she goes into SVT. She takes SVT medications. Patient states that she dunked her face in cold water. She checked her blood pressure after it is found to be high. Patient states that at the bedside she feels relatively at baseline. The ROS documented in this emergency department record has been reviewed and confirmed by me. Those systems with pertinent positive or negative responses have been documented in the HPI. All other systems are other negative and/or noncontributory. - Related Data Home Medications Medication Instructions Recorded Confirmed Nitroglycerin Sl Tabs [Nitrostat] 0.4 mg SL Q5M PRN 12/27/20 05/11/23 Ferrous Sulfate [Iron (65 MG 325 mg PO DAILY 06/22/22 05/11/23 Elemental)] Isosorbide Mononitrate ER [Imdur] 30 mg PO DAILY 06/22/22 05/11/23 Cholecalciferol [Vitamin D3 (25 50 mcg PO DAILY 12/20/22 05/11/23 Mcg = 1000 Iu)] Atorvastatin [Lipitor] 20 mg PO HS 12/25/22 05/11/23 Aspirin EC [Ecotrin Low Dose] 81 mg PO DAILY 05/11/23 05/11/23 Losartan Potassium 100 mg PO DAILY 05/11/23 05/11/23 carvediloL [Coreg] 12.5 mg PO BID 05/11/23 05/11/23 Previous Rx's Medication Instructions Recorded Diltiazem Oral [Cardizem*] 30 mg PO TID #90 tab 05/13/23 Allergies Allergy/AdvReac Type Severity Reaction Status Date / Time No Known Allergies Allergy Verified 04/10/24 11:28 Review of Systems ROS Statement: Those systems with pertinent positive or pertinent negative responses have been documented in the HPI. ROS Other: All systems not noted in ROS Statement are negative. Past Medical History Past Medical History: Atrial Fibrillation, Hyperlipidemia, Hypertension, Myocardial Infarction (IA), Sleep Apnea/CPAP/BIPAP Additional Past Medical History / Comment(s): uses cpap Last Myocardial Infarction Date:: 04/2020 History of Any Multi-Drug Resistant Organisms: None Reported Past Surgical History: Heart Catheterization Past Anesthesia/Blood Transfusion Reactions: No Reported Reaction Additional Past Anesthesia/Blood Transfusion Reaction / Comment(s): no known of hx blood transfusion Past Psychological History: No Psychological Hx Reported Smoking Status: Former smoker Past Alcohol Use History: Occasional Past Drug Use History: None Reported - Past Family History Mother Additional Family Medical History / Comment(s): Low blood pressure Father Family Medical History: COPD General Exam - General Exam Comments Initial Comments: PHYSICAL EXAM: General Impression: Alert and oriented x3, not in acute distress HEENT: Normocephalic atraumatic, extra-ocular movements intact, pupils equal and reactive to light bilaterally, mucous membranes moist. Cardiovascular: Heart regular rate and rhythm Chest: Able to complete full sentences, no retractions, no tachypnea Abdomen: abdomen soft, non-tender, non-distended, no organomegaly Musculoskeletal: Pulses present and equal in all extremities, no peripheral edema Motor: no focal deficits noted Neurological: CN II-XII grossly intact, no focal motor or sensory deficits noted Skin: Intact with no visualized rashes Psych: Normal affect and mood Limitations: no limitations Course Vital Signs 04/10/24 11:23 Temperature 98.5 F Pulse Rate 64 Respiratory 18 Rate Blood Pressure 147/77 O2 Sat by Pulse 98 Oximetry EKG Findings - EKG Comments: EKG Findings:: My EKG interpretation: Ventricular rate 62, sinus rhythm,. 167, QRS 101, QTc 425. No GA prolongation, no QTC prolongation, no ST or T-wave c hanges noted. Overall, this EKG is unremarkable Medical Decision Making - Medical Decision Making Was pt. sent in by a medical professional or institution (, PA, CEREAL MAKER, urgent care, hospital, or [facility]...) When possible be specific @ -No Did you speak to anyone other than the patient for history (EMS, parent, family, police, friend...)? What history was obtained from this source @ -No Did you review nursing and triage notes (agree or disagree)? Why? @ -I reviewed and agree with nursing and triage notes Were old charts reviewed (outside hosp., previous admission, EMS record, old EKG, old radiological studies, urgent care reports/EKG's, [facility] records)? Report findings @ -No old charts were reviewed Differential Diagnosis (chest pain, altered mental status, abdominal pain women, abdominal pain men, vaginal bleeding, musculoskeletal, weakness, fever, dyspnea, syncope, headache, dizziness, GI bleed, back pain, seizure, CVA, palpatations, mental health)? @ - Differential Palpitations: Ventricular arrhythmias, atrial arrhythmias, myocardial infarction, anemia, thyrotoxicosis, electrolyte imbalance, hypokalemia, pulmonary embolism, pulmonary disease, drugs, alcohol, anxiety, stress.... This is not meant to be an all-inclusive list. EKG interpreted by me (3pts min.). @ -See above X-rays interpreted by me (1pt min.). @ -Chest x-ray is nonacute CT interpreted by me (1pt min.). @ -None done U/S interpreted by me (1pt. min.). @ -None done What testing was considered but not performed or refused? (CT, X-rays, U/S, labs)? Why? @ -None What meds were considered but not given or refused? Why? @ -None Was smoking cessation discussed for >3mins.? @ -No Were there social determinants of health that impacted care today? How? (Homelessness, low income, unemployed, alcoholism, drug addiction, transportation, low edu. Level, literacy, decrease access to med. care, penitentiary, rehab)? @ -No Was there de-escalation of care discussed even if they declined (Discuss DNR or withdrawal of care, Hospice)? DNR status @ -No What co-morbidities impacted this encounter? (DM, HTN, Smoking, COPD, CAD, Cancer, CVA, ARF, Chemo, Hep., AIDS, mental health diagnosis, sleep apnea, morbid obesity)? @ -None Was patient admitted / discharged? Hospital course, mention meds given and route, prescriptions, significant lab abnormalities, going to OR and other pertinent info. @ -73-year-old female presents to the emergency department with chief complaint of hypertension and feeling as if she would convert into SVT. Vital signs stable. Patient well-appearing at the bedside. She does not have any symptoms of hypertensive emergency. Denies chest pain headache shortness of breath or strokelike symptoms. Laboratory evaluation is unremarkable. Patient observed emergency department for approximately 3 hours. information systems supervisor reviewed showing no arrhythmias. Patient discharged advised follow-up with primary care doctor and human resources advisor. Did you discuss the management of the patient with other professionals (professionals i.e. , PA, CEREAL MAKER, lab, RT, psych nurse, director social welfare, health analyst, teacher, mail officer, upper caser)? Give summary @ -No Was critical care preformed (if so, how long)? @ -No Undiagnosed new problem with uncertain prognosis? @ -No Drug Therapy requiring intensive monitoring for toxicity (Heparin, Nitro, Insulin, Cardizem)? @ -No Were any procedures done? @ -No Diagnosis/symptom? Acute, or Chronic, or Acute on Chronic? Uncomplicated (without systemic symptoms) or Complicated (systemic symptoms)? @ -Hypertension Side effects of treatment? @ -No Exacerbation, Progression, or Severe Exacerbation? @ -No Poses a threat to life or bodily function? How? (Chest pain, USA, IA, pneumonia, PE, COPD, DKA, ARF, appy, cholecystitis, CVA, Diverticulitis, Homicidal, Suicidal, threat to staff... and all critical care pts) @ -No - Lab Data Result diagrams: 04/10/24 13:20 04/10/24 12:21 Lab Results 04/10/24 04/10/24 04/10/24 Range/Units 12:21 12:21 13:20 WBC 7.7 (3.8-10.6) k/uL RBC 5.00 (3.80-5.40) m/uL Hgb 14.9 (11.4-16.0) gm/dL Hct 45.2 (34.0-46.0) % MCV 90.3 (80.0-100.0) fL MCH 29.9 (25.0-35.0) pg MCHC 33.1 (31.0-37.0) g/dL RDW 13.9 (11.5-15.5) % Plt Count 169 (150-450) k/uL MPV 9.5 Neutrophils % 73 % Lymphocytes % 18 % Monocytes % 5 % Eosinophils % 3 % Basophils % 0 % Neutrophils # 5.6 (1.3-7.7) k/uL Lymphocytes # 1.4 (1.0-4.8) k/uL Monocytes # 0.4 (0-1.0) k/uL Eosinophils # 0.2 (0-0.7) k/uL Basophils # 0.0 (0-0.2) k/uL PT (10.0-12.5) sec INR (<1.2) APTT (22.0-30.0) sec Sodium 137 (137-145) mmol/L Potassium 4.1 (3.5-5.1) mmol/L Chloride 105 (98-107) mmol/L Carbon Dioxide 25 (22-30) mmol/L Anion Gap 7 mmol/L BUN 21 H (7-17) mg/dL Creatinine 0.82 (0.52-1.04) mg/dL Est GFR (CKD-EPI)AfAm 82 (>60 ml/min/1.73 sqM) Est GFR (CKD-EPI)NonAf 71 (>60 ml/min/1.73 sqM) Glucose 91 (74-99) mg/dL Calcium 9.6 (8.4-10.2) mg/dL Magnesium 1.9 (1.6-2.3) mg/dL Total Bilirubin 0.8 (0.2-1.3) mg/dL AST 30 (14-36) U/L ALT 29 (4-34) U/L Alkaline Phosphatase 96 (38-126) U/L Troponin I <0.012 (0.000-0.034) ng/mL Total Protein 6.4 (6.3-8.2) g/dL Albumin 3.8 (3.5-5.0) g/dL 04/10/24 Range/Units 14:07 WBC (3.8-10.6) k/uL RBC (3.80-5.40) m/uL Hgb (11.4-16.0) gm/dL Hct (34.0-46.0) % MCV (80.0-100.0) fL MCH (25.0-35.0) pg MCHC (31.0-37.0) g/dL RDW (11.5-15.5) % Plt Count (150-450) k/uL MPV Neutrophils % % Lymphocytes % % Monocytes % % Eosinophils % % Basophils % % Neutrophils # (1.3-7.7) k/uL Lymphocytes # (1.0-4.8) k/uL Monocytes # (0-1.0) k/uL Eosinophils # (0-0.7) k/uL Basophils # (0-0.2) k/uL PT 10.5 (10.0-12.5) sec INR 0.9 (<1.2) APTT 24.5 (22.0-30.0) sec Sodium (137-145) mmol/L Potassium (3.5-5.1) mmol/L Chloride (98-107) mmol/L Carbon Dioxide (22-30) mmol/L Anion Gap mmol/L BUN (7-17) mg/dL Creatinine (0.52-1.04) mg/dL Est GFR (CKD-EPI)AfAm (>60 ml/min/1.73 sqM) Est GFR (CKD-EPI)NonAf (>60 ml/min/1.73 sqM) Glucose (74-99) mg/dL Calcium (8.4-10.2) mg/dL Magnesium (1.6-2.3) mg/dL Total Bilirubin (0.2-1.3) mg/dL AST (14-36) U/L ALT (4-34) U/L Alkaline Phosphatase (38-126) U/L Troponin I (0.000-0.034) ng/mL Total Protein (6.3-8.2) g/dL Albumin (3.5-5.0) g/dL Disposition Clinical Impression: Hypertension Disposition: HOME SELF-CARE Condition: Good Instructions (If sedation given, give patient instructions): Dizziness (ED) Is patient prescribed a controlled substance at d/c from ED?: No Referrals: Chintan Fritz MD [Primary Care Provider] - 1-2 days Time of Disposition: 14:35
[2024-04-10 12:51] LABS: ALT 29 U/L (4-34); AST 30 U/L (14-36); African American GFR (CKD) 82 (>60 ml/min/1.73 sqM); Albumin 3.8 g/dL (3.5-5.0); Alkaline Phosphatase 96 U/L (38-126); Anion Gap 7 mmol/L; Blood Urea Nitrogen 21 mg/dL (7-17); Calcium 9.6 mg/dL (8.4-10.2); Carbon Dioxide 25 mmol/L (22-30); Chloride 105 mmol/L (98-107); Glucose 91 mg/dL (74-99); Magnesium 1.9 mg/dL (1.6-2.3); Non-African American GFR(CKD) 71 (>60 ml/min/1.73 sqM); Potassium 4.1 mmol/L (3.5-5.1); Sodium 137 mmol/L (137-145); Total Bilirubin 0.8 mg/dL (0.2-1.3); Total Protein 6.4 g/dL (6.3-8.2)
--- NOTE | 2024-04-10 12:57 | XR ---
EXAMINATION TYPE: XR chest 2V DATE OF EXAM: 04/10/2024 COMPARISON: 05/11/2023 HISTORY: 73-year-old female with chest pain and elevated blood pressure TECHNIQUE: AP and lateral views FINDINGS: Low lung volumes. Eventration anterior right hemidiaphragm. Underlying moderate to large hiatal herni a projecting behind the heart. Mild interstitial prominence has a chronic appearance. No matt consol idation or pleural effusion. IMPRESSION: Hypoventilatory changes. Known moderate to large hiatal hernia. Correlate for any associated symptoms .
[2024-04-10 13:37] LABS: Basophils % (A) 0 %; Eosinophils # (A) 0.2 k/uL (0-0.7); Eosinophils % (A) 3 %; HCT 45.2 % (34.0-46.0); HGB 14.9 gm/dL (11.4-16.0); Lymphocytes # (A) 1.4 k/uL (1.0-4.8); Lymphocytes % (A) 18 %; MCH 29.9 pg (25.0-35.0); MCHC 33.1 g/dL (31.0-37.0); MCV 90.3 fL (80.0-100.0); Mean Platelet Volume 9.5; Monocytes # (A) 0.4 k/uL (0-1.0); Monocytes % (A) 5 %; Neutrophils # (A) 5.6 k/uL (1.3-7.7); Neutrophils % (A) 73 %; Platelet Count 169 k/uL (150-450); RDW 13.9 % (11.5-15.5); WBC 7.7 k/uL (3.8-10.6)
[2024-04-10 14:30] LABS: INR 0.9 (<1.2); Partial Thromboplastin Time 24.5 sec (22.0-30.0); Prothrombin Time 10.5 sec (10.0-12.5)
[2024-04-10 14:49] VITALS: BP 144/76; PULSE 60; RESP 20; TEMP 98.4
== END 2024-04-10 15:01 | disposition home or self-care (01) ==
LOC: EC 11:21
DX: I10 Essential (primary) hypertension (principal)
CPT/HCPCS: 36415; 71046; 80053; 83735; 84484; 85025; 85610; 85730; 93005; 99285

== ENCOUNTER → 2024-09-30 | Outpatient (CLI) | payer MEDICARE ==
--- NOTE | 2024-10-01 07:52 | MR ---
EXAMINATION TYPE: MR cervical spine wo con DATE OF EXAM: 09/30/2024 3:04 PM COMPARISON: None. CLINICAL INDICATION: Female, 74 years old with history of M54.12 radiculopathy, neck discomfort for a bout 3 months TECHNIQUE: Multi planar, multi sequence imaging was performed utilizing: T1-weighted, T2-weighted, an d turbo inversion recovery imaging of the cervical spine. IV Contrast: mL (None, if empty) FINDINGS: Alignment: The cervical vertebral bodies have preserved heights. Alignment is within normal limits gi romy patient positioning. Bones: Scattered endplate changes with osteophytes and disc space narrowing. Multilevel degenerative disc disease is noted and most pronounced at the C5-C7 vertebral levels. Cord: The spinal cord is unremarkable with regards to their signal intensity and morphology. Discs: Intervertebral disc signal is maintained. C2-C3: No significant disc pathology. The spinal canal is patent. No neural foraminal stenosis. C3-C4: No significant disc pathology. The spinal canal is patent. Bilateral facet and uncovertebral joint arthropathy are present with mild bilateral neural foraminal stenosis. C4-C5: A disc osteophyte complex is present which minimally narrows the ventral subarachnoid space. Bilateral facet and uncovertebral joint arthropathy are present with moderate right and mild left ne ural foraminal stenosis. C5-C6: A disc osteophyte complex is present which minimally narrows the ventral subarachnoid space. Bilateral facet and uncovertebral joint arthropathy are present with moderate bilateral neural johnny inal stenosis. C6-C7: No significant disc pathology. The spinal canal is patent. Bilateral facet and uncovertebral joint arthropathy are present with moderate left and mild right neural foraminal stenosis. C7-T1: No significant disc pathology. The spinal canal is patent. No neural foraminal stenosis. Other: None. IMPRESSION: 1. No evidence for disc herniation or significant spinal canal stenosis. 2. Moderate disc degeneration with associated osteoarthritic changes. [facility], , 10/01/2024 7:50 AM
== END | disposition home or self-care (01) ==
LOC: RADMRIMAIN 14:09
PROVIDERS: ATTEND Family Medicine
DX: M50.10 Cervical disc disorder with radiculopathy, unspecified cervical region (principal); M99.71 Connective tissue and disc stenosis of intervertebral foramina of cervical region
CPT/HCPCS: 72141